=== PATIENT | female | born 2000 | race Caucasian/White ===

== ENCOUNTER 2018-05-13 14:16 | Emergency (ER) | payer OTHER, SELFPAY ==
--- NOTE | 2018-05-13 14:45 | ER ---
Nurse's Notes [facility] Name: Abi Reynolds Age: 18 yrs Sex: Female : 2000 Arrival Date: 05/13/2018 Time: 14:19 Bed 24 Private MD: Diagnosis: Bronchitis, not specified as acute or chronic;Otitis media, unspecified, bilateral Presentation: 05/13 14:23 Presenting complaint: Patient states: nohelia been sick for 6-8 weeks now; my both ears hj have been hurting for a week now and im congested; reports cough; denies fever and chills;. Transition of care: patient was not received from another setting of care. Onset of symptoms was May 13, 2018. Risk Assessment: Do you want to hurt yourself or someone else? Patient reports no desire to harm self or others. Initial Sepsis Screen: Does the patient meet any 2 criteria? No. Patient's initial sepsis screen is negative. Does the patient have a suspected source of infection? Yes: Productive cough/pneumonia. Care prior to arrival: None. 14:23 Method Of Arrival: Ambulatory 14:23 Acuity: MALINA 4 hj Triage Assessment: 14:25 General: Appears in no apparent distress. uncomfortable, Behavior is calm, cooperative, hj appropriate for age. Pain: Denies pain. EENT: Reports pain. 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 - Social history:: Smoking status: Patient uses tobacco products, Patient uses alcohol. - Ebola Screening: : Patient negative for fever greater than or equal to 101.5 degrees Fahrenheit, and additional compatible Ebola Virus Disease symptoms Patient denies exposure to infectious person Patient denies travel to an Ebola-affected area in the 21 days before illness onset. Screenin:25 Abuse screen: Denies threats or abuse. Has been threatened or abused. Abuse screen: hj Denies injuries from another. Nutritional screening: On. Nutritional screening: No deficits noted. Tuberculosis screening: No symptoms or risk factors identified. Fall Risk None identified. Assessment: 14:25 Respiratory: Airway is patent Respiratory effort is even, unlabored, Respiratory hj pattern is regular, symmetrical, Breath sounds are clear. EENT: Throat. 14:55 Reassessment: Patient appears in no apparent distress at this time. No changes from tl3 previously documented assessment. Patient and/or family updated on plan of care and expected duration. Pain level reassessed. Patient is alert, oriented x 3, equal unlabored respirations, skin warm/dry/pink. 15:00 General: Appears in no apparent distress. slender, well groomed, well developed, well tl3 nourished, Behavior is calm, cooperative, appropriate for age. 15:00 Reassessment: No changes from previously documented assessment. Patient and/or family tl3 updated on plan of care and expected duration. Pain level reassessed. Patient is alert, oriented x 3, equal unlabored respirations, skin warm/dry/pink. Vital Signs: 14:25 BP 119 / 81; Pulse 85; Resp 18; Temp 97.9(TE); Pulse Ox 99% on R/A; Weight 74.84 kg; hj Height 5 ft. 6 in. (167.64 cm); Pain 0/10; 14:56 BP 107 / 75; Pulse 82; Resp 18; Pulse Ox 100% on R/A; tl3 14:25 Body Mass Index 26.63 (74.84 kg, 167.64 cm) ED Course: 14:19 Patient arrived in ED. mr 14:24 Triage completed. hj 14:25 Arm band placed on right wrist. hj 14:26 Patient has correct armband on for positive identification. Bed in low position. Call hj light in reach. Side rails up X 1. 14:28 Jane Mcduffie, ARY is Primary Nurse. tl3 14:29 Ct Krause FNP-C is PHCP. snw 14:29 Vincent Perez MD is Attending Physician. snw 14:37 Strep swab sent to lab. tm3 14:56 No provider procedures requiring assistance completed. Patient did not have IV access tl3 during this emergency room visit. Administered Medications: 14:50 Drug: predniSONE 20 mg Route: PO; tl3 15:31 Follow up: Response: Medication administered at discharge. tl3 14:50 Drug: Augmentin 875 mg Route: PO; tl3 15:31 Follow up: Response: Medication administered at discharge. tl3 14:50 Drug: Albuterol 2.5 mg Route: Inhalation; tl3 15:30 Follow up: Response: Medication administered at discharge. tl3 14:50 Drug: ZyrTEC - Cetirizine 10 mg Route: PO; tl3 15:30 Follow up: Response: Medication administered at discharge. tl3 Outcome: 14:45 Discharge ordered by MD. arreguin 14:56 Discharged to home ambulatory. tl3 14:56 Condition: good 14:56 Discharge instructions given to patient, Instructed on discharge instructions, follow up and referral plans. medication usage, Demonstrated understanding of instructions, follow-up care, medications, Prescriptions given X 3. 15:34 Patient left the ED. tl3 Signatures: Marko Jaimes tm3 Ct Krause, JOB HAND-C JOB HAND-Csnw CoffmanDaniela esteves mr LangstonFroylan, RN RN Jane Alberts RN RN tl3 Corrections: (The following items were deleted from the chart) 14:27 14:25 Pulse 85bpm; Resp 18bpm; Pulse Ox 99% RA; Temp 97.9F Temporal; 74.84 kg; Height 5 hj ft. 6 in.; BMI: 26.6; Pain 0/10; hj 15:33 14:56 General: Appears in no apparent distress. slender, well groomed, well developed, tl3 well nourished, Behavior is calm, cooperative, appropriate for age, tl3 15:33 14:56 Pain: Complains of pain in throat tl3 tl3 15:33 14:56 Neuro: Level of Consciousness is awake, alert, obeys commands, Oriented to tl3 person, place, time, situation, Appropriate for age tl3 15:33 14:56 Cardiovascular: Patient's skin is warm and dry. tl3 tl3 15:33 14:56 Respiratory: Airway is patent Respiratory effort is even, unlabored, Respiratory tl3 pattern is regular, symmetrical, tl3 15:33 14:56 GI: No deficits noted. No signs and/or symptoms were reported involving the tl3 gastrointestinal system. tl3 15:33 14:56 : No deficits noted. No signs and/or symptoms were reported regarding the tl3 genitourinary system. tl3 15:33 14:56 EENT: Throat is reddened tl3 tl3 15:33 14:56 Derm: No signs and/or symptoms reported regarding the dermatologic system. tl3 tl3 15:33 14:56 Musculoskeletal: No deficits noted. No signs and/or symptoms reported regarding tl3 the musculoskeletal system. tl3
--- NOTE | 2018-05-13 14:45 | EDPHYS ---
Physician Documentation [facility] Name: Abi Reynolds Age: 18 yrs Sex: Female : 2000 Arrival Date: 05/13/2018 Time: 14:19 Bed 24 Private MD: ED Physician Vincent Perez HPI: 05/13 14:42 This 18 yrs old Female presents to ER via Ambulatory with complaints of snw Cough, Sore Throat. 14:42 The patient or guardian reports cough, intermittent, ear fullness, sinus pain, snw congestion, sore throat. Onset: The symptoms/episode began/occurred gradually, intermittent over 6-8 weeks. Severity of symptoms: At their worst the symptoms were mild, moderate. Associated signs and symptoms: The patient has no apparent associated signs or symptoms, Pertinent negatives: fever. The patient has not experienced similar symptoms in the past. The patient has not recently seen a physician. 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 - Social history:: Smoking status: Patient uses tobacco products, Patient uses alcohol. - Ebola Screening: : Patient negative for fever greater than or equal to 101.5 degrees Fahrenheit, and additional compatible Ebola Virus Disease symptoms Patient denies exposure to infectious person Patient denies travel to an Ebola-affected area in the 21 days before illness onset. ROS: 14:41 Constitutional: Negative for fever, chills, and weight loss, Eyes: Negative for injury, snw pain, redness, and discharge, Neck: Negative for injury, pain, and swelling, Cardiovascular: Negative for chest pain, palpitations, and edema, Abdomen/GI: Negative for abdominal pain, nausea, vomiting, diarrhea, and constipation, Back: Negative for injury and pain, : Negative for injury, bleeding, discharge, and swelling, MS/Extremity: Negative for injury and deformity, Skin: Negative for injury, rash, and discoloration, Neuro: Negative for headache, weakness, numbness, tingling, and seizure. 14:41 ENT: Positive for sinus congestion, sinus pain, sore throat. 14:41 Respiratory: Positive for cough, with no reported sputum. Exam: 14:39 Constitutional: This is a well developed, well nourished patient who is awake, alert, snw and in no acute distress. Head/Face: Normocephalic, atraumatic. Eyes: Pupils equal round and reactive to light, extra-ocular motions intact. Lids and lashes normal. Conjunctiva and sclera are non-icteric and not injected. Cornea within normal limits. Periorbital areas with no swelling, redness, or edema. ENT: Nares patent. No nasal discharge, no septal abnormalities noted. Tympanic membranes are erythematous with fluid visible and external auditory canals are clear. Oropharynx with redness, no swelling, or masses, exudates, or evidence of obstruction, uvula midline. Mucous membranes moist. Neck: Trachea midline, no thyromegaly or masses palpated, and no cervical lymphadenopathy. Supple, full range of motion without nuchal rigidity, or vertebral point tenderness. No Meningismus. Chest/axilla: Normal chest wall appearance and motion. Nontender with no deformity. No lesions are appreciated. Cardiovascular: Regular rate and rhythm with a normal S1 and S2. No gallops, murmurs, or rubs. Normal PMI, no JVD. No pulse deficits. 14:39 Abdomen/GI: Soft, non-tender, with normal bowel sounds. No distension or tympany. No guarding or rebound. No evidence of tenderness throughout. Back: No spinal tenderness. No costovertebral tenderness. Full range of motion. Skin: Warm, dry with normal turgor. Normal color with no rashes, no lesions, and no evidence of cellulitis. MS/ Extremity: Pulses equal, no cyanosis. Neurovascular intact. Full, normal range of motion. Neuro: Awake and alert, GCS 15, oriented to person, place, time, and situation. Cranial nerves II-XII grossly intact. Motor strength 5/5 in all extremities. Sensory grossly intact. Cerebellar exam normal. Normal gait. Psych: Awake, alert, with orientation to person, place and time. Behavior, mood, and affect are within normal limits. 14:39 Respiratory: the patient does not display signs of respiratory distress, Respirations: normal, Breath sounds: wheezing: that is mild, is heard diffusely. Vital Signs: 14:25 BP 119 / 81; Pulse 85; Resp 18; Temp 97.9(TE); Pulse Ox 99% on R/A; Weight 74.84 kg; hj Height 5 ft. 6 in. (167.64 cm); Pain 0/10; 14:56 BP 107 / 75; Pulse 82; Resp 18; Pulse Ox 100% on R/A; tl3 14:25 Body Mass Index 26.63 (74.84 kg, 167.64 cm) hj MDM: 14:30 Patient medically screened. snw 14:46 Data reviewed: vital signs, nurses notes. Data interpreted: Pulse oximetry: on room air snw is 99 %. Interpretation: normal. Counseling: I had a detailed discussion with the patient and/or guardian regarding: the historical points, exam findings, and any diagnostic results supporting the discharge/admit diagnosis, the need for outpatient follow up, to return to the emergency department if symptoms worsen or persist or if there are any questions or concerns that arise at home. Special discussion: Based on the history and exam findings, there is no indication for further emergent testing or inpatient evaluation. I discussed with the patient/guardian the need to see the primary care provider for further evaluation of the symptoms. 05/13 14:31 Order name: Strep; Complete Time: 15:04 tl3 05/13 15:02 Order name: Throat Culture EDMS Administered Medications: 14:50 Drug: predniSONE 20 mg Route: PO; tl3 15:31 Follow up: Response: Medication administered at discharge. tl3 14:50 Drug: Augmentin 875 mg Route: PO; tl3 15:31 Follow up: Response: Medication administered at discharge. tl3 14:50 Drug: Albuterol 2.5 mg Route: Inhalation; tl3 15:30 Follow up: Response: Medication administered at discharge. tl3 14:50 Drug: ZyrTEC - Cetirizine 10 mg Route: PO; tl3 15:30 Follow up: Response: Medication administered at discharge. tl3 Disposition: 17:53 Co-signature as Attending Physician, Vincent Perez MD. rn Disposition: 05/13/18 14:45 Discharged to Home. Impression: Bronchitis, not specified as acute or chronic, Otitis media, unspecified, bilateral. - Condition is Stable. - Discharge Instructions: Acute Bronchitis, Adult, Otitis Media, Adult, Fever, Adult, Hypertension, How to Use an Inhaler, Steps to Quit Smoking, Cool Mist Vaporizer, Rehydration, Adult. - Prescriptions for Augmentin 875- 125 mg Oral Tablet - take 1 tablet by ORAL route every 12 hours for 10 days; 20 tablet. Zyrtec 10 mg Oral Tablet - take 1 tablet by ORAL route once daily As needed; 20 tablet. Albuterol Sulfate 90 mcg/actuation - inhale 1-2 puff by INHALATION route every 4-6 hours; 1 Inhaler. - Medication Reconciliation Form, Thank You Letter, Antibiotic Education, Prescription Opioid Use form. - Follow up: Private Physician; When: 2 - 3 days; Reason: Recheck today's complaints, Continuance of care, Re-evaluation by your physician. Follow up: Emergency Department; When: As needed; Reason: Worsening of condition. Signatures: Dispatcher [employer] EDMS Ct Krause, SYSTEM PLANNING ENGINEER-C SYSTEM PLANNING ENGINEER-Csnw Vincent Perez MD MD rn Joaquin, Henry, RN RN hj Lowrey, Tammy, RN RN tl3 Corrections: (The following items were deleted from the chart) 15:34 14:45 05/13/2018 14:45 Discharged to Home. Impression: Bronchitis, not specified as tl3 acute or chronic; Otitis media, unspecified, bilateral. Condition is Stable. Forms are Medication Reconciliation Form, Thank You Letter, Antibiotic Education, Prescription Opioid Use. Follow up: Private Physician; When: 2 - 3 days; Reason: Recheck today's complaints, Continuance of care, Re-evaluation by your physician. Follow up: Emergency Department; When: As needed; Reason: Worsening of condition. snw
[2018-05-13] MEDS ORDERED: CETIRIZINE HCL 5 MG TABLET ONE (14:57)
[2018-05-13] MEDS ORDERED: ALBUTEROL 2.5 MG/3 ML NEB SOL ONE (14:58)
[2018-05-13] MEDS ORDERED: predniSONE 20 MG TAB ONE (14:58)
[2018-05-13] MEDS ORDERED: AMOX/K CLAV 875 MG TAB ONE (14:59)
--- OUTSIDE RECORDS SUMMARY | 2018-05-13 19:02 | XMS REPORT | Summary of Care ---
:2000 Author Organization [facility] Address [address] [place], [place] [address]- Encounter HQ Xander(FIN) [id number] Date(s): 07/13/16 - 07/13/16 [facility] [address] [place] [address]- [phone] Discharge Diagnosis: Nausea vomiting and diarrhea Discharge Diagnosis: Abdominal pain, acute Discharge Disposition: Home or Self Care Attending Physician: Saw Guaman MD Vital Signs Most recent to oldest 1 2 3 [Reference Range]: Height 167.64 cm (07/13/16 2:47 PM) Temperature Oral [96.4-99.1 97.8 DegF 98.2 DegF DegF] (07/13/16 7:41 PM) (07/13/16 2:47 PM) Blood Pressure [90-140/60-90 108/71 mmHg 112/67 mmHg 126/89 mmHg mmHg] (07/13/16 8:00 PM) (07/13/16 7:41 PM) (07/13/16 2:47 PM) Respiratory Rate [14-20 BRMIN] 16 BRMIN 16 BRMIN 17 BRMIN (07/13/16 8:00 PM) (07/13/16 7:41 PM) (07/13/16 2:47 PM) Peripheral Pulse Rate [60-100 71 bpm 61 bpm 110 bpm bpm] (07/13/16 8:00 PM) (07/13/16 7:41 PM) *HI* (07/13/16 2:47 PM) Weight 88.636 kg (07/13/16 2:47 PM) Body Mass Index 31.54 m2 (07/13/16 2:47 PM) Problem List No data available for this section Allergies, Adverse Reactions, Alerts Substance Reaction Severity Status NKDA Active Medications famotidine 20 mg, 2 mL, Route: IVP, Drug form: INJ, ONCE, Dosing Weight 88.636, kg, Priority: STAT, Start date:07/13/16 17:48:00 PHYSICAL MEDICINE PHYSICIAN, Stop date: 07/13/16 17:48:00 PHYSICAL MEDICINE PHYSICIAN Notes: (Same as: Pepcid)Can be dilute in 5-10cc NS IVP: Slow IV push over at least 2 minutes. Start Date: 07/13/16 Stop Date: 07/13/16 Status: CompletedGI cocktail 30 mL, Route: PO, Drug Form: SUSP, Dosing Weight 88.636, kg, ONCE, STAT, Start date: 07/13/16 17:48:00 PHYSICAL MEDICINE PHYSICIAN, Stop date: 07/13/16 17:48:00 PHYSICAL MEDICINE PHYSICIAN Notes: G.I. Cocktail=antacid with simethicone 22.5 mL - lidocaine viscous 7.5 mL Start Date: 07/13/16 Stop Date: 07/13/16 Status: Completedondansetron 4 mg, 2 mL, Route: IVP, Drug form: INJ, ONCE, Dosing Weight 88.636, kg, Priority : STAT, Start date: 07/13/16 17:48:00 PHYSICAL MEDICINE PHYSICIAN, Stop date: 07/13/16 17:48:00 PHYSICAL MEDICINE PHYSICIAN Notes: (Same as: Kevin) MEDICATION WASTE Product Size: 4 mgProduct Wasted: ___ mg Start Date: 07/13/16 Stop Date: 07/13/16 Status: Completedondansetron 4 mg oral tablet, disintegrating 4 mg=1 tab, PO, TID, PRN Nausea / Vomiting, Dissolve tab under tongue, X 3 day, # 10 tab, 0 Refill(s) Start Date: 07/13/16 Stop Date: 07/16/16 Status: OrderedSodium Chloride 0.9% (Bolus) IV 1,000 mL, 1000 ml/hr, Infuse Over: 1 hr, Route: IV, 1,000, Drug form: INJ, ONCE , Priority: STAT, Dosing Weight 88.636 kg, Start date: 07/13/16 17:47:00 PHYSICAL MEDICINE PHYSICIAN, Duration: 1 doses or times, Stop date: 07/13/16 17:47:00 PHYSICAL MEDICINE PHYSICIAN Start Date: 07/13/16 Stop Date: 07/13/16 Status: Completed Results ELECTROLYTES Most recent to oldest [Reference Range]: 1 2 Sodium Lvl [135-145 mEq/L] 138 mEq/L (07/13/16 6:27 PM) Potassium Lvl [3.5-5.1 mEq/L] 3.7 mEq/L (07/13/16 6:27 PM) Chloride Lvl [95-109 mEq/L] 103 mEq/L (07/13/16 6:27 PM) CO2 [24-32 mEq/L] 25 mEq/L (07/13/16 6:27 PM) AGAP [10.0-20.0 mEq/L] 13.7 mEq/L (07/13/16 6:27 PM) CHEM PANEL Most recent to oldest [Reference Range]: 1 2 Creatinine Lvl [0.50-1.40 mg/dL] 0.63 mg/dL (07/13/16 6:27 PM) eGFR 131 mL/min/1.73m2 1 *NA* (07/13/16 6:27 PM) BUN [7-22 mg/dL] 10 mg/dL (07/13/16 6:27 PM) B/C Ratio [6-25] 16 (07/13/16 6:27 PM) Glucose Lvl [70-99 mg/dL] 87 mg/dL (07/13/16 6:27 PM) Total Protein [6.4-8.4 g/dL] 7.8 g/dL (07/13/16 6:27 PM) Albumin Lvl [3.5-5.0 g/dL] 3.6 g/dL (07/13/16 6:27 PM) Globulin [2.7-4.2 g/dL] 4.2 g/dL (07/13/16 6:27 PM) A/G Ratio [0.7-1.6] 0.9 (07/13/16 6:27 PM) Calcium Lvl [8.5-10.5 mg/dL] 8.4 mg/dL *LOW* (07/13/16 6:27 PM) ALT [0-65 unit/L] 22 unit/L (07/13/16 6:27 PM) AST [0-37 unit/L] 15 unit/L (07/13/16 6:27 PM) Alk Phos [39-136 unit/L] 43 unit/L (07/13/16 6:27 PM) Bili Total [0.2-1.3 mg/dL] 0.6 mg/dL (07/13/16 6:27 PM) Amylase Lvl [25-115 unit/L] 42 unit/L (07/13/16 6:27 PM) Lipase Lvl [73-393 unit/L] 110 unit/L 107 unit/L (07/13/16 6:27 PM) (07/13/16 6:27 PM) 1Result Comment: The eGFR is calculated using the CKD-EPI formula. In most young , healthy individualsthe eGFR will be >90 mL/min/1.73m2. The eGFR declines with age. An eGFR of 60-89 may be normal in some populations, particularly the elderly, for whom the CKD-EPI formula has not been extensively validated. Use of the eGFR is not recommended in the following populations: Individuals with unstable creatinine concentrations, including patients and those with serious co-morbid conditions. Patients with extremes in muscle mass or diet. The data above are obtained from the National Kidney Disease Education Program ( NKDEP) which additionally recommends that when the eGFR is used in patients with extremes of body mass index for purposesof drug dosing, the eGFR should be multiplied by the estimated BMI.URINE CHEM Most recent to oldest [Reference Range]: 1 2 U Preg [Negative] Negative (07/13/16 6:38 PM) URINE AND STOOL Most recent to oldest [Reference Range]: 1 2 UA Turbidity [Clear] Marked *ABN* (07/13/16 6:38 PM) UA Color [Yellow] Yellow *NA* (07/13/16 6:38 PM) UA pH [5.0-8.0] 6.0 (07/13/16 6:38 PM) UA Spec Grav [<=1.030] 1.027 (07/13/16 6:38 PM) UA Glucose [Negative mg/dL] Negative mg/dL *NA* (07/13/16 6:38 PM) UA Blood [Negative] Negative (07/13/16 6:38 PM) UA Ketones [Negative mg/dL] Trace mg/dL *ABN* (07/13/16 6:38 PM) UA Protein [Negative mg/dL] Negative mg/dL (07/13/16 6:38 PM) UA Urobilinogen [0.1-1.0 mg/dL] <=1.0 mg/dL *NA* (07/13/16 6:38 PM) UA Bili [Negative] Negative *NA* (07/13/16 6:38 PM) UA Leuk Est [Negative] Small *ABN* (07/13/16 6:38 PM) UA Nitrite [Negative] Negative (07/13/16 6:38 PM) UA WBC [0-5 /HPF] 7 /HPF *HI* (07/13/16 6:38 PM) UA RBC [0-2 /HPF] 2 /HPF (07/13/16 6:38 PM) UA Sq Epi [Few /LPF] Many /LPF *ABN* (07/13/16 6:38 PM) UA Renal Epi [<=0 /LPF] 7 /LPF *HI* (07/13/16 6:38 PM) UA Mucus [None Seen /LPF] Few /LPF *NA* (07/13/16 6:38 PM) HEMATOLOGY Most recent to oldest [Reference Range]: 1 2 WBC [3.7-10.4 K/CMM] 14.9 K/CMM *HI* (07/13/16 6:27 PM) RBC [4.20-5.40 M/CMM] 5.03 M/CMM (07/13/16 6:27 PM) Hgb [12.0-16.0 g/dL] 13.7 g/dL (07/13/16 6:27 PM) Hct [36.0-48.0 %] 41.5 % (07/13/16 6:27 PM) MCV [80.0-98.0 fL] 82.5 fL (07/13/16 6:27 PM) MCH [27.0-31.0 pg] 27.2 pg (07/13/16 6:27 PM) MCHC [32.0-36.0 g/dL] 33.0 g/dL (07/13/16 6:27 PM) RDW [11.5-14.5 %] 17.0 % *HI* (07/13/16 6:27 PM) Platelet [133-450 K/CMM] 212 K/CMM (07/13/16 6:27 PM) MPV [7.4-10.4 fL] 10.6 fL *HI* (07/13/16 6:27 PM) Segs [45.0-75.0 %] 84.1 % *HI* (07/13/16 6:27 PM) Lymphocytes [20.0-40.0 %] 12.0 % *LOW* (07/13/16 6:27 PM) Monocytes [2.0-12.0 %] 3.5 % (07/13/16 6:27 PM) Basophils [0.0-1.0 %] 0.4 % (07/13/16 6:27 PM) Segs-Bands # [1.5-8.1 K/CMM] 12.5 K/CMM *HI* (07/13/16 6:27 PM) Lymphocytes # [1.0-5.5 K/CMM] 1.8 K/CMM (07/13/16 6:27 PM) Monocytes # [0.0-0.8 K/CMM] 0.5 K/CMM (07/13/16 6:27 PM) Basophils # [0.0-0.2 K/CMM] 0.1 K/CMM (07/13/16 6:27 PM) Immunizations No data available for this section Procedures No data available for this section Social History Social History Type Response Smoking Status Former smoker; Exposure to Tobacco Smoke None; Cigarette Smoking Last 365 Days No; Reg Smoking Cessation Counseling No Assessment and Plan No data available for this section
--- OUTSIDE RECORDS SUMMARY | 2018-05-13 19:02 | XMS REPORT | Continuity of Care Document ---
:2000 Author Organization Interface Problems Problem Status Onset Classification Date Comments Source Date Reported Discharge 02/09/2017 [facility] Diagnosis: 7 Seizure SEIZURE Active [facility] 7 Discharge 08/25/2016 [facility] Diagnosis: 7 Orthostasis Discharge 08/25/2016 [facility] Diagnosis: 7 Headache DRVitaliy SENT-HEAD Active [facility] PAIN 7 Discharge 07/16/2016 [facility] Diagnosis: 7 Nausea vomiting and diarrhea Discharge 07/16/2016 [facility] Diagnosis: 7 Abdominal pain, acute ABD PAIN/ Active [facility] VOMITTING 7 Medications Medication Details Route Status Patient Ordering Order Source Instructions Provider Date Sodium Chloride 1,000 mL, Inactive 0.9% (Bolus) IV 1,000 ml/hr, 2016 [facility] Infuse Over: 1 hr, Route: IV, 1,000, Drug form: INJ, ONCE, Priority: STAT, Dosing Weight 86.364 kg, Start date: 02/06/17 11:19:00 CDT, Duration: 1 doses or times, Stop date: 02/06/17 11:19:00 CDT Saline Flush 10 mL, Route: Inactive 0.9% IVP, Drug 2016 [facility] Form: INJ, Dosing Weight 86.364, kg, PRN, PRN Line Flush, Start date: 02/06/17 11:19:00 CDT, Duration: 30 day, Stop date: 03/08/17 11:18:00 CDTNotes: (Same as: BD Posiflush) ibuprofen 800 mg 800 mg=1 tab, No Longer oral tablet PO, Q8H, PRN Active 2016 [facility] Pain, Take with food, # 30 tab, 0 Refill(s) Sodium Chloride 1,000 mL, Inactive 0.154 MEQ/ML Infuse Over: 2016 [facility] Injectable 0.5 hr, Solution Route: IV, Drug form: INJ, ONCE, Priority: STAT, Dosing Weight 88.636 kg, Start date: 08/22/16 11:35:00 CDT, Stop date: 08/22/16 11:35:00 CDT Ondansetron 4 MG 4 mg=1 tab, Active Disintegrating PO, TID, PRN 2016 [facility] Tablet Nausea / Vomiting, Dissolve tab under tongue, X 3 day, # 10 tab, 0 Refill(s) Famotidine 20 mg, 2 mL, Inactive Route: IVP, 2016 [facility] Drug form: INJ, ONCE, Dosing Weight 88.636, kg, Priority: STAT, Start date: 07/13/16 17:48:00 HARP REPAIRER, Stop date: 07/13/16 17:48:00 CSTNotes: (Same as: Pepcid) Can be dilute in 5-10cc NS IVP: Slow IV push over at least 2 minutes. GI cocktail 30 mL, Route: Inactive PO, Drug 2016 [facility] Form: SUSP, Dosing Weight 88.636, kg, ONCE, STAT, Start date: 07/13/16 17:48:00 HARP REPAIRER, Stop date: 07/13/16 17:48:00 CSTNotes: G.I. Cocktail=anta jeannette with simethicone 22.5 mL - lidocaine viscous 7.5 mL Ondansetron 4 mg, 2 mL, Inactive Route: IVP2016 [facility] Drug form: INJ, ONCE, Dosing Weight 88.636, kg, Priority: STAT, Start date: 07/13/16 17:48:00 HARP REPAIRER, Stop date: 07/13/16 17:48:00 CSTNotes: (Same as: Zofran) MEDICATION WASTE Product Size: 4 mg Product Wasted: ___ mg Sodium Chloride 1,000 mL, Inactive 0.154 MEQ/ML 1000 ml/hr, 2016 [facility] Injectable Infuse Over: Solution 1 hr, Route: IV, 1,000, Drug form: INJ, ONCE, Priority: STAT, Dosing Weight 88.636 kg, Start date: 07/13/16 17:47:00 HARP REPAIRER, Duration: 1 doses or times, Stop date: 07/13/16 17:47:00 HARP REPAIRER Allergies, Adverse Reactions, Alerts Substance Category Reaction Severity Reaction Status Date Comments Source type Reported Immunizations Immunization Date Given Site Status Last Updated Comments Source Results Order Name Results Value Reference Date Interpretation Comments Source Range CHEM PANEL eGFR 134 02/06 Result Comment: The eGFR is calculated using the CKD-EPI formula. In most young, healthy individuals the eGFR will be >90 mL/ min/1.73m2. The eGFR declines with age. An eGFR of 60-89 may be normal in mL/min/1.7 /2017 some populations, particularly the elderly, for whom the CKD-EPI formula has not been extensively validated. Use of the eGFR is not recommended in the following populations: [address] Individuals with unstable creatinine concentrations, including patients and those with serious co-morbid conditions. Patients with extremes in muscle mass or diet. The data above are obtained from the National Kidney Disease Education Program (NKDEP) which additionally recommends that when the eGFR is used in patients with extremes of body mass index for purposes of drug dosing, the eGFR should be multiplied by the estimated BMI. CHEM PANEL AST 13 unit/L 0 - 37 02/06 [facility] CHEM PANEL Alk Phos 48 unit/L 39 - 136 02/06 [facility] CHEM PANEL ALT 22 unit/L 0 - 65 02/06 [facility] CHEM PANEL Albumin Lvl 3.3 g/dL 3.5 - 5.0 02/06 [facility] CHEM PANEL Creatinine 0.58 mg/dL 0.50 - 02/06 [facility] Lvl 1.40 /2016 [facility] CHEM PANEL Potassium 3.7 meq/L 3.5 - 5.1 02/06 MH Lvl [facility] CHEM PANEL BUN 13 mg/dL 7 - 22 02/06 [facility] CHEM PANEL Sodium Lvl 137 meq/L 135 - 145 02/06 [facility] CHEM PANEL Bili Total 0.3 mg/dL 0.2 - 1.3 02/06 [facility] CHEM PANEL Chloride Lvl 105 meq/L 95 - 109 02/06 [facility] CHEM PANEL Calcium Lvl 8.3 mg/dL 8.5 - 10.5 02/06 [facility] CHEM PANEL Total 7.5 g/dL 6.4 - 8.4 02/06 [facility] CHEM PANEL CO2 25 meq/L 24 - 32 02/06 [facility] CHEM PANEL Glucose Lvl 88 mg/dL 70 - 99 02/06 [facility] CHEM PANEL B/C Ratio 22 6 - 25 02/06 [facility] CHEM PANEL Globulin 4.2 g/dL 2.7 - 4.2 02/06 [facility] CHEM PANEL AGAP 10.7 meq/L 10.0 - 02/06 20.0 /2016 [facility] CHEM PANEL A/G Ratio 0.8 0.7 - 1.6 02/06 [facility] DRUG U Kelly Scr Negative Negative 02/06 SCREEN [facility] *NA* (02/06/17 11:37 AM) DRUG U Benzodia Negative Negative 02/06 SCREEN Scr [facility] *NA* (02/06/17 11:37 AM) DRUG U Cocaine Negative Negative 02/06 SCREEN Scr [facility] *NA* (02/06/17 11:37 AM) DRUG U Cannab Scr Positive Negative 02/06 SCREEN [facility] *ABN* (02/06/17 11:37 AM) DRUG U Opiate Scr Negative Negative 02/06 [facility] *NA* (02/06/17 11:37 AM) DRUG U Phencyc Negative Negative 02/06 SCREEN Scr [facility] *NA* (02/06/17 11:37 AM) DRUG UDS Note See Note 02/06 [facility] (02/06/17 11:37 AM) DRUG U Amph Scr Negative Negative 02/06 SCREEN [facility] *NA* (02/06/17 11:37 AM) ENDOCRINOL S Preg Negative Negative 02/06 OGY [facility] *NA* (02/06/17 11:37 AM) HEMATOLOGY Eosinophils 0.2 K/CMM 0.0 - 0.5 02/06 MH # /2016 [facility] HEMATOLOGY Monocytes # 0.7 K/CMM 0.0 - 0.8 02/06 [facility] HEMATOLOGY Basophils # 0.1 K/CMM 0.0 - 0.2 02/06 [facility] HEMATOLOGY Lymphocytes 2.9 K/CMM 1.0 - 5.5 02/06 MH # /2016 [facility] HEMATOLOGY Segs-Bands # 7.2 K/CMM 1.5 - 8.1 02/06 [facility] HEMATOLOGY Monocytes 5.9 % 2.0 - 12.0 02/06 [facility] HEMATOLOGY Lymphocytes 26.2 % 20.0 - 02/06 MH 40.0 /2017 [facility] HEMATOLOGY Basophils 0.9 % 0.0 - 1.0 02/06 [facility] HEMATOLOGY Eosinophils 1.5 % 0.0 - 4.0 02/06 [facility] HEMATOLOGY Segs 65.5 % 45.0 - 02/06 MH 75.0 /2016 [facility] HEMATOLOGY INR 0.93 0.85 - 02/06 MH 1.17 /2016 [facility] HEMATOLOGY PT 12.7 s 12.0 - 02/06 MH 14.7 [facility] HEMATOLOGY RBC 4.85 M/CMM 4.20 - 02/06 MH 5.40 /2016 [facility] HEMATOLOGY Hgb 12.5 g/dL 12.0 - 02/06 MH 16.0 [facility] HEMATOLOGY RDW 16.3 % 11.5 - 02/06 MH 14.5 [facility] HEMATOLOGY MCHC 32.4 g/dL 32.0 - 02/06 MH 36.0 /2016 [facility] HEMATOLOGY MPV 11.5 fL 7.4 - 10.4 02/06 [facility] HEMATOLOGY Platelet 228 K/CMM 133 - 450 02/06 [facility] HEMATOLOGY MCV 79.7 fL 80.0 - 02/06 MH 98.0 /2016 [facility] HEMATOLOGY Hct 38.7 % 36.0 - 02/06 MH 48.0 /2016 [facility] HEMATOLOGY MCH 25.8 pg 27.0 - 02/06 31.0 /2016 [facility] HEMATOLOGY WBC 11.0 K/CMM 3.7 - 10.4 02/06 [facility] HEMATOLOGY PTT 27.7 s 22.9 - 02/06 MH 35.8 /2016 [facility] URINE AND UA Color Gwen 02/06 STOOL [facility] URINE AND UA <=1.0 0.1 - 1.0 02/06 STOOL Urobilinogen mg/dL /2016 [facility] URINE AND UA Spec Grav 1.030 <=1.030 02/06 STOOL [facility] URINE AND UA Nitrite Negative Negative 02/06 STOOL [facility] (02/06/17 11:37 AM) URINE AND UA Leuk Est Large Negative 02/06 STOOL [facility] *ABN* (02/06/17 11:37 AM) URINE AND UA Sq Epi Many /LPF Few /LPF 02/06 STOOL [facility] URINE AND UA WBC 5 /HPF 0 - 5 02/06 STOOL [facility] URINE AND UA Bacteria Occasional None Seen 02/06 STOOL /HPF /HPF [facility] URINE AND UA Mucus Few /LPF None Seen 02/06 STOOL /LPF /2016 [facility] URINE AND UA Glucose Negative Negative 02/06 STOOL mg/dL mg/dL [facility] URINE AND UA Turbidity Marked Clear 02/06 [facility] *ABN* (02/06/17 11:37 AM) URINE AND UA Protein Negative Negative 02/06 STOOL mg/dL mg/dL [facility] URINE AND UA pH 5.0 5.0 - 8.0 02/06 [facility] URINE AND UA Ketones Negative Negative 02/06 STOOL mg/dL mg/dL [facility] URINE AND UA Blood Negative Negative 02/06 [facility] (02/06/17 11:37 AM) URINE AND UA Bili Negative Negative 02/06 [facility] *NA* (02/06/17 11:37 AM) Brain wo Brain wo Addendum: I have reviewed this examination and concur with the interpretation. 02/06 - contrast contrast CT /2016 - CT CT HEAD WITHOUT CONTRAST: Read by: Sherrie New MD Dictated Date/time: 02/06/17 13:40 HISTORY: New onset of seizures. The patient had normal noncontrast brain CT on 08/22/2016. Electronically Signed by: Sherrie New MD 02/06/17 13:41 FINAL REPORT - - TECHNIQUE: Multislice axial acquisitions were done without contrast. Sagittal and coronal reformatted images were also obtained. Read by: Cheng Brewer MD Dictated Date/time: 02/06/17 13:36 FINDINGS: There is no significant parenchymal abnormality, hemorrhage, infarct, mass, or shift. The ventricles and extra-axial spaces are within normal limits. There are no significant o Electronically Signed by: Cheng Brewer MD 02/06/17 13:39 sseous abnormalities. There is no significant change compared to the previous exam. FINAL REPORT IMPRESSION: No acute CT abnormalities of the brain. [facility] CHEM PANEL BUN 10 mg/dL 7 - 22 08/22 [facility] CHEM PANEL Glucose Lvl 93 mg/dL 70 - 99 08/22 [facility] CHEM PANEL Potassium 4.0 meq/L 3.5 - 5.1 08/22 MH Lvl /2016 [facility] CHEM PANEL Chloride Lvl 107 meq/L 95 - 109 08/22 [facility] CHEM PANEL Calcium Lvl 9.1 mg/dL 8.5 - 10.5 08/22 [facility] CHEM PANEL Sodium Lvl 140 meq/L 135 - 145 08/22 [facility] CHEM PANEL Creatinine 0.67 mg/dL 0.50 - 08/22 MH Lvl 1.40 [facility] CHEM PANEL CO2 26 meq/L 24 - 32 08/22 [facility] CHEM PANEL eGFR 129 08/22 Result Comment: The eGFR is calculated using the CKD-EPI formula. In most young, healthy individuals the eGFR will be >90 mL/ min/1.73m2. The eGFR declines with age. An eGFR of 60-89 may be normal in mL/min/1.7 some populations, particularly the elderly, for whom the CKD-EPI formula has not been extensively validated. Use of the eGFR is not recommended in the following populations: [address] Individuals with unstable creatinine concentrations, including patients and those with serious co-morbid conditions. Patients with extremes in muscle mass or diet. The data above are obtained from the National Kidney Disease Education Program (NKDEP) which additionally recommends that when the eGFR is used in patients with extremes of body mass index for purposes of drug dosing, the eGFR should be multiplied by the estimated BMI. CHEM PANEL AGAP 11.0 meq/L 10.0 - 08/22 MH 20.0 [facility] HEMATOLOGY MPV 10.8 fL 7.4 - 10.4 08/22 [facility] HEMATOLOGY Platelet 196 K/CMM 133 - 450 08/22 [facility] HEMATOLOGY RDW 15.2 % 11.5 - 08/22 MH 14.5 [facility] HEMATOLOGY MCHC 33.4 g/dL 32.0 - 08/22 MH 36.0 [facility] HEMATOLOGY MCH 27.8 pg 27.0 - 08/22 31.0 [facility] HEMATOLOGY MCV 83.5 fL 80.0 - 08/22 MH 98.0 [facility] HEMATOLOGY Hgb 14.0 g/dL 12.0 - 08/22 MH 16.0 [facility] HEMATOLOGY Hct 41.9 % 36.0 - 08/22 MH 48.0 [facility] HEMATOLOGY RBC 5.02 M/CMM 4.20 - 04 MH 5.40 /2017 [facility] HEMATOLOGY WBC 6.9 K/CMM 3.7 - 10.4 08/22 /2016 [facility] HEMATOLOGY Segs 59.3 % 45.0 - 04 MH 75.0 /2016 [facility] HEMATOLOGY Monocytes # 0.4 K/CMM 0.0 - 0.8 08/22 [facility] HEMATOLOGY Eosinophils 0.1 K/CMM 0.0 - 0.5 08/22 MH # /2016 [facility] HEMATOLOGY Basophils 0.6 % 0.0 - 1.0 08/22 [facility] HEMATOLOGY Segs-Bands # 4.1 K/CMM 1.5 - 8.1 08/22 [facility] HEMATOLOGY Lymphocytes 32.1 % 20.0 - 08/22 MH 40.0 /2016 [facility] HEMATOLOGY Monocytes 6.1 % 2.0 - 12.0 08/22 [facility] HEMATOLOGY Lymphocytes 2.2 K/CMM 1.0 - 5.5 08/22 # /2016 [facility] HEMATOLOGY Eosinophils 1.9 % 0.0 - 4.0 08/22 [facility] URINE AND UA Protein 100 mg/dL Negative 08/22 STOOL mg/dL /2016 [facility] URINE AND UA Glucose Negative Negative 08/22 STOOL mg/dL mg/dL [facility] URINE AND UA Ketones Negative Negative 08/22 STOOL mg/dL mg/dL /2016 [facility] URINE AND UA Bili Negative Negative 08/22 STOOL [facility] *NA* (08/22/16 10:38 AM) URINE AND UA Leuk Est Negative Negative 08/22 STOOL [facility] (08/22/16 10:38 AM) URINE AND UA RBC null 0 - 2 08/22 STOOL [facility] URINE AND UA Sq Epi Many /LPF Few /LPF 08/22 STOOL [facility] URINE AND UA WBC 1 /HPF 0 - 5 08/22 [facility]OL [facility] URINE AND UA Mucus Few /LPF None Seen 08/22 MH STOOL /LPF [facility] URINE AND UA Bacteria Occasional None Seen 08/22 STOOL /HPF /HPF [facility] URINE AND UA Color Red 08/22 STOOL [facility] URINE AND UA <=1.0 0.1 - 1.0 08/22 STOOL Urobilinogen mg/dL [facility] URINE AND UA pH 6.0 5.0 - 8.0 08/22 [facility] URINE AND UA Spec Grav 1.025 <=1.030 08/22 URINE AND UA Turbidity Slight Clear 08/22 *ABN* (08/22/16 10:38 AM) URINE AND UA Nitrite Negative Negative 08/22 (08/22/16 10:38 AM) URINE AND UA Blood Large Negative 08/22 *ABN* (08/22/16 10:38 AM) URINE CHEM U Preg Negative Negative 08/22 (08/22/16 10:38 AM) Brain wo Brain wo EXAM: CT BRAIN WITHOUT CONTRAST 08/22 - contrast contrast CT - CT DATE: 08/22/2016 10:55 AM CDT Read by: Sherman York MD Dictated Date/time: 08/22/16 12:06 Electronically Signed by: Sherman York MD 08/22/16 12:08 FINAL REPORT INDICATION: - headache intermittently ADDITIONAL INFORMATION AND CT DLP: 981.84 mGy-cm. COMPARISON: None. TECHNIQUE: Routine axial CT images of the brain were obtained. IV contrast: None. FINDINGS: Non-contrast images of the head demonstrate no edema, hemorrhage, mass lesion or other acute intracranial abnormality. Toribio-white matter distinction is preserved. The ventricles are normal. The basal cisterns and sulci are normal in size. Mild chronic inflammatory change of the paranasal sinus. Partial opacification of the mastoid air cells. IMPRESSION: 1. No definite acute infarct or intracranial hemorrhage detected. If there is further concern for intracranial pathology or acute stroke, MRI of the brain may be performed for complete assessment. SL: [id number] URINE AND UA <=1.0 0.1 - 1.0 07/14 STOOL Urobilinogen mg/dL /2016 URINE AND UA RBC 2 /HPF 0 - 2 07/14 URINE AND UA Renal Epi 7 /LPF <=0 /LPF 07/14 [facility] URINE AND UA Mucus Few /LPF None Seen 07/14 STOOL /LPF [facility] URINE AND UA Sq Epi Many /LPF Few /LPF 07/14 [facility] URINE AND UA Leuk Est Small Negative 07/14 [facility] *ABN* (07/13/16 6:38 PM) URINE AND UA WBC 7 /HPF 0 - 5 07/14 [facility] URINE AND UA Nitrite Negative Negative 07/14 [facility] (07/13/16 6:38 PM) URINE AND UA Blood Negative Negative 07/14 [facility] (07/13/16 6:38 PM) URINE AND UA Glucose Negative Negative 07/14 STOOL mg/dL mg/dL URINE AND UA Bili Negative Negative 07/14 [facility] *NA* (07/13/16 6:38 PM) URINE AND UA Ketones Trace Negative 07/14 STOOL mg/dL mg/dL [facility] URINE AND UA Protein Negative Negative 07/14 STOOL mg/dL mg/dL [facility] URINE AND UA pH 6.0 5.0 - 8.0 07/14 [facility] URINE AND UA Spec Grav 1.027 <=1.030 07/14 [facility] URINE AND UA Turbidity Marked Clear 07/14 [facility] *ABN* (07/13/16 6:38 PM) URINE AND UA Color Yellow Yellow 07/14 [facility] *NA* (07/13/16 6:38 PM) URINE CHEM U Preg Negative Negative 07/14 [facility] (07/13/16 6:38 PM) CHEM PANEL Lipase Lvl 110 unit/L 73 - 393 07/14 [facility] CHEM PANEL Amylase Lvl 42 unit/L 25 - 115 07/14 [facility] CHEM PANEL Lipase Lvl 107 unit/L 73 - 393 07/14 [facility] CHEM PANEL eGFR 131 07/14 Result Comment: The eGFR is calculated using the CKD-EPI formula. In most young, healthy individuals the eGFR will be >90 mL/ min/1.73m2. The eGFR declines with age. An eGFR of 60-89 may be normal in mL/min/1.7 /2017 some populations, particularly the elderly, for whom the CKD-EPI formula has not been extensively validated. Use of the eGFR is not recommended in the following populations: [facility] 3m2 Individuals with unstable creatinine concentrations, including patients and those with serious co-morbid conditions. Patients with extremes in muscle mass or diet. The data above are obtained from the National Kidney Disease Education Program (NKDEP) which additionally recommends that when the eGFR is used in patients with extremes of body mass index for purposes of drug dosing, the eGFR should be multiplied by the estimated BMI. CHEM PANEL Bili Total 0.6 mg/dL 0.2 - 1.3 07/14 [facility] CHEM PANEL Alk Phos 43 unit/L 39 - 136 07/14 [facility] CHEM PANEL AST 15 unit/L 0 - 37 07/14 [facility] CHEM PANEL ALT 22 unit/L 0 - 65 07/14 [facility] CHEM PANEL Albumin Lvl 3.6 g/dL 3.5 - 5.0 07/14 [facility] CHEM PANEL Calcium Lvl 8.4 mg/dL 8.5 - 10.5 07/14 [facility] CHEM PANEL Total 7.8 g/dL 6.4 - 8.4 07/14 [facility] CHEM PANEL CO2 25 meq/L 24 - 32 07/14 [facility] CHEM PANEL Creatinine 0.63 mg/dL 0.50 - 07/14 MH Lvl 1.40 [facility] CHEM PANEL Sodium Lvl 138 meq/L 135 - 145 07/14 [facility] CHEM PANEL Potassium 3.7 meq/L 3.5 - 5.1 07/14 Lvl [facility] CHEM PANEL Glucose Lvl 87 mg/dL 70 - 99 07/14 [facility] CHEM PANEL Chloride Lvl 103 meq/L 95 - 109 07/14 [facility] CHEM PANEL BUN 10 mg/dL 7 - 22 07/14 [facility] CHEM PANEL Globulin 4.2 g/dL 2.7 - 4.2 07/14 [facility] CHEM PANEL A/G Ratio 0.9 0.7 - 1.6 07/14 [facility] CHEM PANEL AGAP 13.7 meq/L 10.0 - 07/14 MH 20.0 [facility] CHEM PANEL B/C Ratio 16 6 - 25 07/14 [facility] HEMATOLOGY Monocytes # 0.5 K/CMM 0.0 - 0.8 07/14 [facility] HEMATOLOGY Lymphocytes 1.8 K/CMM 1.0 - 5.5 07/14 MH /2016 [facility] HEMATOLOGY Basophils # 0.1 K/CMM 0.0 - 0.2 07/14 [facility] HEMATOLOGY Segs-Bands # 12.5 K/CMM 1.5 - 8.1 07/14 /2016 [facility] HEMATOLOGY Lymphocytes 12.0 % 20.0 - 07/14 MH 40.0 /2016 [facility] HEMATOLOGY Basophils 0.4 % 0.0 - 1.0 07/14 [facility] HEMATOLOGY Segs 84.1 % 45.0 - 07/14 75.0 /2016 [facility] HEMATOLOGY Monocytes 3.5 % 2.0 - 12.0 07/14 [facility] HEMATOLOGY RDW 17.0 % 11.5 - 07/14 MH 14.5 /2016 [facility] HEMATOLOGY Platelet 212 K/CMM 133 - 450 07/14 [facility] HEMATOLOGY MPV 10.6 fL 7.4 - 10.4 07/14 [facility] HEMATOLOGY RBC 5.03 M/CMM 4.20 - 07/14 5.40 /2016 [facility] HEMATOLOGY WBC 14.9 K/CMM 3.7 - 10.4 07/14 [facility] HEMATOLOGY Hct 41.5 % 36.0 - 07/14 48.0 [facility] HEMATOLOGY Hgb 13.7 g/dL 12.0 - 07/14 16.0 [facility] HEMATOLOGY MCV 82.5 fL 80.0 - 07/14 98.0 /2016 [facility] HEMATOLOGY MCHC 33.0 g/dL 32.0 - 07/14 36.0 [facility] HEMATOLOGY MCH 27.2 pg 27.0 - 07/14 31.0 [facility] Vital Signs Vital Sign Value Date Comments Source Temperature Oral (F) 98.3 F 02/06/2017 [facility] Systolic (mm Hg) 109 02/06/2017 [facility] Diastolic (mm Hg) 58 02/06/2017 [facility] Respitory Rate 21 02/06/2017 [facility] Systolic (mm Hg) 109 02/06/2017 [facility] Diastolic (mm Hg) 89 02/06/2017 [facility] Respitory Rate 15 02/06/2017 [facility] Height 167.64 cm 02/06/2017 [facility] BMI Calculated 30.73 02/06/2017 [facility] Weight 86.364 02/06/2017 [facility] Heart Rate 81 02/06/2017 [facility] Temperature Oral (F) 97.8 F 02/06/2017 [facility] Respitory Rate 18 02/06/2017 [facility] Systolic (mm Hg) 128 02/06/2017 [facility] Diastolic (mm Hg) 80 02/06/2017 [facility] Heart Rate 75 08/22/2016 [facility] Respitory Rate 17 08/22/2016 [facility] Systolic (mm Hg) 119 08/22/2016 [facility] Diastolic (mm Hg) 72 08/22/2016 [facility] Temperature Oral (F) 97.6 F 08/22/2016 [facility] Systolic (mm Hg) 124 08/22/2016 [facility] Diastolic (mm Hg) 84 08/22/2016 [facility] Heart Rate 91 08/22/2016 [facility] Respitory Rate 18 08/22/2016 [facility] BMI Calculated 31.54 08/22/2016 [facility] Weight 88.636 08/22/2016 [facility] Height 167.64 cm 08/22/2016 [facility] Temperature Oral (F) 97.8 F 08/22/2016 [facility] Respitory Rate 16 07/14/2016 [facility] Heart Rate 71 07/14/2016 [facility] Systolic (mm Hg) 108 07/14/2016 [facility] Diastolic (mm Hg) 71 07/14/2016 [facility] Respitory Rate 16 07/14/2016 [facility] Systolic (mm Hg) 112 07/14/2016 [facility] Diastolic (mm Hg) 67 07/14/2016 [facility] Temperature Oral (F) 97.8 F 07/14/2016 [facility] Heart Rate 61 07/14/2016 [facility] BMI Calculated 31.54 07/13/2016 [facility] Height 167.64 cm 07/13/2016 [facility] Weight 88.636 07/13/2016 [facility] Respitory Rate 17 07/13/2016 [facility] Heart Rate 110 07/13/2016 [facility] Temperature Oral (F) 98.2 F 07/13/2016 [facility] Systolic (mm Hg) 126 07/13/2016 [facility] Diastolic (mm Hg) 89 07/13/2016 [facility] Encounters Location Location Encounter Encounter Reason Attending ADM DC Status Source Details Type Number For Provider Date [facility] [id number] Saw 07/13 07/14 Dagoberto Guaman /2016 [facility] [id number] Titus Fay 08/22 08/22 [facility] [id number] Mauricio Iheme 02/06 02/06 [facility] Procedures Procedure Code Date Perfomer Comments Source
--- OUTSIDE RECORDS SUMMARY | 2018-05-13 19:03 | XMS REPORT | Summary of Care ---
:2000 Author Organization [facility] Address [address] [place], [place] [address]- Encounter HQ Naty_dorita(FIN) [id number] Date(s): 02/06/17 - 02/06/17 [facility] [address] [place] [address]- Discharge Diagnosis: Seizure Discharge Disposition: Home or Self Care Attending Physician: Mauricio Wright MD Vital Signs Most recent to oldest 1 2 3 [Reference Range]: Height 167.64 cm (02/06/17 10:44 AM) Temperature Oral [96.4-99.1 98.3 DegF 97.8 DegF DegF] (02/06/17 2:10 PM) (02/06/17 10:44 AM) Blood Pressure [90-140/60-90 109/58 mmHg 109/89 mmHg 128/80 mmHg mmHg] (02/06/17 2:10 PM) (02/06/17 12:30 PM) (02/06/17 10:44 AM) Respiratory Rate [14-20 21 BRMIN 15 BRMIN 18 BRMIN BRMIN] *HI* (02/06/17 12:30 PM) (02/06/17 10:44 AM) (02/06/17 2:10 PM) Peripheral Pulse Rate 81 bpm [60-100 bpm] (02/06/17 10:44 AM) Weight 86.364 kg (02/06/17 10:44 AM) Body Mass Index 30.73 m2 (02/06/17 10:44 AM) Problem List No data available for this section Allergies, Adverse Reactions, Alerts Substance Reaction Severity Status NKDA Active Medications Saline Flush 0.9% 10 mL, Route: IVP, Drug Form: INJ, Dosing Weight 86.364, kg, PRN, PRN Line Flush , Start date: 02/06/17 11:19:00 CDT, Duration: 30 day, Stop date: 03/08/17 11:18 :00 CDT Notes: (Same as: BD Posiflush) Start Date: 02/06/17 Stop Date: 02/06/17 Status: DiscontinuedSodium Chloride 0.9% (Bolus) IV 1,000 mL, 1,000 ml/hr, Infuse Over: 1 hr, Route: IV, 1,000, Drug form: INJ, ONCE , Priority: STAT, Dosing Weight 86.364 kg, Start date: 02/06/17 11:19:00 CDT, Duration: 1 doses or times, Stop date: 02/06/17 11:19:00 CDT Start Date: 02/06/17 Stop Date: 02/06/17 Status: Completed Results ELECTROLYTES Most recent to oldest [Reference Range]: 1 Sodium Lvl [135-145 mEq/L] 137 mEq/L (02/06/17 11:37 AM) Potassium Lvl [3.5-5.1 mEq/L] 3.7 mEq/L (02/06/17 11:37 AM) Chloride Lvl [95-109 mEq/L] 105 mEq/L (02/06/17 11:37 AM) CO2 [24-32 mEq/L] 25 mEq/L (02/06/17 11:37 AM) AGAP [10.0-20.0 mEq/L] 10.7 mEq/L (02/06/17 11:37 AM) CHEM PANEL Most recent to oldest [Reference Range]: 1 Creatinine Lvl [0.50-1.40 mg/dL] 0.58 mg/dL (02/06/17 11:37 AM) eGFR 134 mL/min/1.73m2 1 *NA* (02/06/17 11:37 AM) BUN [7-22 mg/dL] 13 mg/dL (02/06/17 11:37 AM) B/C Ratio [6-25] 22 (02/06/17 11:37 AM) Glucose Lvl [70-99 mg/dL] 88 mg/dL (02/06/17 11:37 AM) Total Protein [6.4-8.4 g/dL] 7.5 g/dL (02/06/17 11:37 AM) Albumin Lvl [3.5-5.0 g/dL] 3.3 g/dL *LOW* (02/06/17 11:37 AM) Globulin [2.7-4.2 g/dL] 4.2 g/dL (02/06/17 11:37 AM) A/G Ratio [0.7-1.6] 0.8 (02/06/17 11:37 AM) Calcium Lvl [8.5-10.5 mg/dL] 8.3 mg/dL *LOW* (02/06/17 11:37 AM) ALT [0-65 unit/L] 22 unit/L (02/06/17 11:37 AM) AST [0-37 unit/L] 13 unit/L (02/06/17 11:37 AM) Alk Phos [39-136 unit/L] 48 unit/L (02/06/17 11:37 AM) Bili Total [0.2-1.3 mg/dL] 0.3 mg/dL (02/06/17 11:37 AM) 1Result Comment: The eGFR is calculated using [...] eGFR should be multiplied by the estimated BMI.DRUG SCREEN Most recent to oldest [Reference Range]: 1 U Amph Scr [Negative] Negative *NA* (02/06/17 11:37 AM) U Kelly Scr [Negative] Negative *NA* (02/06/17 11:37 AM) U Benzodia Scr [Negative] Negative *NA* (02/06/17 11:37 AM) U Cocaine Scr [Negative] Negative *NA* (02/06/17 11:37 AM) U Opiate Scr [Negative] Negative *NA* (02/06/17 11:37 AM) U Phencyc Scr [Negative] Negative *NA* (02/06/17 11:37 AM) U Cannab Scr [Negative] Positive *ABN* (02/06/17 11:37 AM) UDS Note See Note (02/06/17 11:37 AM) ENDOCRINOLOGY Most recent to oldest [Reference Range]: 1 S Preg [Negative] Negative *NA* (02/06/17 11:37 AM) URINE AND STOOL Most recent to oldest [Reference Range]: 1 UA Turbidity [Clear] Marked *ABN* (02/06/17 11:37 AM) UA Color Gwen *NA* (02/06/17 11:37 AM) UA pH [5.0-8.0] 5.0 (02/06/17 11:37 AM) UA Spec Grav [<=1.030] 1.030 (02/06/17 11:37 AM) UA Glucose [Negative mg/dL] Negative mg/dL *NA* (02/06/17 11:37 AM) UA Blood [Negative] Negative (02/06/17 11:37 AM) UA Ketones [Negative mg/dL] Negative mg/dL *NA* (02/06/17 11:37 AM) UA Protein [Negative mg/dL] Negative mg/dL (02/06/17 11:37 AM) UA Urobilinogen [0.1-1.0 mg/dL] <=1.0 mg/dL *NA* (02/06/17 11:37 AM) UA Bili [Negative] Negative *NA* (02/06/17 11:37 AM) UA Leuk Est [Negative] Large *ABN* (02/06/17 11:37 AM) UA Nitrite [Negative] Negative (02/06/17 11:37 AM) UA WBC [0-5 /HPF] 5 /HPF (02/06/17 11:37 AM) UA Bacteria [None Seen /HPF] Occasional /HPF *NA* (02/06/17 11:37 AM) UA Sq Epi [Few /LPF] Many /LPF *ABN* (02/06/17 11:37 AM) UA Mucus [None Seen /LPF] Few /LPF *NA* (02/06/17 11:37 AM) HEMATOLOGY Most recent to oldest [Reference Range]: 1 WBC [3.7-10.4 K/CMM] 11.0 K/CMM *HI* (02/06/17 11:37 AM) RBC [4.20-5.40 M/CMM] 4.85 M/CMM (02/06/17 11:37 AM) Hgb [12.0-16.0 g/dL] 12.5 g/dL (02/06/17 11:37 AM) Hct [36.0-48.0 %] 38.7 % (02/06/17 11:37 AM) MCV [80.0-98.0 fL] 79.7 fL *LOW* (02/06/17 11:37 AM) MCH [27.0-31.0 pg] 25.8 pg *LOW* (02/06/17 11:37 AM) MCHC [32.0-36.0 g/dL] 32.4 g/dL (02/06/17 11:37 AM) RDW [11.5-14.5 %] 16.3 % *HI* (02/06/17 11:37 AM) Platelet [133-450 K/CMM] 228 K/CMM (02/06/17 11:37 AM) MPV [7.4-10.4 fL] 11.5 fL *HI* (02/06/17 11:37 AM) Segs [45.0-75.0 %] 65.5 % (02/06/17 11:37 AM) Lymphocytes [20.0-40.0 %] 26.2 % (02/06/17 11:37 AM) Monocytes [2.0-12.0 %] 5.9 % (02/06/17 11:37 AM) Eosinophils [0.0-4.0 %] 1.5 % (02/06/17 11:37 AM) Basophils [0.0-1.0 %] 0.9 % (02/06/17 11:37 AM) Segs-Bands # [1.5-8.1 K/CMM] 7.2 K/CMM (02/06/17 11:37 AM) Lymphocytes # [1.0-5.5 K/CMM] 2.9 K/CMM (02/06/17 11:37 AM) Monocytes # [0.0-0.8 K/CMM] 0.7 K/CMM (02/06/17 11:37 AM) Eosinophils # [0.0-0.5 K/CMM] 0.2 K/CMM (02/06/17 11:37 AM) Basophils # [0.0-0.2 K/CMM] 0.1 K/CMM (02/06/17 11:37 AM) PT [12.0-14.7 seconds] 12.7 seconds (02/06/17 11:37 AM) INR [0.85-1.17] 0.93 (02/06/17 11:37 AM) PTT [22.9-35.8 seconds] 27.7 seconds (02/06/17 11:37 AM) Immunizations No data available for this section Procedures No data available for this section Social History Social History Type Response Substance Abuse Use: Current. Type: Marijuana. Alcohol Current Smoking Status Former smoker; Exposure to Tobacco Smoke None; Cigarette Smoking Last 365 Days No; Reg Smoking Cessation Counseling No Assessment and Plan No data available for this section
--- OUTSIDE RECORDS SUMMARY | 2018-05-13 19:03 | XMS REPORT | Summary of Care ---
:2000 Author Organization [facility] Address [address] [place], [place] [address]- Encounter HQ Xander(FIN) [id number] Date(s): 08/22/16 - 08/22/16 [facility] [address] [place] [address]- Discharge Diagnosis: Orthostasis Discharge Diagnosis: Headache Discharge Disposition: Home or Self Care Attending Physician: Titus Fay MD Vital Signs Most recent to oldest [Reference Range]: 1 2 Height 167.64 cm (08/22/16 9:58 AM) Temperature Oral [96.4-99.1 DegF] 97.6 DegF 97.8 DegF (08/22/16 1:06 PM) (08/22/16 9:58 AM) Blood Pressure [90-140/60-90 mmHg] 119/72 mmHg 124/84 mmHg (08/22/16 1:06 PM) (08/22/16 9:58 AM) Respiratory Rate [14-20 BRMIN] 17 BRMIN 18 BRMIN (08/22/16 1:06 PM) (08/22/16 9:58 AM) Peripheral Pulse Rate [60-100 bpm] 75 bpm 91 bpm (08/22/16 1:06 PM) (08/22/16 9:58 AM) Weight 88.636 kg (08/22/16 9:58 AM) Body Mass Index 31.54 m2 (08/22/16 9:58 AM) Problem List No data available for this section Allergies, Adverse Reactions, Alerts Substance Reaction Severity Status NKDA Active Medications ibuprofen 800 mg oral tablet 800 mg=1 tab, PO, Q8H, PRN Pain, Take with food, # 30 tab, 0 Refill(s) Start Date: 08/22/16 Stop Date: 08/24/16 Status: CompletedNS (Bolus) IV 1,000 mL, Infuse Over: 0.5 hr, Route: IV, Drug form: INJ, ONCE, Priority: STAT, Dosing Weight 88.636kg, Start date: 08/22/16 11:35:00 CDT, Stop date: 08/22/16 11:35:00 CDT Start Date: 08/22/16 Stop Date: 08/22/16 Status: Discontinued Results ELECTROLYTES Most recent to oldest [Reference Range]: 1 Sodium Lvl [135-145 mEq/L] 140 mEq/L (08/22/16 10:38 AM) Potassium Lvl [3.5-5.1 mEq/L] 4.0 mEq/L (08/22/16 10:38 AM) Chloride Lvl [95-109 mEq/L] 107 mEq/L (08/22/16 10:38 AM) CO2 [24-32 mEq/L] 26 mEq/L (08/22/16 10:38 AM) AGAP [10.0-20.0 mEq/L] 11.0 mEq/L (08/22/16 10:38 AM) CHEM PANEL Most recent to oldest [Reference Range]: 1 Creatinine Lvl [0.50-1.40 mg/dL] 0.67 mg/dL (08/22/16 10:38 AM) eGFR 129 mL/min/1.73m2 1 *NA* (08/22/16 10:38 AM) BUN [7-22 mg/dL] 10 mg/dL (08/22/16 10:38 AM) Glucose Lvl [70-99 mg/dL] 93 mg/dL (08/22/16 10:38 AM) Calcium Lvl [8.5-10.5 mg/dL] 9.1 mg/dL (08/22/16 10:38 AM) 1Result Comment: The eGFR is calculated [...] recent to oldest [Reference Range]: 1 U Preg [Negative] Negative (08/22/16 10:38 AM) URINE AND STOOL Most recent to oldest [Reference Range]: 1 UA Turbidity [Clear] Slight *ABN* (08/22/16 10:38 AM) UA Color Red *NA* (08/22/16 10:38 AM) UA pH [5.0-8.0] 6.0 (08/22/16 10:38 AM) UA Spec Grav [<=1.030] 1.025 (08/22/16 10:38 AM) UA Glucose [Negative mg/dL] Negative mg/dL *NA* (08/22/16 10:38 AM) UA Blood [Negative] Large *ABN* (08/22/16 10:38 AM) UA Ketones [Negative mg/dL] Negative mg/dL *NA* (08/22/16 10:38 AM) UA Protein [Negative mg/dL] 100 mg/dL *ABN* (08/22/16 10:38 AM) UA Urobilinogen [0.1-1.0 mg/dL] <=1.0 mg/dL *NA* (08/22/16 10:38 AM) UA Bili [Negative] Negative *NA* (08/22/16 10:38 AM) UA Leuk Est [Negative] Negative (08/22/16 10:38 AM) UA Nitrite [Negative] Negative (08/22/16 10:38 AM) UA WBC [0-5 /HPF] 1 /HPF (08/22/16 10:38 AM) UA RBC [0-2 /HPF] >182 /HPF *HI* (08/22/16 10:38 AM) UA Bacteria [None Seen /HPF] Occasional /HPF *NA* (08/22/16 10:38 AM) UA Sq Epi [Few /LPF] Many /LPF *ABN* (08/22/16 10:38 AM) UA Mucus [None Seen /LPF] Few /LPF *NA* (08/22/16 10:38 AM) HEMATOLOGY Most recent to oldest [Reference Range]: 1 WBC [3.7-10.4 K/CMM] 6.9 K/CMM (08/22/16 10:38 AM) RBC [4.20-5.40 M/CMM] 5.02 M/CMM (08/22/16 10:38 AM) Hgb [12.0-16.0 g/dL] 14.0 g/dL (08/22/16 10:38 AM) Hct [36.0-48.0 %] 41.9 % (08/22/16 10:38 AM) MCV [80.0-98.0 fL] 83.5 fL (08/22/16 10:38 AM) MCH [27.0-31.0 pg] 27.8 pg (08/22/16 10:38 AM) MCHC [32.0-36.0 g/dL] 33.4 g/dL (08/22/16 10:38 AM) RDW [11.5-14.5 %] 15.2 % *HI* (08/22/16 10:38 AM) Platelet [133-450 K/CMM] 196 K/CMM (08/22/16 10:38 AM) MPV [7.4-10.4 fL] 10.8 fL *HI* (08/22/16 10:38 AM) Segs [45.0-75.0 %] 59.3 % (08/22/16 10:38 AM) Lymphocytes [20.0-40.0 %] 32.1 % (08/22/16 10:38 AM) Monocytes [2.0-12.0 %] 6.1 % (08/22/16 10:38 AM) Eosinophils [0.0-4.0 %] 1.9 % (08/22/16 10:38 AM) Basophils [0.0-1.0 %] 0.6 % (08/22/16 10:38 AM) Segs-Bands # [1.5-8.1 K/CMM] 4.1 K/CMM (08/22/16 10:38 AM) Lymphocytes # [1.0-5.5 K/CMM] 2.2 K/CMM (08/22/16 10:38 AM) Monocytes # [0.0-0.8 K/CMM] 0.4 K/CMM (08/22/16 10:38 AM) Eosinophils # [0.0-0.5 K/CMM] 0.1 K/CMM (08/22/16 10:38 AM) Immunizations No data available for this section Procedures No data available for this section Social History Social History Type Response Smoking Status Former smoker; Exposure to Tobacco Smoke None; Cigarette Smoking Last 365 Days No; Reg Smoking Cessation Counseling No Assessment and Plan No data available for this section
== END 2018-05-13 15:34 | disposition home or self-care (01) ==
LOC: ER 14:16
DX: J40 Bronchitis, not specified as acute or chronic (principal); H66.93 Otitis media, unspecified, bilateral; Z72.0 Tobacco use
CPT/HCPCS: 87070; 87081; 99284; J7512

== ENCOUNTER 2018-08-21 20:04 | Emergency (ER) | payer SELFPAY ==
--- OUTSIDE RECORDS SUMMARY | 2018-08-21 20:08 | XMS REPORT | Continuity of Care Document ---
:2000 Author Organization Interface Problems Problem Status Onset Classification Date Comments Source Date Reported Discharge 02/09/2017 [facility] Diagnosis: 7 Seizure SEIZURE Active [facility] 7 Discharge 08/25/2016 [facility] Diagnosis: 7 Orthostasis Discharge 08/25/2016 [facility] Diagnosis: 7 Headache DRVitaliy SENT-HEAD Active [facility] PAIN 7 Discharge 07/16/2016 [facility] Diagnosis: 7 Nausea vomiting and diarrhea Discharge 07/16/2016 [facility] Diagnosis: 7 Abdominal pain, acute ABD PAIN/ Active [facility] VOMITTING 7 Medications Medication Details Route Status Patient Ordering Order Source Instructions Provider Date Sodium Chloride 1,000 mL, Inactive 0.9% (Bolus) IV 1,000 ml/hr, 2016 [facility] Infuse Over: 1 hr, Route: IV, 1,000, Drug form: INJ, ONCE, Priority: STAT, Dosing Weight 86.364 kg, Start date: 02/06/17 11:19:00 CDT, Duration: 1 doses or times, Stop date: 02/06/17 11:19:00 CDT Saline Flush 10 mL, Route: Inactive 0.9% IVP, Drug 2016 [facility] Form: INJ, Dosing Weight 86.364, kg, PRN, PRN Line Flush, Start date: 02/06/17 11:19:00 CDT, Duration: 30 day, Stop date: 03/08/17 11:18:00 CDTNotes: (Same as: BD Posiflush) ibuprofen 800 mg 800 mg=1 tab, No Longer oral tablet PO, Q8H, PRN Active 2016 [facility] Pain, Take with food, # 30 tab, 0 Refill(s) Sodium Chloride 1,000 mL, Inactive 0.154 MEQ/ML Infuse Over: 2016 [facility] Injectable 0.5 hr, Solution Route: IV, Drug form: INJ, ONCE, Priority: STAT, Dosing Weight 88.636 kg, Start date: 08/22/16 11:35:00 CDT, Stop date: 08/22/16 11:35:00 CDT Ondansetron 4 MG 4 mg=1 tab, Active Disintegrating PO, TID, PRN 2016 [facility] Tablet Nausea / Vomiting, Dissolve tab under tongue, X 3 day, # 10 tab, 0 Refill(s) Famotidine 20 mg, 2 mL, Inactive Route: IVP, 2016 [facility] Drug form: INJ, ONCE, Dosing Weight 88.636, kg, Priority: STAT, Start date: 07/13/16 17:48:00 DYE WINCH OPERATOR, Stop date: 07/13/16 17:48:00 CSTNotes: (Same as: Pepcid) Can be dilute in 5-10cc NS IVP: Slow IV push over at least 2 minutes. GI cocktail 30 mL, Route: Inactive PO, Drug 2016 [facility] Form: SUSP, Dosing Weight 88.636, kg, ONCE, STAT, Start date: 07/13/16 17:48:00 DYE WINCH OPERATOR, Stop date: 07/13/16 17:48:00 CSTNotes: G.I. Cocktail=anta jeannette with simethicone 22.5 mL - lidocaine viscous 7.5 mL Ondansetron 4 mg, 2 mL, Inactive Route: IVP2016 [facility] Drug form: INJ, ONCE, Dosing Weight 88.636, kg, Priority: STAT, Start date: 07/13/16 17:48:00 DYE WINCH OPERATOR, Stop date: 07/13/16 17:48:00 CSTNotes: (Same as: Zofran) MEDICATION WASTE Product Size: 4 mg Product Wasted: ___ mg Sodium Chloride 1,000 mL, Inactive 0.154 MEQ/ML 1000 ml/hr, 2016 [facility] Injectable Infuse Over: Solution 1 hr, Route: IV, 1,000, Drug form: INJ, ONCE, Priority: STAT, Dosing Weight 88.636 kg, Start date: 07/13/16 17:47:00 DYE WINCH OPERATOR, Duration: 1 doses or times, Stop date: 07/13/16 17:47:00 DYE WINCH OPERATOR Allergies, Adverse Reactions, Alerts Substance Category Reaction [...] is not recommended in the following populations: [address] Individuals with unstable creatinine concentrations, including [...] AST 13 unit/L 0 - 37 02/06 [facility] CHEM PANEL Alk Phos 48 unit/L [...] Lvl 88 mg/dL 70 - 99 02/06 [facility] CHEM PANEL B/C Ratio 22 6 - 25 02/06 [facility] CHEM PANEL Globulin 4.2 g/dL 2.7 - 4.2 02/06 [facility] CHEM PANEL AGAP 10.7 meq/L 10.0 - 02/06 20.0 /2016 [facility] CHEM PANEL A/G Ratio 0.8 0.7 - 1.6 02/06 [facility] DRUG U Kelly Scr Negative Negative 02/06 SCREEN [facility] *NA* (02/06/17 11:37 AM) DRUG U Benzodia Negative Negative 02/06 SCREEN Scr [facility] *NA* (02/06/17 11:37 AM) DRUG U Cocaine Negative Negative 02/06 SCREEN Scr [facility] *NA* (02/06/17 11:37 AM) DRUG U Cannab Scr Positive Negative 02/06 SCREEN [facility] *ABN* (02/06/17 11:37 AM) DRUG U Opiate Scr Negative Negative 02/06 [facility] *NA* (02/06/17 11:37 AM) DRUG U Phencyc Negative Negative 02/06 SCREEN Scr [facility] *NA* (02/06/17 11:37 AM) DRUG UDS Note See Note 02/06 [facility] (02/06/17 11:37 AM) DRUG U Amph Scr Negative Negative 02/06 SCREEN [facility] *NA* (02/06/17 11:37 AM) ENDOCRINOL S Preg Negative Negative 02/06 OGY [facility] *NA* (02/06/17 11:37 AM) HEMATOLOGY Eosinophils 0.2 K/CMM 0.0 - 0.5 02/06 MH # /2016 [facility] HEMATOLOGY Monocytes # 0.7 K/CMM 0.0 - 0.8 02/06 [facility] HEMATOLOGY Basophils # 0.1 K/CMM 0.0 - 0.2 02/06 [facility] HEMATOLOGY Lymphocytes 2.9 K/CMM 1.0 - 5.5 02/06 MH # /2016 [facility] HEMATOLOGY Segs-Bands # 7.2 K/CMM 1.5 - 8.1 02/06 [facility] HEMATOLOGY Monocytes 5.9 % 2.0 - 12.0 02/06 [facility] HEMATOLOGY Lymphocytes 26.2 % 20.0 - 02/06 MH 40.0 /2017 [facility] HEMATOLOGY Basophils 0.9 % 0.0 - 1.0 02/06 [facility] HEMATOLOGY Eosinophils 1.5 % 0.0 - 4.0 02/06 [facility] HEMATOLOGY Segs 65.5 % 45.0 - 02/06 MH 75.0 /2016 [facility] HEMATOLOGY INR 0.93 0.85 - 02/06 MH 1.17 /2016 [facility] HEMATOLOGY PT 12.7 s 12.0 - 02/06 MH 14.7 [facility] HEMATOLOGY RBC 4.85 M/CMM 4.20 - 02/06 MH 5.40 /2016 [facility] HEMATOLOGY Hgb 12.5 g/dL 12.0 - 02/06 MH 16.0 [facility] HEMATOLOGY RDW 16.3 % 11.5 - 02/06 MH 14.5 [facility] HEMATOLOGY MCHC 32.4 g/dL 32.0 - 02/06 MH 36.0 /2016 [facility] HEMATOLOGY MPV 11.5 fL 7.4 - 10.4 02/06 [facility] HEMATOLOGY Platelet 228 K/CMM 133 - 450 02/06 [facility] HEMATOLOGY MCV 79.7 fL 80.0 - 02/06 MH 98.0 /2016 [facility] HEMATOLOGY Hct 38.7 % 36.0 - 02/06 MH 48.0 /2016 [facility] HEMATOLOGY MCH 25.8 pg 27.0 - 02/06 31.0 /2016 [facility] HEMATOLOGY WBC 11.0 K/CMM 3.7 - 10.4 02/06 [facility] HEMATOLOGY PTT 27.7 s 22.9 - 02/06 MH 35.8 /2016 [facility] URINE AND UA Color Gwen 02/06 STOOL [facility] URINE AND UA <=1.0 0.1 - 1.0 02/06 STOOL Urobilinogen mg/dL /2016 [facility] URINE AND UA Spec Grav 1.030 <=1.030 02/06 STOOL [facility] URINE AND UA Nitrite Negative Negative 02/06 STOOL [facility] (02/06/17 11:37 AM) URINE AND UA Leuk Est Large Negative 02/06 STOOL [facility] *ABN* (02/06/17 11:37 AM) URINE AND UA Sq Epi Many /LPF Few /LPF 02/06 STOOL [facility] URINE AND UA WBC 5 /HPF 0 - 5 02/06 STOOL [facility] URINE AND UA Bacteria Occasional None Seen 02/06 STOOL /HPF /HPF [facility] URINE AND UA Mucus Few /LPF None Seen 02/06 STOOL /LPF /2016 [facility] URINE AND UA Glucose Negative Negative 02/06 STOOL mg/dL mg/dL [facility] URINE AND UA Turbidity Marked Clear 02/06 [facility] *ABN* (02/06/17 11:37 AM) URINE AND UA Protein Negative Negative 02/06 STOOL mg/dL mg/dL [facility] URINE AND UA pH 5.0 5.0 - 8.0 02/06 [facility] URINE AND UA Ketones Negative Negative 02/06 STOOL mg/dL mg/dL [facility] URINE AND UA Blood Negative Negative 02/06 [facility] (02/06/17 11:37 AM) URINE AND UA Bili Negative Negative 02/06 [facility] *NA* (02/06/17 11:37 AM) Brain wo [...] BUN 10 mg/dL 7 - 22 08/22 [facility] CHEM PANEL Glucose Lvl 93 mg/dL 70 - 99 08/22 [facility] CHEM PANEL Potassium 4.0 meq/L 3.5 - 5.1 08/22 MH Lvl /2016 [facility] CHEM PANEL Chloride Lvl 107 meq/L 95 - 109 08/22 [facility] CHEM PANEL Calcium Lvl 9.1 mg/dL 8.5 - 10.5 08/22 [facility] CHEM PANEL Sodium Lvl 140 meq/L 135 - 145 08/22 [facility] CHEM PANEL Creatinine 0.67 mg/dL 0.50 - 08/22 MH Lvl 1.40 [facility] CHEM PANEL CO2 26 meq/L 24 - 32 08/22 [facility] CHEM PANEL eGFR 129 08/22 Result [...] is not recommended in the following populations: [address] Individuals with unstable creatinine concentrations, including [...] 11.0 meq/L 10.0 - 08/22 MH 20.0 [facility] HEMATOLOGY MPV 10.8 fL 7.4 - 10.4 08/22 [facility] HEMATOLOGY Platelet 196 K/CMM 133 - 450 08/22 [facility] HEMATOLOGY RDW 15.2 % 11.5 - 08/22 MH 14.5 [facility] HEMATOLOGY MCHC 33.4 g/dL 32.0 - 08/22 MH 36.0 [facility] HEMATOLOGY MCH 27.8 pg 27.0 - 08/22 31.0 [facility] HEMATOLOGY MCV 83.5 fL 80.0 - 08/22 MH 98.0 [facility] HEMATOLOGY Hgb 14.0 g/dL 12.0 - 08/22 MH 16.0 [facility] HEMATOLOGY Hct 41.9 % 36.0 - 08/22 MH 48.0 [facility] HEMATOLOGY RBC 5.02 M/CMM 4.20 - 04 MH 5.40 /2017 [facility] HEMATOLOGY WBC 6.9 K/CMM 3.7 - 10.4 08/22 /2016 [facility] HEMATOLOGY Segs 59.3 % 45.0 - 04 MH 75.0 /2016 [facility] HEMATOLOGY Monocytes # 0.4 K/CMM 0.0 - 0.8 08/22 [facility] HEMATOLOGY Eosinophils 0.1 K/CMM 0.0 - 0.5 08/22 MH # /2016 [facility] HEMATOLOGY Basophils 0.6 % 0.0 - 1.0 08/22 [facility] HEMATOLOGY Segs-Bands # 4.1 K/CMM 1.5 - 8.1 08/22 [facility] HEMATOLOGY Lymphocytes 32.1 % 20.0 - 08/22 MH 40.0 /2016 [facility] HEMATOLOGY Monocytes 6.1 % 2.0 - 12.0 08/22 [facility] HEMATOLOGY Lymphocytes 2.2 K/CMM 1.0 - 5.5 08/22 # /2016 [facility] HEMATOLOGY Eosinophils 1.9 % 0.0 - 4.0 08/22 [facility] URINE AND UA Protein 100 mg/dL Negative 08/22 STOOL mg/dL /2016 [facility] URINE AND UA Glucose Negative Negative 08/22 STOOL mg/dL mg/dL [facility] URINE AND UA Ketones Negative Negative 08/22 STOOL mg/dL mg/dL /2016 [facility] URINE AND UA Bili Negative Negative 08/22 STOOL [facility] *NA* (08/22/16 10:38 AM) URINE AND UA Leuk Est Negative Negative 08/22 STOOL [facility] (08/22/16 10:38 AM) URINE AND UA RBC null 0 - 2 08/22 STOOL [facility] URINE AND UA Sq Epi Many [...] 0.1 - 1.0 08/22 STOOL Urobilinogen mg/dL [facility] URINE AND UA pH 6.0 5.0 [...] may be performed for complete assessment. SL: [id number] URINE AND UA <=1.0 0.1 - 1.0 07/14 STOOL Urobilinogen mg/dL /2016 URINE AND UA RBC 2 /HPF 0 - 2 07/14 URINE AND UA Renal Epi 7 /LPF <=0 /LPF 07/14 [facility] URINE AND UA Mucus Few /LPF None Seen 07/14 STOOL /LPF [facility] URINE AND UA Sq Epi Many /LPF Few /LPF 07/14 [facility] URINE AND UA Leuk Est Small Negative 07/14 [facility] *ABN* (07/13/16 6:38 PM) URINE AND UA WBC 7 /HPF 0 - 5 07/14 [facility] URINE AND UA Nitrite Negative Negative 07/14 [facility] (07/13/16 6:38 PM) URINE AND UA Blood Negative Negative 07/14 [facility] (07/13/16 6:38 PM) URINE AND UA Glucose Negative Negative 07/14 STOOL mg/dL mg/dL URINE AND UA Bili Negative Negative 07/14 [facility] *NA* (07/13/16 6:38 PM) URINE AND UA Ketones Trace Negative 07/14 STOOL mg/dL mg/dL [facility] URINE AND UA Protein Negative Negative 07/14 STOOL mg/dL mg/dL [facility] URINE AND UA pH 6.0 5.0 - 8.0 07/14 [facility] URINE AND UA Spec Grav 1.027 <=1.030 07/14 [facility] URINE AND UA Turbidity Marked Clear 07/14 [facility] *ABN* (07/13/16 6:38 PM) URINE AND UA Color Yellow Yellow 07/14 [facility] *NA* (07/13/16 6:38 PM) URINE CHEM U Preg Negative Negative 07/14 [facility] (07/13/16 6:38 PM) CHEM PANEL Lipase Lvl 110 unit/L 73 - 393 07/14 [facility] CHEM PANEL Amylase Lvl 42 unit/L 25 - 115 07/14 [facility] CHEM PANEL Lipase Lvl 107 unit/L 73 - 393 07/14 [facility] CHEM PANEL eGFR 131 07/14 Result [...] is not recommended in the following populations: [facility] 3m2 Individuals with unstable creatinine concentrations, [...] 13.7 meq/L 10.0 - 07/14 MH 20.0 [facility] CHEM PANEL B/C Ratio 16 6 - 25 07/14 [facility] HEMATOLOGY Monocytes # 0.5 K/CMM 0.0 - 0.8 07/14 [facility] HEMATOLOGY Lymphocytes 1.8 K/CMM 1.0 - 5.5 07/14 MH /2016 [facility] HEMATOLOGY Basophils # 0.1 K/CMM 0.0 - 0.2 07/14 [facility] HEMATOLOGY Segs-Bands # 12.5 K/CMM 1.5 - 8.1 07/14 /2016 [facility] HEMATOLOGY Lymphocytes 12.0 % 20.0 - 07/14 MH 40.0 /2016 [facility] HEMATOLOGY Basophils 0.4 % 0.0 - 1.0 07/14 [facility] HEMATOLOGY Segs 84.1 % 45.0 - 07/14 75.0 /2016 [facility] HEMATOLOGY Monocytes 3.5 % 2.0 - 12.0 07/14 [facility] HEMATOLOGY RDW 17.0 % 11.5 - 07/14 MH 14.5 /2016 [facility] HEMATOLOGY Platelet 212 K/CMM 133 - 450 07/14 [facility] HEMATOLOGY MPV 10.6 fL 7.4 - 10.4 07/14 [facility] HEMATOLOGY RBC 5.03 M/CMM 4.20 - 07/14 5.40 /2016 [facility] HEMATOLOGY WBC 14.9 K/CMM 3.7 - 10.4 07/14 [facility] HEMATOLOGY Hct 41.5 % 36.0 - 07/14 48.0 [facility] HEMATOLOGY Hgb 13.7 g/dL 12.0 - 07/14 16.0 [facility] HEMATOLOGY MCV 82.5 fL 80.0 - 07/14 98.0 /2016 [facility] HEMATOLOGY MCHC 33.0 g/dL 32.0 - 07/14 36.0 [facility] HEMATOLOGY MCH 27.2 pg 27.0 - 07/14 31.0 [facility] Vital Signs Vital Sign Value Date Comments Source Temperature Oral (F) 98.3 F 02/06/2017 [facility] Systolic (mm Hg) 109 02/06/2017 [facility] Diastolic (mm Hg) 58 02/06/2017 [facility] Respitory Rate 21 02/06/2017 [facility] Systolic (mm Hg) 109 02/06/2017 [facility] Diastolic (mm Hg) 89 02/06/2017 [facility] Respitory Rate 15 02/06/2017 [facility] Height 167.64 cm 02/06/2017 [facility] BMI Calculated 30.73 02/06/2017 [facility] Weight 86.364 02/06/2017 [facility] Heart Rate 81 02/06/2017 [facility] Temperature Oral (F) 97.8 F 02/06/2017 [facility] Respitory Rate 18 02/06/2017 [facility] Systolic (mm Hg) 128 02/06/2017 [facility] Diastolic (mm Hg) 80 02/06/2017 [facility] Heart Rate 75 08/22/2016 [facility] Respitory Rate 17 08/22/2016 [facility] Systolic (mm Hg) 119 08/22/2016 [facility] Diastolic (mm Hg) 72 08/22/2016 [facility] Temperature Oral (F) 97.6 F 08/22/2016 [facility] Systolic (mm Hg) 124 08/22/2016 [facility] Diastolic (mm Hg) 84 08/22/2016 [facility] Heart Rate 91 08/22/2016 [facility] Respitory Rate 18 08/22/2016 [facility] BMI Calculated 31.54 08/22/2016 [facility] Weight 88.636 08/22/2016 [facility] Height 167.64 cm 08/22/2016 [facility] Temperature Oral (F) 97.8 F 08/22/2016 [facility] Respitory Rate 16 07/14/2016 [facility] Heart Rate 71 07/14/2016 [facility] Systolic (mm Hg) 108 07/14/2016 [facility] Diastolic (mm Hg) 71 07/14/2016 [facility] Respitory Rate 16 07/14/2016 [facility] Systolic (mm Hg) 112 07/14/2016 [facility] Diastolic (mm Hg) 67 07/14/2016 [facility] Temperature Oral (F) 97.8 F 07/14/2016 [facility] Heart Rate 61 07/14/2016 [facility] BMI Calculated 31.54 07/13/2016 [facility] Height 167.64 cm 07/13/2016 [facility] Weight 88.636 07/13/2016 [facility] Respitory Rate 17 07/13/2016 [facility] Heart Rate 110 07/13/2016 [facility] Temperature Oral (F) 98.2 F 07/13/2016 [facility] Systolic (mm Hg) 126 07/13/2016 [facility] Diastolic (mm Hg) 89 07/13/2016 [facility] Encounters Location Location Encounter Encounter Reason Attending ADM DC Status Source Details Type Number For Provider Date Date [facility] [id number] Saw 07/13 07/14 Dagoberto Guaman /2016 [facility] Emergency [id number] Titus Fay 08/22 08/22 [facility] [id number] Mauricio Iheme 02/06 02/06 [facility] Procedures Procedure Code Date Perfomer Comments Source
--- OUTSIDE RECORDS SUMMARY | 2018-08-21 20:08 | XMS REPORT ---
:2000 Author Organization [facility] Address [address] [place] [id number] Care Team Providers Name Role Phone Unavailable Unavailable Unavailable Problems This patient has no known problems. Allergies, Adverse Reactions, Alerts This patient has no known allergies or adverse reactions. Medications This patient has no known medications.
[2018-08-21 20:28] LABS: Urine Blood NEGATIVE (NEG); Urine Glucose NEGATIVE (NEG); Urine Protein 1+ (NEG); Urine Specific Gravity >1.030 (1.005-1.030)
[2018-08-21 20:37] LABS: Absolute Lymphocytes (CBC) 1.2 K/uL (0.7-4.9); Absolute Monocytes 0.5 K/uL (0.1-1.3); Absolute Neutrophil 15.2 K/uL (1.8-8.0); Basophils % 0.5 % (0-1.3); Hematocrit 40.8 % (36.0-45.0); MPV 10.5 fL (7.6-11.3); Monocytes % 2.8 % (3.3-12.3); RBC Red Blood Cell Count 5.24 M/uL (3.86-4.86)
[2018-08-21] MEDS ORDERED: NA CHLORIDE 0.9% 1,000 ML ONE (20:38)
[2018-08-21] MEDS ORDERED: ONDANSETRON 4 MG/2 ML VIAL ONE ×2 (20:38→23:28)
[2018-08-21 20:52] LABS: Protime INR 1.2
[2018-08-21 20:55] LABS: ALT/SGPT 20 U/L (12-78); AST/SGOT 15 U/L (15-37); Albumin 4.3 g/dL (3.4-5.0); Alkaline Phosphatase 52 U/L (45-117); BUN Blood Urea Nitrogen 14 mg/dL (7-18); Bicarbonate 19 mmol/L (21-32); Bilirubin Direct 0.4 mg/dL (0-0.2); Bilirubin Total 1.3 mg/dL (0.2-1.0); Glucose Level 58 mg/dL (74-106); Potassium 3.8 mmol/L (3.5-5.1); Protein, Total 8.2 g/dL (6.4-8.2); Sodium Level 141 mmol/L (136-145)
[2018-08-21 20:59] LABS: Barbiturates NEGATIVE (NEGATIVE); Benzodiazepines NEGATIVE (NEGATIVE); Cocaine NEGATIVE (NEGATIVE); METHAMPHETAM NEGATIVE (NEGATIVE); Methadone NEGATIVE (NEGATIVE); Opiates NEGATIVE (NEGATIVE); Phencyclidine NEGATIVE (NEGATIVE); THC Cannibis NEGATIVE (NEGATIVE)
[2018-08-22] MEDS ORDERED: PROMETHAZINE 25 MG/ML VIAL ONE (00:26)
[2018-08-22] MEDS ORDERED: THIAMINE 200 MG/2 ML INJ ONE (01:26)
[2018-08-22] MEDS ORDERED: NA CHLORIDE 0.9% 1,000 ML ONE (01:26)
[2018-08-22] MEDS ORDERED: MULTIVITAMINS 10 ML VIAL (INJ) IV ONE ×2 (01:26→01:33)
[2018-08-22] MEDS ORDERED: FOLIC ACID 5 MG/ML VIAL ONE ×2 (01:28→01:32)
[2018-08-22 05:26] LABS: Absolute Lymphocytes (CBC) 2.9 K/uL (0.7-4.9); Absolute Monocytes 0.9 K/uL (0.1-1.3); Absolute Neutrophil 9.5 K/uL (1.8-8.0); Basophils % 0.6 % (0-1.3); Eosinophils % 0.2 % (0-4.4); Hematocrit 32.7 % (36.0-45.0); Lymphocytes % 21.5 % (15.3-44.8); Monocytes % 6.5 % (3.3-12.3); RBC Red Blood Cell Count 4.22 M/uL (3.86-4.86)
[2018-08-22 05:34] LABS: BUN Blood Urea Nitrogen 14 mg/dL (7-18); Bicarbonate 24 mmol/L (21-32); Glucose Level 74 mg/dL (74-106); Sodium Level 142 mmol/L (136-145)
--- NOTE | 2018-08-22 11:36 | EDPHYS ---
Physician Documentation [facility] Name: Abi Reynolds Age: 18 yrs Sex: Female : 2000 Arrival Date: 08/21/2018 Time: 20:10 Bed 17 Private MD: ED Physician Heath Suarez HPI: 08/21 20:15 This 18 yrs old Female presents to ER via EMS with complaints of Possible cp Overdose. 20:15 The patient presents to the emergency department after a known overdose, that was cp intentional. 20:15 Context: Method: the patient has a confirmed or suspected ingestion, Zoloft medication, cp Time: 1 hour(s) ago, Extent: approximately 19 of 50 mg tablets of Zoloft, the OD/poisoning occurred at at home, and was witnessed no one, Psychiatric history: the patient has a known psychiatric disorder, depression, Previous OD/poisoning history: none. Associated signs and symptoms: Pertinent positives: nausea, vomiting, Pertinent negatives: auditory hallucinations, decreased level of consciousness, loss of consciousness, visual hallucinations. 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 - Social history:: Smoking status: Patient/guardian denies using tobacco, Patient uses alcohol, patient/guardian reports recent binge of alcohol consumption. Patient/guardian denies using street drugs. - Ebola Screening: : No symptoms or risks identified at this time. ROS: 20:20 Constitutional: Negative for body aches, chills, fever, poor PO intake. cp 20:20 Eyes: Negative for injury, pain, redness, and discharge. cp 20:20 ENT: Negative for drainage from ear(s), ear pain, sore throat, difficulty swallowing, difficulty handling secretions. 20:20 Cardiovascular: Negative for chest pain, palpitations. 20:20 Respiratory: Negative for cough, shortness of breath, wheezing. 20:20 Abdomen/GI: Positive for nausea, vomiting, Negative for abdominal pain, diarrhea, constipation, black/tarry stool, rectal bleeding. 20:20 Skin: Negative for cellulitis, rash. 20:20 Neuro: Negative for altered mental status, headache, loss of consciousness, weakness. 20:20 Psych: Positive for depression, suicide gesture, Negative for auditory hallucinations, visual hallucinations. 20:20 All other systems are negative. Exam: 20:25 Constitutional: The patient appears in no acute distress, alert, awake, cp non-diaphoretic, non-toxic, well developed, well nourished. 20:25 Head/Face: Normocephalic, atraumatic. cp 20:25 Eyes: Pupils equal round and reactive to light, extra-ocular motions intact. Lids and lashes normal. Conjunctiva and sclera are non-icteric and not injected. Cornea within normal limits. Periorbital areas with no swelling, redness, or edema. 20:25 ENT: Nares patent. No nasal discharge, no septal abnormalities noted. Tympanic membranes are normal and external auditory canals are clear. Oropharynx with no redness, swelling, or masses, exudates, or evidence of obstruction, uvula midline. Mucous membranes moist. Chest/axilla: Normal chest wall appearance and motion. Nontender with no deformity. No lesions are appreciated. 20:25 Cardiovascular: Rate: normal, Rhythm: regular, Heart sounds: murmur, not appreciated, Edema: is not appreciated, JVD: is not appreciated. 20:25 Respiratory: the patient does not display signs of respiratory distress, Respirations: normal, no use of accessory muscles, no retractions, no splinting, no tachypnea, labored breathing, is not present, Breath sounds: are clear throughout, no decreased breath sounds, no stridor, no wheezing. 20:25 Abdomen/GI: Inspection: abdomen appears normal, Palpation: abdomen is soft and non-tender, in all quadrants, rebound tenderness, is not appreciated, involuntary guarding, is not appreciated. 20:25 Back: pain, is absent, ROM is normal. 20:25 Skin: no rash present. 20:25 Neuro: Orientation: to person, place \T\ time. Mentation: is normal, Motor: moves all fours, strength is normal. 20:30 ECG was reviewed by the Attending Physician. cp 08/22 00:56 ECG was reviewed by the Attending Physician. cp 06:40 Constitutional: This is a well developed, well nourished patient who is awake, alert, kb and in no acute distress. Head/Face: Normocephalic, atraumatic. Chest/axilla: Normal chest wall appearance and motion. Nontender with no deformity. No lesions are appreciated. Cardiovascular: Regular rate and rhythm with a normal S1 and S2. No gallops, murmurs, or rubs. Normal PMI, no JVD. No pulse deficits. Respiratory: Lungs have equal breath sounds bilaterally, clear to auscultation and percussion. No rales, rhonchi or wheezes noted. No increased work of breathing, no retractions or nasal flaring. Abdomen/GI: Soft, non-tender, with normal bowel sounds. No distension or tympany. No guarding or rebound. No evidence of tenderness throughout. Back: No spinal tenderness. No costovertebral tenderness. Full range of motion. Skin: Warm, dry with normal turgor. Normal color with no rashes, no lesions, and no evidence of cellulitis. MS/ Extremity: Pulses equal, no cyanosis. Neurovascular intact. Full, normal range of motion. Neuro: Awake and alert, GCS 15, oriented to person, place, time, and situation. Cranial nerves II-XII grossly intact. Motor strength 5/5 in all extremities. Sensory grossly intact. Cerebellar exam normal. Normal gait. 06:40 Psych: Behavior/mood is cooperative, suicidal, Affect is calm, Oriented to person, place, time, Patient having thoughts of suicide. Plan for suicide is to overdose Judgement / Insight is normal. Memory is normal. Delusions/hallucinations are not present. Vital Signs: 08/21 20:27 BP 131 / 76; Pulse 95; Resp 16 S; Temp 98.1(O); Pulse Ox 99% on R/A; Weight 69.85 kg bb (R); Height 5 ft. 6 in. (167.64 cm) (R); Pain 0/10; 08/22 00:23 BP 109 / 49; Pulse 95; Resp 18; Pulse Ox 100% on R/A; mg2 00:40 BP 98 / 63; Pulse 85; Resp 20; Pulse Ox 98% on R/A; Pain 1/10; mg2 03:45 BP 110 / 59; Pulse 70; Resp 18; Pulse Ox 99% on R/A; ed1 07:45 BP 102 / 49; Pulse 76; Resp 16; Pulse Ox 98% on R/A; dh3 10:17 BP 112 / 63; Pulse 78; Resp 20; Pulse Ox 99% on R/A; dh3 12:45 BP 113 / 67; Pulse 79; Resp 16; Temp 97.9; Pulse Ox 100% on R/A; ph 08/21 20:27 Body Mass Index 24.86 (69.85 kg, 167.64 cm) bb MDM: 08/21 20:20 Patient medically screened. cp 21:30 Data reviewed: vital signs, nurses notes, lab test result(s), EKG, and as a result, I cp will notify [facility] to have patient evaluated in ED. 23:30 ED course: VSS. Patient evaluated by [facility] and inpatient treatment recommended. cp 08/22 05:41 ED course: Patient not in any distress. Evaluated by [facility] MHMR screener. pkl Recommend transfer to Psychiatric Facility for in - patient treatment. Notified patient of pending transfer. Patient aware of pending transfer.. 06:41 ED course: Pt awake, alert and oriented x3. Reports she has been suicidal since kb childhood. Reports she is trying to find a job and has theft on her record so it has been hard. Reports she is on probation, has to take classes and do community service which all costs a lot of money so she has been struggling with that. . 11:33 Data interpreted: Pulse oximetry: on room air is 99 %. Interpretation: normal. kb Counseling: I had a detailed discussion with the patient and/or guardian regarding: the historical points, exam findings, and any diagnostic results supporting the discharge/admit diagnosis, lab results, radiology results, the need to transfer to another facility, [facility] does not immediately have the required specialist. ED course: Discussed pt's history, exam and diagnostics with Dr Lopes, accepted pt for transfer. Called report to ER physician as well, Dr Hyman accepts pt for transfer. . 08/21 20:12 Order name: Urine Dipstick--Ancillary (enter results); Complete Time: 21:19 ar5 08/21 21:19 Interpretation: Normal except: UKET 1+; UPROT 1+. cp 08/21 20:12 Order name: Urine --Ancillary (enter results); Complete Time: 21:19 ar5 08/21 20:21 Order name: Acetaminophen; Complete Time: 21:19 cp 08/21 20:21 Order name: Basic Metabolic Panel; Complete Time: 21:19 cp 08/21 21:19 Interpretation: Normal except: CO2 19; GLUC 58. cp 08/21 20:21 Order name: CBC with Diff; Complete Time: 21:19 cp 08/22 00:59 Interpretation: Normal except: WBC 17.0; RBC 5.24; MCV 77.9; MCH 24.2; MCHC 31.1; RDW cp 17.5; SURJIT% 89.7; LYM% 7.0; MN% 2.8; NEUT A 15.2. 08/21 20:21 Order name: ETOH Level; Complete Time: 21:19 cp 08/22 00:59 Interpretation: Abnormal: ETOH 69. cp 08/21 20:21 Order name: Hepatic Function; Complete Time: 21:19 cp 08/22 00:59 Interpretation: Normal except: BILIT 1.3; BILID 0.4; GLOB 3.9. cp 08/21 20:21 Order name: PT-INR; Complete Time: 21:19 cp 08/21 20:21 Order name: Ptt, Activated; Complete Time: 21:19 cp 08/21 20:21 Order name: Salicylate; Complete Time: 21:19 cp 08/21 20:21 Order name: Urine Drug Screen; Complete Time: 21:19 cp 08/22 02:04 Order name: CBC with Diff: redraw \T\0500; Complete Time: 05:37 cp 08/22 02:04 Order name: BMP: redraw \T\0500; Complete Time: 05:37 cp 08/22 02:13 Order name: Glucose, Ancillary Testing; Complete Time: 04:13 EDMS 08/21 20:21 Order name: Urine Test (obtain specimen); Complete Time: 20:51 cp 08/21 20:21 Order name: EKG; Complete Time: 20:21 cp 08/21 20:21 Order name: EKG - Nurse/Tech; Complete Time: 20:30 cp 08/21 20:21 Order name: IV Saline Lock; Complete Time: 20:30 cp 08/22 05:05 Order name: Diet Regular; Complete Time: 05:06 ed1 08/22 08:29 Order name: Diet Regular; Complete Time: 08:30 dh3 08/22 08:41 Order name: EKG Electrocardiogram EDMS 08/22 10:13 Order name: Glucose, Ancillary Testing; Complete Time: 10:14 EDMS 08/22 11:26 Order name: Diet Finger Food; Complete Time: 11:26 ph 08/21 20:21 Order name: Labs collected and sent; Complete Time: 20:31 cp 08/21 20:21 Order name: Urine Dipstick-Ancillary (obtain specimen); Complete Time: 20:51 cp EC/31 20:30 Rate is 73 beats/min. Rhythm is regular. LA interval is shortened at 104 msec. QRS cp interval is normal. QT interval is prolonged at 436 msec. T waves are Flattened in lead III. Interpreted by me. Reviewed by me. 08/22 00:56 Rate is 88 beats/min. Rhythm is regular. LA interval is shortened at 108 msec. QRS cp interval is normal. QT interval is normal. Interpreted by me. Reviewed by me. Administered Medications: 08/21 20:27 Drug: Zofran 4 mg Route: IVP; Site: left antecubital; mg2 20:51 Follow up: Response: No adverse reaction; Nausea is decreased sg 08/22 00:13 Follow up: Response: No adverse reaction; Marked relief of symptoms mg2 08/21 20:27 Drug: NS 0.9% 1000 ml Route: IV; Rate: 1 bolus; Site: left antecubital; mg2 08/22 00:12 Follow up: IV Status: Completed infusion mg2 08/21 23:20 Drug: Zofran 4 mg Route: IVP; Site: left antecubital; mg2 08/22 00:12 Follow up: Response: No adverse reaction; Marked relief of symptoms mg2 00:20 Drug: Phenergan 12.5 mg Route: IVP; Site: left antecubital; mg2 01:32 Follow up: Response: No adverse reaction; Marked relief of symptoms; Nausea is decreasedmg2 00:56 Drug: NS 0.9% 1000 ml Route: IV; Rate: 1 bolus; Site: left antecubital; mg2 12:56 Follow up: Response: No adverse reaction; IV Status: Completed infusion ph :31 Drug: Banana Bag - (NS 0.9% 1000 ml, foLIC Acid 1 mg, Thiamine 100 mg, Multivitamin 1 mg2 amp) Route: IV; Rate: 125 ml/hr; Site: left antecubital; 12:56 Follow up: Response: No adverse reaction; IV Status: Completed infusion ph Point of Care Testing: Blood Glucose: 08/21 22:58 Blood Glucose: 105 mg/dL; lt1 08/22 02:22 Blood Glucose: 94 mg/dL; mg2 Ranges: Critical Glucose Levels:Adult <50 mg/dl or >400 mg/dl <40 mg/dl or >180 mg/dl Disposition: 08/22/18 11:35 Transfer ordered to Psych Facility. Diagnosis are Suicidal ideations, Poisoning by other antidepressants, intentional self-harm. - Reason for transfer: Higher level of care. - Accepting physician is Jose C. - Condition is Stable. - Problem is new. - Symptoms have improved. Signatures: Dispatcher [employer] EDMS Wilda Galvez, PITER-C UPS DRIVER-Heath Avila MD MD pkl Ballard, Brenda RN RN bb Niecy Garber RN RN ph Ethan Swanson, VASYL PA cp Hardik Rossi RN RN mg2 Clyde Weaver RN sg Corrections: (The following items were deleted from the chart) 12:57 11:35 08/22/2018 11:35 Transfer ordered to Psych Facility. Diagnosis is Suicidal ph ideations; Poisoning by other antidepressants, intentional self-harm. Reason for transfer: Higher level of care. Accepting physician is Jose C. Condition is Stable. Problem is new. Symptoms have improved. kb
--- NOTE | 2018-08-22 11:36 | ER ---
Nurse's Notes [facility] Name: Abi Reynolds Age: 18 yrs Sex: Female : 2000 Arrival Date: 08/21/2018 Time: 20:10 Bed 17 Private MD: Diagnosis: Suicidal ideations;Poisoning by other antidepressants, intentional self-harm Presentation: 08/21 20:15 Presenting complaint: EMS states: they were toned out for report of pt overdosing on bb her medication she took approx 19 Zoloft 50 mg prior to their arrival and she drank a bottle of vodka through out the day in an effort to kill herself. Pt states "I don't want to be here anymore". Transition of care: patient was not received from another setting of care. Onset of symptoms was August 21, 2018. Risk Assessment: Do you want to hurt yourself or someone else? Patient reports desire/thoughts of hurting themselves or someone else. Provider notified. Initial Sepsis Screen: Does the patient meet any 2 criteria? No. Patient's initial sepsis screen is negative. Does the patient have a suspected source of infection? No. Patient's initial sepsis screen is negative. Care prior to arrival: None. 20:15 Method Of Arrival: EMS: [facility] bb 20:15 Acuity: MALINA 2 bb Triage Assessment: 08/22 00:29 Pain: Complains of pain in abdomen Pain does not radiate. Pain currently is 1 out of 10 mg2 on a pain scale. Quality of pain is described as aching, Pain began gradually, 4 hours ago. Is intermittent. 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 - Social history:: Smoking status: Patient/guardian denies using tobacco, Patient uses alcohol, patient/guardian reports recent binge of alcohol consumption. Patient/guardian denies using street drugs. - Ebola Screening: : No symptoms or risks identified at this time. Screenin:31 Abuse screen: Denies threats or abuse. Denies injuries from another. Nutritional mg2 screening: No deficits noted. Tuberculosis screening: No symptoms or risk factors identified. Fall Risk IV access (20 points). Assessment: 20:15 General: Appears in no apparent distress. slender, well groomed, well developed, well sg nourished, Behavior is calm, cooperative, quiet. Neuro: Level of Consciousness is awake, obeys commands, drowsy. Oriented to person, place, time, situation, Network Relay Tester are equal bilaterally Moves all extremities. Full function Gait is steady, Speech is normal, Facial symmetry appears normal, Pupils are PERRLA. Cardiovascular: Capillary refill is brisk in bilateral fingers Patient's skin is warm and dry. Chest pain is denied. Respiratory: Airway is patent Respiratory effort is even, unlabored, Respiratory pattern is regular, symmetrical, Breath sounds are clear. GI: Abdomen is flat, non-distended, Reports nausea, vomiting, since 1900. : No signs and/or symptoms were reported regarding the genitourinary system. EENT: No signs and/or symptoms were reported regarding the EENT system. Derm: Skin is pink, warm \\T\\ dry. Musculoskeletal: No signs and/or symptoms reported regarding the musculoskeletal system. 20:16 Reassessment: Poison control contacted, notified pt ingested 19 tablets of her Zoloft sg 50 mg tablets, pt reports prescription filled on 08/11/2018 and has taken one tablet once daily as instructed until tonight when she took the remaining tablets, ordered to Observe patient 6-12 hrs or until asymptomatic, tylenol/salicylate levels, serotongenic effects, dilated and enlarged pupils, tacycardia as well as changes in BP, IV fluids, supportive care, EKG, and a toxic panel work up per facility protocol. 20:20 Reassessment: Poison control Rep was Ashia, . Reassessment: a pt sg belongings list has been done and verified with facility security, pt medications have been checked into security as well. 22:14 Reassessment: Mother was informed about her daughter situation. her number is [phone] [id number] [phone] (rohit). 22:22 Reassessment: Patient appears in no apparent distress at this time. No changes from la1 previously documented assessment. Patient and/or family updated on plan of care and expected duration. Pain level reassessed. Patient is alert, oriented x 3, equal unlabored respirations, skin warm/dry/pink. 22:52 Reassessment: [facility] at bedside performing pt interview. la1 23:00 Reassessment: recommendation is inpatient admission by [facility] staff. provider mg2 informed. 08/22 00:26 Reassessment: patient complained of nausea. provider informed. patient medicated. mg2 00:47 Reassessment: Spoke with Chichi from poison control who states pt is can be medically la1 cleared if deemed so by ERP. Pt has QTc of 480 which is slightly over their threshold of 470, Chichi recommends considering one gram of magnesium IV if ECG still has QTc >470 but since level is so close this is not a major concern. Ethan Kiki ERP ordered repeat ECG which was obtained at 1250. 01:04 Reassessment: repeat EKG was done and QT interval was 447. provider informed. mg2 03:45 Reassessment: Patient appears in no apparent distress at this time. Respiratory: Airway ed1 is patent Respiratory effort is even, unlabored, Respiratory pattern is regular, symmetrical. 05:00 Reassessment: Patient and/or family updated on plan of care and expected duration. Pain ea level reassessed. Pt resting with eyes closed, respirations even and unlabored. Chest expansions even and symmetrical. No s/s of pain or discomfort noted at this time. 06:00 Reassessment: Patient and/or family updated on plan of care and expected duration. Pain ea level reassessed. Patient is alert, oriented x 3, equal unlabored respirations, skin warm/dry/pink. Patient denies pain at this time. 07:00 Reassessment: Patient appears in no apparent distress at this time. Patient and/or ph family updated on plan of care and expected duration. Pain level reassessed. Pt asleep w/ equal and unlabored respirations, VSS, will continue to monitor. 08:00 Reassessment: Patient appears in no apparent distress at this time. No changes from ph previously documented assessment. Patient and/or family updated on plan of care and expected duration. Pain level reassessed. 09:15 Reassessment: Patient appears in no apparent distress at this time. Patient and/or ph family updated on plan of care and expected duration. Pain level reassessed. Patient is alert, oriented x 3, equal unlabored respirations, skin warm/dry/pink. Pt sitting up in bed eating breakfast, tolerating well, awaiting acceptance at a psychiatric facility. 10:22 Reassessment: Patient appears in no apparent distress at this time. Patient and/or ph family updated on plan of care and expected duration. Pain level reassessed. Patient is alert, oriented x 3, equal unlabored respirations, skin warm/dry/pink. Nurse to nurse report given to Daniela Joseph RN at [facility]. 11:45 Reassessment: Patient appears in no apparent distress at this time. Patient and/or ph family updated on plan of care and expected duration. Pain level reassessed. Patient is alert, oriented x 3, equal unlabored respirations, skin warm/dry/pink. IV d/c, awaiting [facility] for transport to [facility]. 12:52 Reassessment: Patient appears in no apparent distress at this time. Patient and/or ph family updated on plan of care and expected duration. Pain level reassessed. Patient is alert, oriented x 3, equal unlabored respirations, skin warm/dry/pink. [facility] at bedside, report given to Lor Burdick, EMT, pt belonging and medications brought by security, pt transferred to [facility]. Psych: 08/21 20:30 Subjective: Patient's mood is sad, Having thoughts of suicide. Plan for suicide is bb overdose. Objective: Patient is cooperative, Speech is soft, Affect is flat. Interventions: Removed personal items and placed in bag. Patient placed in hospital gown. Urine collected and sent for urine drug test. Belonging list filled out. Suicide Risk Assessment: Sad Person Scale: Sex of patient: Female: Score 0 points. Age of patient: Score 1 point if patient 15-34. Depression: Score 1 point if signs of depression are present. Substance Abuse: Score 1 point if patient abuses alcohol or drugs. Social Support: Organized Plan: Score 1 point if patient had a plan in place. Patient uses 1 bottle of liquor, Last use was today. Zoloft 50 mg pills approx 19. 22:37 Safety Checks: Personal items have been removed. Door is open. mg2 08/22 10:59 Commitment: Patient will be a voluntary commitment. ph Overdose: 08/21 20:29 Patient took approx 19 Zoloft 50 mg pills. Overdose occurred 1-2 hours ago. bb Vital Signs: 20:27 BP 131 / 76; Pulse 95; Resp 16 S; Temp 98.1(O); Pulse Ox 99% on R/A; Weight 69.85 kg bb (R); Height 5 ft. 6 in. (167.64 cm) (R); Pain 0/10; 08/22 00:23 BP 109 / 49; Pulse 95; Resp 18; Pulse Ox 100% on R/A; mg2 00:40 BP 98 / 63; Pulse 85; Resp 20; Pulse Ox 98% on R/A; Pain 1/10; mg2 03:45 BP 110 / 59; Pulse 70; Resp 18; Pulse Ox 99% on R/A; ed1 07:45 BP 102 / 49; Pulse 76; Resp 16; Pulse Ox 98% on R/A; dh3 10:17 BP 112 / 63; Pulse 78; Resp 20; Pulse Ox 99% on R/A; dh3 12:45 BP 113 / 67; Pulse 79; Resp 16; Temp 97.9; Pulse Ox 100% on R/A; ph 08/21 20:27 Body Mass Index 24.86 (69.85 kg, 167.64 cm) bb ED Course: 08/21 20:10 Patient arrived in ED. sg 20:13 Ethan Swanson PA is PHCP. cp 20:13 Heath Suarez MD is Attending Physician. cp 20:25 Hardik Rossi, ARY is Primary Nurse. mg2 20:26 Triage completed. bb 20:27 Safety checks: Items removed: yes. Door open/sign placed on door: yes. Family/friend lt1 present: no. Sitter present: Yes. 20:27 Arm band placed on Patient placed in an exam room, on a stretcher. bb 20:31 No provider procedures requiring assistance completed. Inserted saline lock: 20 gauge mg2 in left antecubital area, using aseptic technique. Blood collected. 20:31 Initial lab(s) drawn, by ED staff, sent to lab. EKG done, by ED staff, reviewed by kellen FALLON. 20:32 Patient has correct armband on for positive identification. Placed in gown. Side rails mg2 up X2. Warm blanket given. 20:45 Safety checks: Items removed: yes. Door open/sign placed on door: yes. Family/friend lt1 present: no. Sitter present: Yes. 21:00 Safety checks: Items removed: yes. Door open/sign placed on door: yes. Family/friend lt1 present: no. Sitter present: Yes. 21:15 Safety checks: Items removed: yes. Door open/sign placed on door: yes. Family/friend lt1 present: no. Sitter present: Yes. 21:30 Safety checks: Items removed: yes. Door open/sign placed on door: yes. Family/friend lt1 present: no. Sitter present: Yes. 21:45 Safety checks: Items removed: yes. Door open/sign placed on door: yes. Family/friend lt1 present: no. Sitter present: Yes. 22:00 Safety checks: Items removed: yes. Door open/sign placed on door: yes. Family/friend lt1 present: no. Sitter present: Yes. 22:15 Safety Checks: Personal items have been removed. The door is open or patient has been mg2 placed in a hallway bed/chair. Sitter present at this time. 22:15 Safety checks: Items removed: yes. Door open/sign placed on door: yes. Family/friend lt1 present: no. Sitter present: Yes. 22:30 Safety Checks: Personal items have been removed. The door is open or patient has been mg2 placed in a hallway bed/chair. Sitter present at this time. 22:30 Safety checks: Items removed: yes. Door open/sign placed on door: yes. Family/friend lt1 present: no. Sitter present: Yes. 23:00 Safety checks: Items removed: yes. Door open/sign placed on door: yes. Family/friend lt1 present: Other: [employer] is talking with the patient. Sitter present: Yes. 04 00:01 Safety checks: Items removed: yes. Door open/sign placed on door: Patient placed in ag4 hallway bed. yes. Family/friend present: no. Sitter present: Yes. 00:16 Safety checks: Items removed: yes. Door open/sign placed on door: Patient placed in ag4 hallway bed. yes. Family/friend present: no. Sitter present: Yes. 00:31 Safety checks: Items removed: yes. Door open/sign placed on door: Patient placed in ag4 hallway bed. yes. Family/friend present: no. Sitter present: Yes. 00:46 Safety checks: Items removed: yes. Door open/sign placed on door: Patient placed in ag4 hallway bed. yes. Family/friend present: no. Sitter present: Yes. 01:01 Safety checks: Items removed: yes. Door open/sign placed on door: Patient placed in ag4 hallway bed. yes. Family/friend present: no. Sitter present: Yes. 01:16 Safety checks: Items removed: yes. Door open/sign placed on door: Patient placed in ag4 hallway bed. yes. Family/friend present: no. Sitter present: Yes. 01:36 Safety checks: Items removed: yes. Door open/sign placed on door: Patient placed in ag4 hallway bed. yes. Family/friend present: no. Sitter present: Yes. 01:46 Safety checks: Items removed: yes. Door open/sign placed on door: Patient placed in ag4 hallway bed. yes. Family/friend present: no. Sitter present: Yes. 02:01 Safety checks: Items removed: yes. Door open/sign placed on door: Patient placed in ag4 hallway bed. yes. Family/friend present: no. Sitter present: Yes. 02:15 Safety Checks: Personal items have been removed. The door is open or patient has been ed1 placed in a hallway bed/chair. There are no family/friend visitors at this time Sitter present at this time. 02:30 Safety Checks: Personal items have been removed. The door is open or patient has been ed1 placed in a hallway bed/chair. There are no family/friend visitors at this time Sitter present at this time. 02:45 Safety Checks: Personal items have been removed. The door is open or patient has been ed1 placed in a hallway bed/chair. There are no family/friend visitors at this time Sitter present at this time. 03:00 Safety Checks: Personal items have been removed. The door is open or patient has been ed1 placed in a hallway bed/chair. There are no family/friend visitors at this time Sitter present at this time. 03:01 Primary Nurse role handed off by Hardik Rossi RN ed1 03:01 Isabel, Chasidy, RN is Primary Nurse. ed1 03:15 Safety Checks: Personal items have been removed. The door is open or patient has been ed1 placed in a hallway bed/chair. There are no family/friend visitors at this time Sitter present at this time. 03:30 Safety Checks: Personal items have been removed. The door is open or patient has been ed1 placed in a hallway bed/chair. There are no family/friend visitors at this time Sitter present at this time. 03:45 Appears to be sleeping. Safety Checks: Personal items have been removed. The door is ed1 open or patient has been placed in a hallway bed/chair. There are no family/friend visitors at this time Sitter present at this time. 04:00 Safety Checks: Personal items have been removed. The door is open or patient has been ed1 placed in a hallway bed/chair. There are no family/friend visitors at this time Sitter present at this time. 04:15 Appears to be sleeping. Safety Checks: Personal items have been removed. The door is ed1 open or patient has been placed in a hallway bed/chair. There are no family/friend visitors at this time Sitter present at this time. 04:30 Appears to be sleeping. Safety Checks: Personal items have been removed. The door is ed1 open or patient has been placed in a hallway bed/chair. There are no family/friend visitors at this time Sitter present at this time. 04:45 Appears to be sleeping. Safety Checks: Personal items have been removed. The door is ed1 open or patient has been placed in a hallway bed/chair. There are no family/friend visitors at this time Sitter present at this time. 05:00 Resting quietly. Safety Checks: Personal items have been removed. The door is open or ed1 patient has been placed in a hallway bed/chair. There are no family/friend visitors at this time Sitter present at this time. 05:00 Repeat lab(s) drawn. by ED staff, sent to lab. ed1 05:15 Safety Checks: Personal items have been removed. The door is open or patient has been ed1 placed in a hallway bed/chair. There are no family/friend visitors at this time Sitter present at this time. 05:15 Diet tray ordered. PO fluids given. Snack given. ed1 05:30 Safety checks: Items removed: yes. Door open/sign placed on door: Patient placed in ag4 hallway bed. yes. Family/friend present: no. Sitter present: Yes. 05:41 Primary Nurse role handed off by Chasidy Isabel RN ed1 05:45 Safety checks: Items removed: yes. Door open/sign placed on door: Patient placed in ag4 hallway bed. yes. Family/friend present: no. Sitter present: Yes. 05:59 Safety checks: Items removed: yes. Door open/sign placed on door: Patient placed in ag4 hallway bed. yes. Family/friend present: no. Sitter present: Yes. 06:27 Safety checks: Items removed: yes. Door open/sign placed on door: Patient placed in ag4 hallway bed. yes. Sitter present: Yes. 06:38 PHCP role handed off by Ethan Swanson PA kb 06:38 Wilda Galvez FNP-C is PHCP. kb 06:45 Safety checks: Items removed: yes. Door open/sign placed on door: Patient placed in ag4 hallway bed. yes. Family/friend present: no. Sitter present: Yes. 07:00 Safety checks: Items removed: yes. Door open/sign placed on door: yes. Family/friend dh3 present: no. Sitter present: Yes. 07:08 Niecy Garber, RN is Primary Nurse. 07:15 Safety checks: Items removed: yes. Door open/sign placed on door: yes. Family/friend dh3 present: no. Sitter present: Yes. 07:24 Report given to Niecy MCALLISTER. ea 07:30 Safety checks: Items removed: yes. Door open/sign placed on door: yes. Family/friend dh3 present: no. Sitter present: Yes. 07:45 Safety checks: Items removed: yes. Door open/sign placed on door: yes. Family/friend dh3 present: no. Sitter present: Yes. 08:00 Safety checks: Items removed: yes. Door open/sign placed on door: yes. Family/friend dh3 present: no. Sitter present: Yes. 08:15 Safety checks: Items removed: yes. Door open/sign placed on door: yes. Family/friend dh3 present: no. Sitter present: Yes. 08:30 Safety checks: Items removed: yes. Door open/sign placed on door: yes. Family/friend dh3 present: no. Sitter present: Yes. 08:45 Safety checks: Items removed: yes. Door open/sign placed on door: yes. Family/friend dh3 present: no. Sitter present: Yes. 09:00 Safety checks: Items removed: yes. Door open/sign placed on door: yes. Family/friend dh3 present: yes. Family/friends encouraged to stay with patient. Sitter present: Yes. 09:15 Safety checks: Items removed: yes. Door open/sign placed on door: yes. Family/friend dh3 present: yes. Family/friends encouraged to stay with patient. Sitter present: Yes. 09:16 received a phone call from Rosey with [facility], was told by her that [facility] has 3 open beds for [facility] patients. Called [facility], was told they are reviewing the chart, will call me back. 09:30 Safety checks: Items removed: yes. Door open/sign placed on door: yes. Family/friend dh3 present: no. Sitter present: Yes. 09:45 Safety checks: Items removed: yes. Door open/sign placed on door: yes. Family/friend dh3 present: no. Sitter present: Yes. 10:00 Safety checks: Items removed: yes. Door open/sign placed on door: yes. Family/friend dh3 present: no. Sitter present: Yes. 10:15 Safety checks: Items removed: yes. Door open/sign placed on door: yes. Family/friend dh3 present: no. Sitter present: Yes. 10:30 Safety checks: Items removed: yes. Door open/sign placed on door: yes. Family/friend dh3 present: yes. Family/friends encouraged to stay with patient. Sitter present: Yes. 10:45 Safety checks: Items removed: yes. Door open/sign placed on door: yes. Family/friend dh3 present: yes. Family/friends encouraged to stay with patient. Sitter present: Yes. 11:00 Safety checks: Items removed: yes. Door open/sign placed on door: yes. Family/friend dh3 present: yes. Family/friends encouraged to stay with patient. Sitter present: Yes. 11:15 Safety checks: Items removed: yes. Door open/sign placed on door: yes. Family/friend dh3 present: yes. Family/friends encouraged to stay with patient. Sitter present: Yes. 11:30 Safety checks: Items removed: yes. Door open/sign placed on door: yes. Family/friend dh3 present: yes. Family/friends encouraged to stay with patient. Sitter present: Yes. 11:45 Safety checks: Items removed: yes. Door open/sign placed on door: yes. Family/friend dh3 present: yes. Family/friends encouraged to stay with patient. Sitter present: Yes. 11:51 IV discontinued, intact, bleeding controlled, No redness/swelling at site. ph 12:00 Safety checks: Items removed: yes. Door open/sign placed on door: yes. Family/friend dh3 present: yes. Family/friends encouraged to stay with patient. Sitter present: Yes. 12:15 Safety checks: Items removed: yes. Door open/sign placed on door: yes. Family/friend dh3 present: yes. Family/friends encouraged to stay with patient. Sitter present: Yes. 12:30 Safety checks: Items removed: yes. Door open/sign placed on door: yes. Family/friend dh3 present: yes. Family/friends encouraged to stay with patient. Sitter present: Yes. Administered Medications: 08/21 20:27 Drug: Zofran 4 mg Route: IVP; Site: left antecubital; mg2 20:51 Follow up: Response: No adverse reaction; Nausea is decreased sg 08/22 00:13 Follow up: Response: No adverse reaction; Marked relief of symptoms mg2 08/21 20:27 Drug: NS 0.9% 1000 ml Route: IV; Rate: 1 bolus; Site: left antecubital; mg2 08/22 00:12 Follow up: IV Status: Completed infusion mg2 08/21 23:20 Drug: Zofran 4 mg Route: IVP; Site: left antecubital; mg2 08/22 00:12 Follow up: Response: No adverse reaction; Marked relief of symptoms mg2 00:20 Drug: Phenergan 12.5 mg Route: IVP; Site: left antecubital; mg2 01:32 Follow up: Response: No adverse reaction; Marked relief of symptoms; Nausea is decreasedmg2 00:56 Drug: NS 0.9% 1000 ml Route: IV; Rate: 1 bolus; Site: left antecubital; mg2 12:56 Follow up: Response: No adverse reaction; IV Status: Completed infusion ph 01:31 Drug: Banana Bag - (NS 0.9% 1000 ml, foLIC Acid 1 mg, Thiamine 100 mg, Multivitamin 1 mg2 amp) Route: IV; Rate: 125 ml/hr; Site: left antecubital; 12:56 Follow up: Response: No adverse reaction; IV Status: Completed infusion ph Point of Care Testing: Blood Glucose: 03 22:58 Blood Glucose: 105 mg/dL; lt1 04 02:22 Blood Glucose: 94 mg/dL; mg2 Ranges: Outcome: 11:35 ER care complete, transfer ordered by . kb 12:55 Transferred by ground EMS [facility] to other acute care facility: [facility] Transfer form completed. 12:55 Condition: stable 12:55 Instructed on the need for transfer. 12:57 Patient left the ED. ph Signatures: Wilda Galvez, PITER-Antonietta [employer]PUTY COUNTY ATTORNEY-Hyacinth Ortega Steven, RN ARY sg Joselyn Muñoz RN ARY bb Chasidy Isabel RN RN ed1 Brandon Steele RN RN la1 Niecy Garber RN RN ph Ethan Swanson PA PA cp Herrera, Deanna 3 Shraddha Jacques RN Hardik Polanco ea, RN RN mg2 Jung, Valdo ag4 Grossman, Audrey lt1 Corrections: (The following items were deleted from the chart) 01:02 01:02 Safety checks: Items removed: yes. Door open/sign placed on door: Patient placed ag4 in hallway bed. yes. Family/friend present: no. Sitter present: Yes. ag4 01:20 01:17 Safety checks: Items removed: yes. Door open/sign placed on door: Patient placed ag4 in hallway bed. yes. Family/friend present: no. Sitter present: Yes. ag4 01:46 01:45 Safety checks: Items removed: yes. Door open/sign placed on door: Patient placed ag4 in hallway bed. yes. Family/friend present: no. Sitter present: Yes. ag4 01:47 01:36 Safety checks: ag4 ag4 02:03 02:02 Safety checks: Items removed: yes. Door open/sign placed on door: Patient placed ag4 in hallway bed. yes. Family/friend present: no. Sitter present: Yes. ag4 05:45 05:42 Safety checks: Items removed: yes. Door open/sign placed on door: Patient placed ag4 in hallway bed. yes. Family/friend present: no. Sitter present: Yes. ag4 06:54 00:46 Safety checks: Items removed: yes. Door open/sign placed on door: Patient placed ag4 in hallway bed. yes. Family/friend present: no. Sitter present: Yes. ag4 06:54 06:43 Safety checks: Items removed: yes. Door open/sign placed on door: Patient placed ag4 in hallway bed. yes. Family/friend present: no. Sitter present: Yes. ag4
== END 2018-08-22 12:57 ==
LOC: ER 20:04
DX: T43.222A Poisoning by selective serotonin reuptake inhibitors, intentional self-harm, initial encounter (principal); R11.2 Nausea with vomiting, unspecified; R45.851 Suicidal ideations
CPT/HCPCS: 36415; 80048; 80076; 80307; 80320; 80329; 81003; 81025; 82962; 85025; 85610; 85730; 93005; 96361; 96365; 96366; 96375; 99285; J2405; J2550; J3411; J7030

== ENCOUNTER 2020-02-12 18:33 | Emergency (ER) | payer SELFPAY ==
--- OUTSIDE RECORDS SUMMARY | 2020-02-12 18:37 | XMS REPORT | Continuity of Care Document ---
:2000 Author Organization AG&P Information [facility] Care Team Providers Name Role Phone Carnad Unavailable Un available Problems Problem Status Onset Classification Date Comments Sourc e Date Reported Unspecified 02/09/2017 [facility] convulsions [address] [facility] 7 Orthostatic 08/25/2016 [facility] hypotension 7 Headache 08/25/2016 [facility] 7 SENT-HEAD Active [facility] PAIN 7 Discharge 07/16/2016 [facility] Diagnosis: 7 Nausea vomiting and diarrhea Discharge 07/16/2016 [facility] Diagnosis: 7 Abdominal pain, acute ABD PAIN/ Active [facility] VOMITTING 7 Medications Medication Details Route Status Patient Ordering Order Source Instructions Provider Date Sodium Chloride 1,000 mL, Inactive 0.9% (Bolus) IV 1,000 ml/hr, 2016 [facility] Infuse Over: 1 hr, Route: IV, 1,000, Drug form: INJ, ONCE, Priority: STAT, Dosing Weight 86.364 kg, Start date: 02/06/17 11:19:00 CDT, Duration: 1 doses or times, Stop date: 02/06/17 11:19:00 CDT Saline Flush Notes: (Same Inactive 0.9% as: BD 2016 [facility]) ibuprofen 800 mg 800 mg = 1 No Longer oral tablet tab, PO, Q8H, Active 2016 [facility] PRN Pain, Take with food, # 30 tab, 0 Refill(s) Sodium Chloride 1,000 mL, Inactive 0.154 MEQ/ML Infuse Over: 2016 [facility] Injectable 0.5 hr, Solution Route: IV, Drug form: INJ, ONCE, Priority: STAT, Dosing Weight 88.636 kg, Start date: 08/22/16 11:35:00 CDT, Stop date: 08/22/16 11:35:00 CDT Ondansetron 4 MG 4 mg = 1 tab, Active H Disintegrating PO, TID, PRN 2016 [facility] Tablet Nausea / Vomiting, Dissolve tab under tongue, X 3 day, # 10 tab, 0 Refill(s) Famotidine Notes: (Same Inactive as: Pepcid) 2016 [facility] Can be dilute in 5-10cc NS IVP: Slow IV push over at least 2 minutes. GI cocktail Notes: G.I. Inactive Cocktail = 2016 [facility] antacid with simethicone 22.5 mL - lidocaine viscous 7.5 mL Ondansetron Notes: (Same Inactive as: Zofran) 2016 [facility] MEDICATION WASTE Product Size: 4 mg Product Wasted: ___ mg Sodium Chloride 1,000 mL, Inactive 0.154 MEQ/ML 1000 ml/hr, 2016 [facility] Injectable Infuse Over: Solution 1 hr, Route: IV, 1,000, Drug form: INJ, ONCE, Priority: STAT, Dosing Weight 88.636 kg, Start date: 07/13/16 17:47:00 ATTENUATOR, Duration: 1 doses or times, Stop date: 07/13/16 17:47:00 ATTENUATOR Allergies, Adverse Reactions, Alerts No Known Medication Allergies Immunizations No Data Provided for This Section Results Order Name Results Value Reference Date Interpretation Comments Megan rce Range CHEM PANEL eGFR 134 02/06 Result Comment: The [facility] eGFR is calculated using the CKD-EPI formula. In most young, healthy individuals the eGFR will be >90 mL/min/1.73m2 . The eGFR declines with age. An eGFR of 60-89 may be normal in some populations, particularly the elderly, for whom the CKD-EPI formula has not been extensively validated. Use of the eGFR is not recommended in the following populations:< br/>
Randi viduals with unstable creatinine concentration s, including patients and those with serious co-morbid conditions.<b r/>
Patie nts with extremes in muscle mass or diet.

The data above are obtained from the National Kidney Disease Education Program (NKDEP) which additionally recommends that when the eGFR is used in patients with extremes of body mass index for purposes of drug dosing, the eGFR should be multiplied by the estimated BMI. CHEM PANEL AST 13 0 - 37 02/06 [facility] CHEM PANEL Alk Phos 48 39 - 136 02/06 [facility] CHEM PANEL ALT 22 0 - 65 02/06 [facility] CHEM PANEL Albumin Lvl 3.3 3.5 - 5.0 02/06 [facility] CHEM PANEL Creatinine 0.58 0.50 - 02/06 [facility] Lvl 1.40 /2016 [facility] CHEM PANEL Potassium 3.7 3.5 - 5.1 02/06 [facility] Lvl /2016 [facility] CHEM PANEL BUN 13 7 - 22 02/06 [facility] CHEM PANEL Sodium Lvl 137 135 - 145 02/06 [facility] CHEM PANEL Bili Total 0.3 0.2 - 1.3 02/06 [facility] CHEM PANEL Chloride Lvl 105 95 - 109 02/06 [facility] CHEM PANEL Calcium Lvl 8.3 8.5 - 10.5 02/06 [facility] CHEM PANEL Total 7.5 6.4 - 8.4 02/06 [facility] CHEM PANEL CO2 25 24 - 32 02/06 [facility] CHEM PANEL Glucose Lvl 88 70 - 99 02/06 [facility] CHEM PANEL B/C Ratio 22 6 - 25 02/06 [facility] CHEM PANEL Globulin 4.2 2.7 - 4.2 02/06 [facility] CHEM PANEL AGAP 10.7 10.0 - 02/06 MH 20.0 [facility] CHEM PANEL A/G Ratio 0.8 0.7 - 1.6 02/06 [facility] DRUG U Kelly Scr Negative Negative 02/06 SCREEN *NA* (02/06/17 11:37 AM) DRUG U Benzodia Negative Negative 02/06 [facility] SCREEN Scr *NA* (02/06/17 11:37 AM) DRUG U Cocaine Negative Negative 02/06 [facility] SCREEN Scr *NA* (02/06/17 11:37 AM) DRUG U Cannab Scr Positive Negative 02/06 [facility] SCREEN *ABN* (02/06/17 11:37 AM) DRUG U Opiate Scr Negative Negative 02/06 [facility] SCREEN *NA* (02/06/17 11:37 AM) DRUG U Phencyc Negative Negative 02/06 SCREEN Scr *NA* /2016 [facility] (02/06/17 11:37 AM) DRUG UDS Note See Note 02/06 SCREEN (02/06/17 11:37 AM) /2016 [facility] DRUG U Amph Scr Negative Negative 02/06 SCREEN *NA* [facility] (02/06/17 11:37 AM) ENDOCRINOL S Preg Negative Negative 02/06 OGY *NA* /2016 [facility] (02/06/17 11:37 AM) HEMATOLOGY Eosinophils 0.2 0.0 - 0.5 02/06 MH # /2017 [facility] HEMATOLOGY Monocytes # 0.7 0.0 - 0.8 02/06 [facility] HEMATOLOGY Basophils # 0.1 0.0 - 0.2 02/06 [facility] HEMATOLOGY Lymphocytes 2.9 1.0 - 5.5 02/06 MH # /2016 [facility] HEMATOLOGY Segs-Bands # 7.2 1.5 - 8.1 02/06 [facility] HEMATOLOGY Monocytes 5.9 2.0 - 12.0 02/06 [facility] HEMATOLOGY Lymphocytes 26.2 20.0 - 02/06 MH 40.0 /2016 [facility] HEMATOLOGY Basophils 0.9 0.0 - 1.0 02/06 [facility] HEMATOLOGY Eosinophils 1.5 0.0 - 4.0 02/06 [facility] HEMATOLOGY Segs 65.5 45.0 - 02/06 MH 75.0 /2016 [facility] HEMATOLOGY INR 0.93 0.85 - 02/06 MH 1.17 /2016 [facility] HEMATOLOGY PT 12.7 12.0 - 02/06 MH 14.7 /2016 [facility] HEMATOLOGY RBC 4.85 4.20 - 02/06 MH 5.40 /2016 [facility] HEMATOLOGY Hgb 12.5 12.0 - 02/06 MH 16.0 /2016 [facility] HEMATOLOGY RDW 16.3 11.5 - 02/06 MH 14.5 /2016 [facility] HEMATOLOGY MCHC 32.4 32.0 - 02/06 MH 36.0 /2016 [facility] HEMATOLOGY MPV 11.5 7.4 - 10.4 02/06 [facility] HEMATOLOGY Platelet 228 133 - 450 02/06 [facility] HEMATOLOGY MCV 79.7 80.0 - 02/06 MH 98.0 /2016 [facility] HEMATOLOGY Hct 38.7 36.0 - 02/06 48.0 /2016 [facility] HEMATOLOGY MCH 25.8 27.0 - 02/06 MH 31.0 /2016 [facility] HEMATOLOGY WBC 11.0 3.7 - 10.4 02/06 [facility] HEMATOLOGY PTT 27.7 22.9 - 02/06 MH 35.8 /2016 [facility] URINE AND UA Color Gwen 02/06 STOOL [facility] URINE AND UA <=1.0 0.1 - 1.0 02/06 [facility] Urobilinogen mg/dL /2016 [facility] URINE AND UA Spec Grav 1.030 <=1.030 02/06 STOOL [facility] URINE AND UA Nitrite Negative Negative 02/06 [facility] (02/06/17 11:37 AM) /2016 [facility] URINE AND UA Leuk Est Large Negative 02/06 [facility] *ABN* /2016 [facility] (02/06/17 11:37 AM) URINE AND UA Sq Epi Many /LPF Few /LPF 02/06 STOOL [facility] URINE AND UA WBC 5 0 - 5 02/06 STOOL [facility] URINE AND UA Bacteria Occasional None Seen 02/06 [facility] /HPF /HPF /2016 [facility] URINE AND UA Mucus Few /LPF None Seen 02/06 [facility] /LPF /2016 [facility] URINE AND UA Glucose Negative Negative 02/06 [facility] mg/dL mg/dL [facility] URINE AND UA Turbidity Marked Clear 02/06 [facility] *ABN* /2016 [facility] (02/06/17 11:37 AM) URINE AND UA Protein Negative Negative 02/06 [facility] mg/dL mg/dL [facility] URINE AND UA pH 5.0 5.0 - 8.0 02/06 STOOL [facility] URINE AND UA Ketones Negative Negative 02/06 [facility] mg/dL mg/dL [facility] URINE AND UA Blood Negative Negative 02/06 [facility] (02/06/17 11:37 AM) /2016 [facility] URINE AND UA Bili Negative Negative 02/06 [facility] *NA* /2016 [facility] (02/06/17 11:37 AM) CHEM PANEL BUN 10 7 - 22 08/22 [facility] CHEM PANEL Glucose Lvl 93 70 - 99 08/22 [facility] CHEM PANEL Potassium 4.0 3.5 - 5.1 08/22 Lvl [facility] CHEM PANEL Chloride Lvl 107 95 - 109 08/22 [facility] CHEM PANEL Calcium Lvl 9.1 8.5 - 10.5 08/22 [facility] CHEM PANEL Sodium Lvl 140 135 - 145 08/22 [facility] CHEM PANEL Creatinine 0.67 0.50 - 08/22 [facility] Lvl 1.40 /2016 [facility] CHEM PANEL CO2 26 24 - 32 08/22 [facility] CHEM PANEL eGFR 129 08/22 Comment: The [facility] eGFR is calculated using the CKD-EPI formula. In most young, healthy individuals the eGFR will be >90 mL/min/1.73m2 . The eGFR declines with age. An eGFR of 60-89 may be normal in some populations, particularly the elderly, for whom the CKD-EPI formula has not been extensively validated. Use of the eGFR is not recommended in the following populations:< br/>
Randi viduals with unstable creatinine concentration s, including patients and those with serious co-morbid conditions.<b r/>
Patie nts with extremes in muscle mass or diet.

The data above are obtained from the National Kidney Disease Education Program (NKDEP) which additionally recommends that when the eGFR is used in patients with extremes of body mass index for purposes of drug dosing, the eGFR should be multiplied by the estimated BMI. CHEM PANEL AGAP 11.0 10.0 - 08/22 MH 20.0 [facility] HEMATOLOGY MPV 10.8 7.4 - 10.4 08/22 [facility] HEMATOLOGY Platelet 196 133 - 450 08/22 [facility] HEMATOLOGY RDW 15.2 11.5 - 08/22 MH 14.5 /2016 [facility] HEMATOLOGY MCHC 33.4 32.0 - 08/22 MH 36.0 /2016 [facility] HEMATOLOGY MCH 27.8 27.0 - 08/22 MH 31.0 /2016 [facility] HEMATOLOGY MCV 83.5 80.0 - 08/22 MH 98.0 /2016 [facility] HEMATOLOGY Hgb 14.0 12.0 - 08/22 MH 16.0 [facility] HEMATOLOGY Hct 41.9 36.0 - 08/22 MH 48.0 /2016 [facility] HEMATOLOGY RBC 5.02 4.20 - 04 MH 5.40 /2016 [facility] HEMATOLOGY WBC 6.9 3.7 - 10.4 08/22 [facility] HEMATOLOGY Segs 59.3 45.0 - 08/22 MH 75.0 /2016 [facility] HEMATOLOGY Monocytes # 0.4 0.0 - 0.8 08/22 /2016 [facility] HEMATOLOGY Eosinophils 0.1 0.0 - 0.5 08/22 MH # /2016 [facility] HEMATOLOGY Basophils 0.6 0.0 - 1.0 08/22 [facility] HEMATOLOGY Segs-Bands # 4.1 1.5 - 8.1 08/22 [facility] HEMATOLOGY Lymphocytes 32.1 20.0 - 08/22 MH 40.0 /2016 [facility] HEMATOLOGY Monocytes 6.1 2.0 - 12.0 08/22 [facility] HEMATOLOGY Lymphocytes 2.2 1.0 - 5.5 08/22 MH # /2016 [facility] HEMATOLOGY Eosinophils 1.9 0.0 - 4.0 08/22 [facility] URINE AND UA Protein 100 mg/dL Negative 08/22 [facility] mg/dL [facility] URINE AND UA Glucose Negative Negative 08/22 [facility] mg/dL mg/dL [facility] URINE AND UA Ketones Negative Negative 08/22 [facility] mg/dL mg/dL [facility] URINE AND UA Bili Negative Negative 08/22 [facility] *NA* /2016 [facility] (08/22/16 10:38 AM) URINE AND UA Leuk Est Negative Negative 08/22 [facility] (08/22/16 10:38 AM) /[facility] URINE AND UA RBC >182 0 - 2 08/22 [facility] URINE AND UA Sq Epi Many /LPF Few /LPF 08/22 [facility] URINE AND UA WBC 1 0 - 5 08/22 [facility] URINE AND UA Mucus Few /LPF None Seen 08/22 [facility] /LPF /2016 [facility] URINE AND UA Bacteria Occasional None Seen 08/22 [facility] /HPF /HPF [facility] URINE AND UA Color Red 08/22 [facility] URINE AND UA <=1.0 0.1 - 1.0 08/22 [facility] Urobilinogen mg/dL /2016 [facility] URINE AND UA pH 6.0 5.0 - 8.0 08/22 [facility] URINE AND UA Spec Grav 1.025 <=1.030 08/22 [facility] URINE AND UA Turbidity Slight Clear 08/22 [facility] *ABN* /2016 [facility] (08/22/16 10:38 AM) URINE AND UA Nitrite Negative Negative 08/22 [facility] (08/22/16 10:38 AM) [facility] URINE AND UA Blood Large Negative 08/22 [facility] *ABN* /2016 [facility] (08/22/16 10:38 AM) URINE CHEM U Preg Negative Negative 08/22 (08/22/16 10:38 AM) [facility] URINE AND UA <=1.0 0.1 - 1.0 07/14 [facility] Urobilinogen mg/dL [facility] URINE AND UA RBC 2 0 - 2 07/14 [facility] URINE AND UA Renal Epi 7 <=0 /LPF 07/14 [facility] URINE AND UA Mucus Few /LPF None Seen 07/14 [facility] /LPF /2016 [facility] URINE AND UA Sq Epi Many /LPF Few /LPF 07/14 [facility] URINE AND UA Leuk Est Small Negative 07/14 [facility] *ABN* [facility] (07/13/16 6:38 PM) URINE AND UA WBC 7 0 - 5 07/14 [facility] URINE AND UA Nitrite Negative Negative 07/14 [facility] (07/13/16 6:38 PM) [facility] URINE AND UA Blood Negative Negative 07/14 [facility] (07/13/16 6:38 PM) [facility] URINE AND UA Glucose Negative Negative 07/14 [facility] mg/dL mg/dL [facility] URINE AND UA Bili Negative Negative 07/14 [facility] *NA* /2016 [facility] (07/13/16 6:38 PM) URINE AND UA Ketones Trace Negative 07/14 [facility] mg/dL mg/dL [facility] URINE AND UA Protein Negative Negative 07/14 [facility] mg/dL mg/dL [facility] URINE AND UA pH 6.0 5.0 - 8.0 07/14 [facility] URINE AND UA Spec Grav 1.027 <=1.030 07/14 [facility] URINE AND UA Turbidity Marked Clear 07/14 [facility] *ABN* [facility] (07/13/16 6:38 PM) URINE AND UA Color Yellow Yellow 07/14 [facility] *NA* /2016 [facility] (07/13/16 6:38 PM) URINE CHEM U Preg Negative Negative 07/14 (07/13/16 6:38 PM) [facility] CHEM PANEL Lipase Lvl 110 73 - 393 07/14 [facility] CHEM PANEL Amylase Lvl 42 25 - 115 07/14 [facility] CHEM PANEL Lipase Lvl 107 73 - 393 07/14 [facility] CHEM PANEL eGFR 131 07/14 [facility] Comment: The [facility] eGFR is calculated using the CKD-EPI formula. In most young, healthy individuals the eGFR will be >90 mL/min/1.73m2 . The eGFR declines with age. An eGFR of 60-89 may be normal in some populations, particularly the elderly, for whom the CKD-EPI formula has not been extensively validated. Use of the eGFR is not recommended in the following populations:< br/>
Randi viduals with unstable creatinine concentration s, including patients and those with serious co-morbid conditions.<b r/>
Patie nts with extremes in muscle mass or diet.

The data above are obtained from the National Kidney Disease Education Program (NKDEP) which additionally recommends that when the eGFR is used in patients with extremes of body mass index for purposes of drug dosing, the eGFR should be multiplied by the estimated BMI. CHEM PANEL Bili Total 0.6 0.2 - 1.3 07/14 [facility] CHEM PANEL Alk Phos 43 39 - 136 07/14 [facility] CHEM PANEL AST 15 0 - 37 07/14 [facility] CHEM PANEL ALT 22 0 - 65 07/14 [facility] CHEM PANEL Albumin Lvl 3.6 3.5 - 5.0 07/14 [facility] CHEM PANEL Calcium Lvl 8.4 8.5 - 10.5 07/14 [facility] CHEM PANEL Total 7.8 6.4 - 8.4 07/14 [facility] CHEM PANEL CO2 25 24 - 32 07/14 [facility] CHEM PANEL Creatinine 0.63 0.50 - 07/14 [facility] Lvl 1.40 [facility] CHEM PANEL Sodium Lvl 138 135 - 145 07/14 [facility] CHEM PANEL Potassium 3.7 3.5 - 5.1 07/14 [facility] CHEM PANEL Glucose Lvl 87 70 - 99 07/14 [facility] CHEM PANEL Chloride Lvl 103 95 - 109 07/14 [facility] CHEM PANEL BUN 10 7 - 22 07/14 [facility] CHEM PANEL Globulin 4.2 2.7 - 4.2 07/14 /2016 [facility] CHEM PANEL A/G Ratio 0.9 0.7 - 1.6 07/14 /2016 [facility] CHEM PANEL AGAP 13.7 10.0 - 07/14 MH 20.0 /2016 [facility] CHEM PANEL B/C Ratio 16 6 - 25 07/14 [facility] HEMATOLOGY Monocytes # 0.5 0.0 - 0.8 07/14 [facility] HEMATOLOGY Lymphocytes 1.8 1.0 - 5.5 07/14 # /2016 [facility] HEMATOLOGY Basophils # 0.1 0.0 - 0.2 07/14 [facility] HEMATOLOGY Segs-Bands # 12.5 1.5 - 8.1 07/14 [facility] HEMATOLOGY Lymphocytes 12.0 20.0 - 07/14 40.0 /2016 [facility] HEMATOLOGY Basophils 0.4 0.0 - 1.0 07/14 [facility] HEMATOLOGY Segs 84.1 45.0 - 07/14 75.0 /2016 [facility] HEMATOLOGY Monocytes 3.5 2.0 - 12.0 07/14 [facility] HEMATOLOGY RDW 17.0 11.5 - 07/14 14.5 [facility] HEMATOLOGY Platelet 212 133 - 450 07/14 [facility] HEMATOLOGY MPV 10.6 7.4 - 10.4 07/14 [facility] HEMATOLOGY RBC 5.03 4.20 - 07/14 MH 5.40 /2016 [facility] HEMATOLOGY WBC 14.9 3.7 - 10.4 07/14 /2016 [facility] HEMATOLOGY Hct 41.5 36.0 - 07/14 48.0 /2016 [facility] HEMATOLOGY Hgb 13.7 12.0 - 07/14 16.0 [facility] HEMATOLOGY MCV 82.5 80.0 - 07/14 98.0 /2017 [facility] HEMATOLOGY MCHC 33.0 32.0 - 07/14 36.0 /2016 [facility] HEMATOLOGY MCH 27.2 27.0 - 07/14 31.0 /2016 [facility] Pathology Reports No Data Provided for This Section Diagnostic Reports Report Value Date Source Brain wo contrast CT Addendum: I have reviewed th is examination and concur with the interpretation. 02/06/[address] [facility] [address] HEAD WITHOUT CONTRAST: HISTORY: New onset of seizur es. The patient had normal noncontrast brain CT on 08/22/2016. TECHNIQUE: Multislice axial acquisitions were done without contrast. Sagittal and coronal reformatted images were also obtained. FINDINGS: There is no significant parenchymal abnormality, hemorrhage, infarct, mass, or shift. The ventricles and extra-axial spaces are within normal limits. There are no significant o sseous abnormalities. There is no significant change compared to the previous exam. IMPRESSION: No acute CT abnormalities of the brain. SL DLAWRENCE-PC Brain wo contrast CT EXAM: CT BRAIN WITHOUT CONTRAST 08/22/2016 [facility] DATE: 08/22/2016 10:55 AM CDT INDICATION: - headache intermittently ADDITIONAL INFORMATION AND CT DLP: 981.84 mGy-cm . COMPARISON: None. TECHNIQUE: Routine axial CT images of the brain were obtained. IV contrast: None. FINDINGS: Non-contrast images of the h ead demonstrate no edema, hemorrhage, mass lesion or other acute intracranial abnormality. Toribio-white matter distinctio n is preserved. The ventricles are normal. The basal cisterns and sulci are normal in size. Mild chronic inflammatory ch sari of the paranasal sinus. Partial opacification of the mastoid air cells. IMPRESSION: 1. No definite acute infarct or intracranial hem orrhage detected. If there is further concern for intracranial pathology or acute stroke, MRI of the brain may be performed for complete assessment. SL: [id number] Consultation Notes No Data Provided for This Section Discharge Summaries No Data Provided for This Section History and Physicals No Data Provided for This Section Vital Signs Vital Sign Value Date Comments Source Temperature Oral (F) 98.3 F 02/06/2017 [facility] Systolic (mm Hg) 109 02/06/2017 [facility] Diastolic (mm Hg) 58 02/06/2017 [facility] st Respitory Rate 21 02/06/2017 [facility] Systolic (mm Hg) 109 [facility] 89 02/06/2017 [facility] st Respitory Rate 15 02/06/2017 [facility] Height 167.64 cm 02/06/2017 [facility] BMI Calculated 30.73 02/06/2017 [facility] Weight 86.364 02/06/2017 [facility] Heart Rate 81 02/06/2017 [facility] Temperature Oral (F) 97.8 F 02/06/2017 [facility] Respitory Rate 18 02/06/2017 [facility] Systolic (mm Hg) 128 02/06/2017 [facility] Diastolic (mm Hg) 80 02/06/[address] Heart Rate 75 08/22/2016 [facility] Respitory Rate 17 08/22/2016 [facility] Systolic (mm Hg) 119 08/22/2016 [facility] Diastolic (mm Hg) 72 08/22/[address] Temperature Oral (F) 97.6 F 08/22/2016 [facility] Systolic (mm Hg) 124 08/22/2016 [facility] Diastolic (mm Hg) 84 08/22/[address] Heart Rate 91 08/22/2016 [facility] Respitory Rate 18 08/22/2016 [facility] BMI Calculated 31.54 08/22/2016 [facility] Weight 88.636 08/22/2016 [facility] Height 167.64 cm 08/22/2016 [facility] Temperature Oral (F) 97.8 F 08/22/2016 [facility] Respitory Rate 16 07/14/2016 [facility] Heart Rate 71 07/14/2016 [facility] Systolic (mm Hg) 108 07/14/2016 [facility] Diastolic (mm Hg) 71 07/14/[address] Respitory Rate 16 07/14/2016 [facility] Systolic (mm Hg) 112 07/14/2016 [facility] Diastolic (mm Hg) 67 07/14/[address] Temperature Oral (F) 97.8 F 07/14/2016 [facility] Heart Rate 61 07/14/2016 [facility] BMI Calculated 31.54 07/13/2016 [facility] Height 167.64 cm 07/13/2016 [facility] Weight 88.636 07/13/2016 [facility] Respitory Rate 17 07/13/2016 [facility] Heart Rate 110 07/13/2016 [facility] Temperature Oral (F) 98.2 F 07/13/2016 [facility] Systolic (mm Hg) 126 07/13/2016 [facility] Diastolic (mm Hg) 89 07/13/[address] Encounters Location Location Encounter Encounter Reason Attending ADM DC Stat us Source Details Type Number For Provider Date [facility] [id number] [facility] 07/13 07/14 Dagoberto [place] /2016 [facility] [id number] Titus Fay 08/22 08/22 Dagoberto [facility] [id number] Mauricio Iheme 02/06 02/06 [place] /2016 [facility] Procedures No Data Provided for This Section Assessment and Plan No Data Provided for This Section Plan of Care No Data Provided for This Section Social History Social History Date Source Social History TypeResponse 02/06/2017 [facility] Substance Abuse Use: Current. Type: Marijuana. Alcohol Current Smoking Status Former smoker; Exposure to Tobacco Smoke None; Cigarette Smoking Last 365 Days No; Reg Smoking Cessation Counseling No Family History No Data Provided for This Section Advance Directives No Data Provided for This Section Functional Status No Data Provided for This Section
--- OUTSIDE RECORDS SUMMARY | 2020-02-12 18:38 | XMS REPORT | Continuity of Care Document ---
:2000 Author Organization [facility] t Address [address] [place] [address] Care Team Providers Name Role Phone Venkatesh Wright Attending Clinician Rohit Fay Attending Clinician Moises Guaman Attending Clinician [phone] Problems Condition Condition Condition Status Onset Resolution Last Treating Co mments Source Name Details Category Date Date Treatment Clinician Date SEIZURE Diagnosis Active 2017-02-19 Me moria 02-06 15:24:00 l SEIZURE 00:00: Dagoberto 00 Active 02/06/[address] Diagnosis Active 2016-08-22 Mem oria SENT-HEAD 08-22 11:14:[address] 00:00: Carney SENT-HEAD 00 PAIN Active 08/22/2016 [facility] ABD PAIN/ Diagnosis Active 2016-07-13 Memoria VOMITTING 07-13 16:12:00 l ABD 00:00: Dagoberto PAIN/ 00 VOMITTING Active 07/13/2016 [facility] Unspecifie Problem 2017-02-09 2017-02-09 Memoria d 02-06 01:26:49 01:26:49 l convulsion 05:00: Jm medina s Unspecifie 00 d convulsion s 02/06/2017 02/09/2017 [facility] Orthostati Problem 2016-2016-08-25 2016-08-25 Memoria c 4-01 01:24:59 01:24:59 l hypotensio 05:00: Jm medina n Orthostati 00 c hypotensio n 08/22/2016 08/25/2016 [facility] Headache Problem 2016-2016-08-25 2016-08-25 Memoria 4-01 01:24:59 01:24:59 l Headache 05:00: Jm n 00 08/22/2016 08/25/2016 [facility] Discharge Problem 2016-2016-07-16 2016-07-16 Memoria Diagnosis: 2- 04:42:07 04:42:07 l Nausea 06:00: Dagoberto vomiting Discharge 00 and Diagnosis: diarrhea Nausea vomiting and diarrhea 7 07/16/2016 [facility] Discharge Problem 2016-2016-07-16 2016-07-16 Memoria Diagnosis: 2- 04:42:07 04:42:07 l Abdominal 06:00: Dagoberto pain, Discharge 00 acute Diagnosis: Abdominal pain, acute 07/13/2016 07/16/2016 [facility] Allergies, Adverse Reactions, Alerts This patient has no known allergies or adverse reactions. Social History Social Habit Start Date Stop Date Quantity Comments Source Social History 2017-02-06 2017-02-06 [facility] 17:20:23 17:20:23 Medications Ordered Filled Start Stop Current Ordering Indication Dosage Frequency Signature Comments Components Source Medication Medication Date Date Medication? Clinician (SIG) Name Name Sodium No 1,000 mL, Memori a Chloride -16 1,000 l 0.9% 16:19: ml/hr, Carney (Bolus) IV 00 Infuse Over: 1 hr, Route: IV, 1,000, Drug form: INJ, ONCE, Priority: STAT, Dosing Weight 86.364 kg, Start date: 02/06/17 11:19:00 CDT, Duration: 1 doses or times, Stop date: 02/06/17 11:19:00 CDT Saline No Notes: Memoria Flush 0.9% 9-16 (Same as: l 16:19: BD Dagoberto 00 Posiflush) ibuprofen No 800 mg = 1 Me moria 800 mg oral 4-01 tab, PO, l tablet 17:24: Q8H, PRN Dagoberto 00 Pain, Take with food, # 30 tab, 0 Refill(s) Sodium 2016- No 1,000 mL, Memori a Chloride 4-01 Infuse l 0.154 16:35: Over: 0.5 Dagoberto MEQ/ML 00 hr, Route: Injectable IV, Drug Solution form: INJ, ONCE, Priority: STAT, Dosing Weight 88.636 kg, Start date: 08/22/16 11:35:00 CDT, Stop date: 08/22/16 11:35:00 CDT Ondansetron Yes 4 mg = 1 Me moria 4 MG 2-21 tab, PO, l Disintegrat 01:55: TID, PRN He rmann ing Tablet 00 Nausea / Vomiting, Dissolve tab under tongue, X 3 day, # 10 tab, 0 Refill(s) Famotidine No Notes: Memor ia 2-20 (Same as: l 23:48: Pepcid) Carney 00 Can be dilute in 5-10cc NS IVP: Slow IV push over at least 2 minutes. GI cocktail No Notes: David kaitlynn 2-20 G.I. l 23:48: Cocktail = Carney 00 antacid with simethicon e 22.5 mL - lidocaine viscous 7.5 mL Ondansetron No Notes: David kaitlynn 2-20 (Same as: l 23:48: Zofran) Dagoberto 00 MEDICATION WASTE Product Size: 4 mg Product Wasted: ___ mg Sodium No 1,000 mL, Memori a Chloride 2-20 1000 l 0.154 23:47: ml/hr, Carney MEQ/ML 00 Infuse Injectable Over: 1 Solution hr, Route: IV, 1,000, Drug form: INJ, ONCE, Priority: STAT, Dosing Weight 88.636 kg, Start date: 07/13/16 17:47:00 [employer], Duration: 1 doses or times, Stop date: 07/13/16 17:47:00 [employer] Vital Signs Vital Name Observation Time Observation Value Comments Source Temperature Oral (F) 2017-02-06 19:10:00 98.3 F [facility] Systolic (mm Hg) 2017-02-06 19:10:00 David rial [place] Diastolic (mm Hg) 2017-02-06 19:10:00 Mem orial [place] Respitory Rate 2017-02-06 19:10:00 Memori al Dagoberto Systolic (mm Hg) 2017-02-06 17:30:00 David rial Dag[place]to Diastolic (mm Hg) 2017-02-06 17:30:00 Mem orial [place] Respitory Rate 2017-02-06 17:30:00 Memori al [place] Height 2017-02-06 15:44:00 167.64 cm [facility] [place] BMI Calculated 2017-02-06 15:44:00 Memori al [place] Weight 2017-02-06 15:44:00 [facility] [place] Heart Rate 2017-02-06 15:44:00 [facility] [place] Temperature Oral (F) 2017-02-06 15:44:00 97.8 F [facility] [place] Respitory Rate 2017-02-06 15:44:00 Memori al [place] Systolic (mm Hg) 2017-02-06 15:44:00 David rial [place] Diastolic (mm Hg) 2017-02-06 15:44:00 Mem orial [place] Heart Rate 2016-08-22 18:06:00 [facility] [place] Respitory Rate 2016-08-22 18:06:00 Memori al [place] Systolic (mm Hg) 2016-08-22 18:06:00 David rial [place] Diastolic (mm Hg) 2016-08-22 18:06:00 Mem orial [place] Temperature Oral (F) 2016-08-22 18:06:00 97.6 F [facility] [place]to Systolic (mm Hg) 2016-08-22 14:58:00 David rial Dagoberto Diastolic (mm Hg) 2016-08-22 14:58:00 Mem orial [place] Heart Rate 2016-08-22 14:58:00 [facility] [place] Respitory Rate 2016-08-22 14:58:00 Memori al [place] BMI Calculated 2016-08-22 14:58:00 Memori al [place] Weight 2016-08-22 14:58:00 [facility] [place] Height 2016-08-22 14:58:00 167.64 cm [facility] [place] Temperature Oral (F) 2016-08-22 14:58:00 97.8 F [facility] [place] Respitory Rate 2016-07-14 02:00:00 Memori al [place] Heart Rate 2016-07-14 02:00:00 [facility] [place] Systolic (mm Hg) 2016-07-14 02:00:00 David rial [place] Diastolic (mm Hg) 2016-07-14 02:00:00 Mem orial [place] Respitory Rate 2016-07-14 01:41:00 Memori al [place]to Systolic (mm Hg) 2016-07-14 01:41:00 David rial Dagoberto Diastolic (mm Hg) 2016-07-14 01:41:00 Mem orial [place] Temperature Oral (F) 2016-07-14 01:41:00 97.8 F [facility] [place] Heart Rate 2016-07-14 01:41:00 [facility] [place] BMI Calculated 2016-07-13 20:47:00 Memori al [place] Height 2016-07-13 20:47:00 167.64 cm [facility] [place] Weight 2016-07-13 20:47:00 [facility] [place] Respitory Rate 2016-07-13 20:47:00 Memori al [place] Heart Rate 2016-07-13 20:47:00 [facility] [place] Temperature Oral (F) 2016-07-13 20:47:00 98.2 F [facility] [place]to Systolic (mm Hg) 2016-07-13 20:47:00 David rial Dagoberto Diastolic (mm Hg) 2016-07-13 20:47:00 Mem orial Dagoberto Procedures This patient has no known procedures. Encounters Start End Encounter Admission Attending Care Care Encounter Source Date/Time Date/Time Type Type Clinicians Facility Department ID 2017-02-06 2017-02-06 [id number] 10:39:00 15:00:00 U 02 2016-08-22 2016-08-22 Outpatient Fay, [place] [id number] 09:56:00 13:17:00 Reeva 01 Rohit 2016-07-13 2016-07-13 Outpatient Guaman, [facility] [id number] 14:38:00 20:00:00 Saw 00 Moises Results Test Description Test Time Test Comments Results Result Sourc e Comments CHEM PANEL 2017-02-06 134 [facility] 16:37:00 [place] CHEM PANEL 2017-02-06 13 [facility] 16:37:00 [place] CHEM PANEL 2017-02-06 48 [facility] 16:37:00 Dagoberto CHEM PANEL 2017-02-06 22 [facility] 16:37:00 [place] CHEM PANEL 2017-02-06 3.3 [facility] 16:37:00 [place]to CHEM PANEL 2017-02-06 0.58 [facility] 16:37:00 [place] CHEM PANEL 2017-02-06 3.7 [facility] 16:37:00 Dagoberto CHEM PANEL 2017-02-06 13 [facility] 16:37:00 Dag[place]to CHEM PANEL 2017-02-06 137 [facility] 16:37:00 [place] CHEM PANEL 2017-02-06 0.3 [facility] 16:37:00 Dag[place]to CHEM PANEL 2017-02-06 105 [facility] 16:37:00 Dag[place]to CHEM PANEL 2017-02-06 8.3 [facility] 16:37:00 [place] CHEM PANEL 2017-02-06 7.5 [facility] 16:37:00 [place] CHEM PANEL 2017-02-06 25 [facility] 16:37:00 [place] CHEM PANEL 2017-02-06 88 [facility] 16:37:00 Dagoberto CHEM PANEL 2017-02-06 22 [facility] 16:37:00 Dagoberto CHEM PANEL 2017-02-06 4.2 [facility] 16:37:00 [place] CHEM PANEL 2017-02-06 10.7 [facility] 16:37:00 [place] CHEM PANEL 2017-02-06 0.8 [facility] 16:37:00 [place] DRUG SCREEN 2017-02-06 Negative [facility] 16:37:00 *NA*(02/06/17 [place] 11:37 AM) DRUG SCREEN 2017-02-06 Negative [facility] 16:37:00 *NA*(02/06/17 Dagoberto 11:37 AM) DRUG SCREEN 2017-02-06 Negative [facility] 16:37:00 *NA*(02/06/17 [place] 11:37 AM) DRUG SCREEN 2017-02-06 Positive [facility] 16:37:00 *ABN*(02/06/17 [place] 11:37 AM) DRUG SCREEN 2017-02-06 Negative [facility] 16:37:00 *NA*(02/06/17 [place] 11:37 AM) DRUG SCREEN 2017-02-06 Negative [facility] 16:37:00 *NA*(02/06/17 [place] 11:37 AM) DRUG SCREEN 2017-02-06 See Note [facility] 16:37:00 (02/06/17 11:37 [place] AM) DRUG SCREEN 2017-02-06 Negative [facility] 16:37:00 *NA*(02/06/17 [place] 11:37 AM) ENDOCRINOLOGY 2017-02-06 Negative [facility] 16:37:00 *NA*(02/06/17 Dagoberto 11:37 AM) HEMATOLOGY 2017-02-06 0.2 [facility] 16:37:00 Dag[place]to HEMATOLOGY 2017-02-06 0.7 [facility] 16:37:00 Dag[place]to HEMATOLOGY 2017-02-06 0.1 [facility] 16:37:00 [place] HEMATOLOGY 2017-02-06 2.9 [facility] 16:37:00 Dagoberto HEMATOLOGY 2017-02-06 7.2 [facility] 16:37:00 Dag[place]to HEMATOLOGY 2017-02-06 5.9 [facility] 16:37:00 [place] HEMATOLOGY 2017-02-06 26.2 [facility] 16:37:00 [place] HEMATOLOGY 2017-02-06 0.9 [facility] 16:37:00 [place] HEMATOLOGY 2017-02-06 1.5 [facility] 16:37:00 Dag[place]to HEMATOLOGY 2017-02-06 65.5 [facility] 16:37:00 Dag[place]to HEMATOLOGY 2017-02-06 0.93 [facility] 16:37:00 Dagoberto HEMATOLOGY 2017-02-06 16:37:00 Test Item Value Reference Range Interpretation Comme nts PT (test code = PT) 12.7 s 12.0-14.7 [facility] OtweyliJTXJCDHBOO8287-23-65 16:37:004.85[facility]ann[facility]OLOGY 2017-02-06 16:37:0012.5[facility] RkxatejESKSWBQQFN5951-52-52 16:37:0016.3[facility] OknyatkDFLSLXCKBD7480-51-10 16:37:0032.4[facility] MuoiwksTQMVCOYZPQ8001-04-07 16:37:0011.5[facility] EktqoozCXIIZKSLCU8458-62-06 16:37:88873Lxfazkvb Dagoberto KJPQUGJPTI4428-98-06 16:37:0079.7[facility] BbofjxhJBCDMEUSEA6347-86-16 16:37:00 38.7[facility] KeqtuhnPBFBGOKJOD4588-95-37 16:37:00 Test Item Value Reference Range Interpretation Comments MCH (test code = MCH) 25.8 pg 27.0-31.0 [facility] PrrxsqoMSWVYEGUOJ3249-50-58 16:37:0011.0[facility]annHEMATOLOGY 2017-02-06 16:37:00 Test Item Value Reference Range Interpretation Comments PTT (test code = PTT) 27.7 s 22.9-35.8 [facility] SGCRH1739-97-44 16:37:001.030[facility] QMVAR9830-38-07 16:37:00Negative (02/06/17 11:37 AM)[facility] EEFFN6769-97-77 16:37:00Large *ABN*(02/06/17 11:37 AM)[facility] YAIBA5037-58-59 16:37:005[facility] XOMYQ6205-15-25 16:37:00 Marked *ABN*(02/06/17 11:37 AM)[facility] MHYAA9298-31-67 16:37:00 5.0[facility] CBNVE9037-70-34 16:37:00Negative (02/06/17 11:37 AM) [facility] WBPIZ3846-72-07 16:37:00Negative *NA*(02/06/17 11:37 AM)[facility]annCHE[facility] EMCAL2450-27-68 15:38:0010[facility]annCHEM PANEL 2016-08-22 15:38:0093[facility]annCHE[facility] VRDCS5718-27-63 15:38:004.0[facility]annCHEM KCAPY6288-21-96 15:38:56449Narytwkq HermannCHEM ECENI3164-09-15 15:38:009.1[facility]annCHE[facility] AHXHS6163-58-88 15:38:40939Npmueqmf [facility]annCHE[facility] CIJOJ2865-22-84 15:38:000.67[facility]annCHE[facility] DIOPJ5299-43-86 15:38:0026 [facility]annCHE[facility] SJHDN0465-17-42 15:38:70142Onmsgxql HermannCHEM PANEL 2016-08-22 15:38:0011.0[facility] DekcemtZFUATMAVEY5025-24-82 15:38:0010.8[facility] IgxypmwGEMLIIAOZW0488-89-07 15:38:26282Srugfkre HcdogvgXIBMVEDTZZ7971-23-55 15:38:0015.2[facility] GgimiklLEEIAXCXRK1820-82-89 15:38:0033.4[facility] IMUCVFSGVV6594-62-19 15:38:00 Test Item Value Reference Range Interpretation Comments MCH (test code = MCH) 27.8 pg 27.0-31.0 [facility] BmrijeeTZMMXLRMPC4523-10-09 15:38:0083.5[facility]annHEMATOLOGY 2016-08-22 15:38:0014.0[facility] DdyzssfRKKFPREHIP3920-09-20 15:38:0041.9[facility] YnlluftBAKGMMKZKB3464-94-56 15:38:005.02[facility] MpytfpbMUXTBFCSGW9144-09-23 15:38:006.9[facility] YturtheOUBTBVRTAY5597-16-82 15:38:0059.3[facility]to UEDRWUILPK8603-15-14 15:38:000.4[facility] MrvdlhpMHAVICFPYZ8999-44-11 15:38:000.1 [facility] RinxjyeKGUWTJFTWE6692-77-77 15:38:000.6[facility]annHEMATOLOGY 2016-08-22 15:38:004.1[facility] IzcfqbwNYMXDVTXYG6060-28-61 15:38:0032.1[facility] WrkorkkOYWXQBTLUZ3144-71-58 15:38:006.1[facility] EvvnxiiQKCRXWEGUA1832-41-47 15:38:002.2[facility] OdyffnkYEPISOZGFN4262-16-66 15:38:001.9[facility] ONTFB8217-04-77 15:38:00Negative *NA*(08/22/16 10:38 AM)[facility] HDMMP6014-84-26 15:38:00Negative (08/22/16 10:38 AM)[facility] FCDSA1141-32-35 15:38:00>182[facility] JGXWJ9225-12-21 15:38:001[facility] TKBTF6888-07-87 15:38:006.0[facility] URINE AND NFHXW5150-64-19 15:38:001.025[facility] EWDUD0843-32-39 15:38:00Slight *ABN*(08/22/16 10:38 AM)[facility] ZIXXW5214-06-29 15:38:00Negative (08/22/16 10:38 AM)[facility] QBHKT2222-64-20 15:38:00Large *ABN*(08/22/16 10:38 AM)[facility] ERUG5965-72-62 15:38:00Negative (08/22/16 10:38 AM)[facility] OZDKZ1338-33-01 00:38:002[facility] GYFAV4473-91-22 00:38:007[facility] URINE AND HZXYP5046-64-17 00:38:00Small *ABN*(07/13/16 6:38 PM)[facility] URINE AND LRAMV9280-45-58 00:38:007[facility] QUKKO0753-00-26 00:38:00Negative (07/13/16 6:38 PM)[facility] GMMNI0254-95-27 00:38:00Negative (07/13/16 6:38 PM)[facility] ACJXE4740-62-47 00:38:00Negative *NA*(07/13/16 6:38 PM)[facility] ARMSG0480-41-93 00:38:006.0[facility] CDQRR0041-88-07 00:38:001.027[facility] NGFAI8867-21-23 00:38:00Marked *ABN*(07/13/16 6:38 PM)[facility] OBMVL6791-32-45 00:38:00Yellow *NA*(07/13/16 6:38 PM)[facility] DYGL8312-51-49 00:38:00Negative (07/13/16 6:38 PM)[facility] CHEM KKZYZ5419-56-80 00:27:90123Blqgzczm HermannCHEM KLLYK2783-47-65 00:27:0042 [facility]annCHEM AGXSN8396-65-99 00:27:48249Xvuoyyoj HermannCHEM PANEL 2016-07-14 00:27:30116Ctpnmfbs HermannCHEM WYHEH0371-61-61 00:27:000.6[facility]annCHEM PWUXV5048-10-60 00:27:0043[facility]annCHEM UWBXA9396-46-93 00:27:0015[facility]annCHEM CRRYQ2380-41-21 00:27:0022[facility]annCHEM QTILX9795-67-35 00:27:003.6[facility]annCHEM YROEB8486-84-52 00:27:008.4 [facility]annCHE[facility] FNIAG5790-01-57 00:27:007.8[facility]annCHEM PANEL 2016-07-14 00:27:0025[facility]annCHEM QMSFJ3943-12-45 00:27:000.63[facility]annCHEM NXUSD3236-53-01 00:27:34981Nujapksd HermannCHEM VSHEF9257-25-35 00:27:003.7[facility]annCHEM EWARC9974-83-03 00:27:0087[facility]annCHEM KUMFE6501-58-03 00:27:61678Inwklozq HermannCHEM YTIWF5850-82-68 00:27:0010 [facility]annCHE[facility] RYIMJ4794-99-78 00:27:004.2[facility]annCHEM PANEL 2016-07-14 00:27:000.9[facility]annCHEM WSWGD4976-66-09 00:27:0013.7[facility]annCHEM ZLZTN8743-39-18 00:27:0016[facility] LzedwgbUOOOOFJSVY8946-87-31 00:27:000.5[facility] SfuzxaaLFLUTLEHGG6459-60-31 00:27:001.8[facility] FRPGYVXKCT2369-53-27 00:27:000.1[facility] AvvydzzFMCSOIRVMV1964-68-48 00:27:00 12.5[facility] RvaojdtQJAHJNQKNR5431-78-20 00:27:0012.0[facility]annHEMATOLOGY 2016-07-14 00:27:000.4[facility] CurtfkjZEJMKHKQWP9262-73-76 00:27:0084.1[facility] UpyvpvcSKYPCELKAB1980-85-64 00:27:003.5[facility] FegjddkEEOLBRDTCW0058-45-26 00:27:0017.0[facility] DjhtufnEYCMBKQYFJ1127-85-06 00:27:73731Vthjjgwq Dagoberto ZPTZLHHYZA7794-91-48 00:27:0010.6[facility] LydxlvrSWPQOSZPVN8647-94-60 00:27:00 5.03[facility] EuqglkgKQQJTGPURZ3729-23-04 00:27:0014.9[facility]annHEMATOLOGY 2016-07-14 00:27:0041.5[facility] JwydmkjPLNCHRRBRH4449-75-00 00:27:0013.7[facility] DxbuqrcUWTNMNUPHO4272-85-71 00:27:0082.5[facility] SfvjoagOGLVQJFYNS2040-54-78 00:27:0033.0[facility] ImqmlihJFVGEPMCBK9640-06-52 00:27:00 Test Item Value Reference Range Interpretation Comments MCH (test code = MCH) 27.2 pg 27.0-31.0 [facility]
[2020-02-12] MEDS ORDERED: DERMABOND SKIN ADHESIVE TOP ONE (19:37)
[2020-02-12] MEDS ORDERED: TETANUS & DIPHTHERIA TOX,ADULT 0.5 ML VIAL ONE (19:37)
--- NOTE | 2020-02-12 19:46 | EDPHYS ---
Physician Documentation [facility] Name: Abi Reynolds Age: 20 yrs Sex: Female : 2000 Arrival Date: 02/12/2020 Time: 18:36 Bed 5 Private MD: ED Physician Pete Reagan HPI: 02/11 19:42 This 20 yrs old Female presents to ER via Ambulatory with complaints of jr8 Finger Injury - Laceration. 19:42 Onset: The symptoms/episode began/occurred acutely, today. The patient has not jr8 experienced similar symptoms in the past. The patient has not recently seen a physician. Patient was cutting paper and lacerated index finger. Could not stop it from bleeding . 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 - Social history:: Smoking status: Reported history of juuling and/or vaping. Patient/guardian denies using tobacco, but has a distant history of tobacco abuse. ROS: 19:42 Eyes: Negative for injury, pain, redness, and discharge, ENT: Negative for injury, jr8 pain, and discharge, Neck: Negative for injury, pain, and swelling, Cardiovascular: Negative for chest pain, palpitations, and edema, Respiratory: Negative for shortness of breath, cough, wheezing, and pleuritic chest pain, Abdomen/GI: Negative for abdominal pain, nausea, vomiting, diarrhea, and constipation, Back: Negative for injury and pain, MS/Extremity: Negative for injury and deformity, Neuro: Negative for headache, weakness, numbness, tingling, and seizure. 19:42 Skin: Positive for laceration(s), of the left hand. Exam: 19:43 Constitutional: This is a well developed, well nourished patient who is awake, alert, jr8 and in no acute distress. Cardiovascular: Regular rate and rhythm with a normal S1 and S2. No gallops, murmurs, or rubs. Normal PMI, no JVD. No pulse deficits. Respiratory: Lungs have equal breath sounds bilaterally, clear to auscultation and percussion. No rales, rhonchi or wheezes noted. No increased work of breathing, no retractions or nasal flaring. MS/ Extremity: Pulses equal, no cyanosis. Neurovascular intact. Full, normal range of motion. Neuro: Awake and alert, GCS 15, oriented to person, place, time, and situation. Cranial nerves II-XII grossly intact. Motor strength 5/5 in all extremities. Sensory grossly intact. Cerebellar exam normal. Normal gait. 19:43 Skin: injury, laceration(s), the wound is approximately 2 cm(s), with a depth of .2 cm(s), of the 2nd digit left hand dorsal aspect without envolvement of nail , that can be described as no foreign body, irregular, with mild bleeding. Vital Signs: 18:57 BP 109 / 70; Pulse 101; Resp 18 S; Temp 97.2(O); Pulse Ox 99% on R/A; Weight 77.11 kg ca1 (R); Height 5 ft. 6 in. (167.64 cm) (R); 18:57 Body Mass Index 27.44 (77.11 kg, 167.64 cm) ca1 Laceration: 19:43 Wound Repair of 2cm ( 0.8in ) partial thickness laceration to left hand. Irregularly jr8 shaped.. Skin/tissue flap noted.. Minimal bleeding noted.. Distal neuro/vascular/tendon intact. Wound prep: Moderate cleansing with hibiclenz, Wound explored moderately. Skin closed with 1 thin layer Adhesive skin closure using staple gun. Patient tolerated well. MDM: 19:08 Patient medically screened. jr8 19:43 Data reviewed: vital signs, nurses notes, and as a result, I will discharge patient. jr8 Data interpreted: Pulse oximetry: on room air is 99 %. Interpretation: normal. Counseling: I had a detailed discussion with the patient and/or guardian regarding: the historical points, exam findings, and any diagnostic results supporting the discharge/admit diagnosis, the need for outpatient follow up, a family practitioner, to return to the emergency department if symptoms worsen or persist or if there are any questions or concerns that arise at home. 02/11 19:35 Order name: Wound Care; Complete Time: 19:36 wh Administered Medications: 19:35 Drug: Tetanus-Diphtheria Toxoid Adult 0.5 ml {Orthopedic Shoes Salesperson: Ryla. Exp: 07/13/2022. Lot #: [id number]. } Route: IM; Site: right deltoid; Disposition: 02/12 06:45 Co-signature as Attending Physician, Pete Reagan MD I agree with the assessment and [facility] plan of care. Disposition: 02/12/20 19:45 Discharged to Home. Impression: Laceration without foreign body of finger without damage to nail. - Condition is Stable. - Discharge Instructions: Laceration Care, Adult. - Medication Reconciliation Form, Thank You Letter, Antibiotic Education, Prescription Opioid Use form. - Follow up: Private Physician; When: As needed; Reason: Wound Recheck, Recheck today's complaints, Continuance of care, Re-evaluation by your physician. - Problem is new. - Symptoms have improved. Signatures: Joselyn Muñoz RN RN bb Varun Ellis PA PA jr8 Mayra Hooks Terrence, MD MD [facility] Radha Arreguin RN RN ca1 Corrections: (The following items were deleted from the chart) 02/11 19:43 19:42 Skin: Positive for laceration(s), of the right hand, jr8 jr8 20:01 19:45 02/12/2020 19:45 Discharged to Home. Impression: Laceration without foreign body bb of finger without damage to nail. Condition is Stable. Forms are Medication Reconciliation Form, Thank You Letter, Antibiotic Education, Prescription Opioid Use. Follow up: Private Physician; When: As needed; Reason: Wound Recheck, Recheck today's complaints, Continuance of care, Re-evaluation by your physician. Problem is new. Symptoms have improved. jr8
--- NOTE | 2020-02-12 19:46 | ER ---
Nurse's Notes [facility] Name: Abi Reynolds Age: 20 yrs Sex: Female : 2000 Arrival Date: 02/12/2020 Time: 18:36 Bed 5 Private MD: Diagnosis: Laceration without foreign body of finger without damage to nail Presentation: 02/11 18:57 Chief complaint: Patient states: Lac on 2nd digit, L hand by a scissor <1hr ago. ca1 Coronavirus screen: Client denies travel out of the [place] in the last 14 days. At this time, the client does not indicate any symptoms associated with coronavirus-19. Ebola Screen: Patient negative for fever greater than or equal to 101.5 degrees Fahrenheit, and additional compatible Ebola Virus Disease symptoms Patient denies exposure to infectious person. Patient denies travel to an Ebola-affected area in the 21 days before illness onset. No symptoms or risks identified at this time. Initial Sepsis Screen: Does the patient meet any 2 criteria? No. Patient's initial sepsis screen is negative. Does the patient have a suspected source of infection? No. Patient's initial sepsis screen is negative. Risk Assessment: Do you want to hurt yourself or someone else? Patient reports no desire to harm self or others. Onset of symptoms was February 12, 2020. 18:57 Method Of Arrival: Ambulatory ca1 18:57 Acuity: MALINA 4 ca1 Triage Assessment: 19:59 Injury Description: Laceration sustained to RIGHT FOREFINGER. 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 - Social history:: Smoking status: Reported history of juuling and/or vaping. Patient/guardian denies using tobacco, but has a distant history of tobacco abuse. Screenin:59 Abuse screen: Denies threats or abuse. Nutritional screening: No deficits noted. bb Tuberculosis screening: No symptoms or risk factors identified. Fall Risk None identified. Assessment: 19:58 General: Appears in no apparent distress. Behavior is calm, cooperative. Pain: Denies bb pain. Neuro: Level of Consciousness is awake, alert, obeys commands, Oriented to person, place, time, situation. Cardiovascular: No deficits noted. Respiratory: Airway is patent Respiratory effort is even, unlabored. GI: No signs and/or symptoms were reported involving the gastrointestinal system. Derm: Wound noted right hand. Musculoskeletal: Circulation, motion, and sensation intact. 20:00 Reassessment: Patient is alert, oriented x 3, equal unlabored respirations, skin bb warm/dry/pink. dermabond intact, bandage to right forefinger in place. Pt verbalized understanding of and agrees to plan of care discharge instructions given pt ambulated with steady gait to exit accompanied by friend. Vital Signs: 18:57 BP 109 / 70; Pulse 101; Resp 18 S; Temp 97.2(O); Pulse Ox 99% on R/A; Weight 77.11 kg ca1 (R); Height 5 ft. 6 in. (167.64 cm) (R); 18:57 Body Mass Index 27.44 (77.11 kg, 167.64 cm) ca1 ED Course: 18:36 Patient arrived in ED. ds1 18:58 Triage completed. ca1 19:00 Arm band placed on right wrist. ca1 19:04 Eduardo Henson RN is Primary Nurse. rv 19:07 Varun Ellis PA is PHCP. jr8 19:07 Pete Reagan MD is Attending Physician. jr8 19:34 Mayra Hooks is Primary Nurse. wh 19:59 Patient has correct armband on for positive identification. bb 20:01 No provider procedures requiring assistance completed. Patient did not have IV access bb during this emergency room visit. Administered Medications: 19:35 Drug: Tetanus-Diphtheria Toxoid Adult 0.5 ml {Statistical Secretary: [employer]. Exp: wh 07/13/2022. Lot #: [id number]. } Route: IM; Site: right deltoid; Outcome: 19:45 Discharge ordered by . jr8 20:01 Discharged to home ambulatory, with friend. bb 20:01 Condition: stable 20:01 Discharge instructions given to patient, Instructed on discharge instructions, follow up and referral plans. wound care, Demonstrated understanding of instructions, follow-up care, wound care. 20:01 Patient left the ED. bb Signatures: Davina Mendoza ds1 Joselyn Muñoz RN RN bb Varun Ellis PA PA jr8 Mayra Hooks Ronaldo, RN RN rv AcRadha gonsalves RN RN ca1 Corrections: (The following items were deleted from the chart) 19:00 19:00 LMP 01/27/2020 ca1 ca1
== END 2020-02-12 20:01 | disposition home or self-care (01) ==
LOC: ER 18:33
PROC: 0JQK0ZZ Repair Left Hand Subcutaneous Tissue and Fascia, Open Approach (ICD-10-PCS; principal; 2020-02-12)
DX: S61.211A Laceration without foreign body of left index finger without damage to nail, initial encounter (principal); W26.9XXA Contact with unspecified sharp object(s), initial encounter; Y93.89 Activity, other specified; Y92.9 Unspecified place or not applicable; Z23 Encounter for immunization
CPT/HCPCS: 90471; 90714; 99283

== ENCOUNTER 2020-02-13 10:04 | Emergency (ER) | payer SELFPAY ==
--- OUTSIDE RECORDS SUMMARY | 2020-02-13 10:06 | XMS REPORT | Continuity of Care Document ---
:2000 Author Organization [employer] Information [facility] Care Team Providers Name Role Phone CDP Unavailable Un available Problems Problem Status Onset [...] oral tablet tab, PO, Q8H, [facility] Pain, Take with food, # [...] Famotidine Notes: (Same Inactive as: Pepcid) 2016 [facility] Can be dilute in 5-10cc NS IVP: Slow IV push over at least 2 minutes. GI cocktail Notes: G.I. Inactive Cocktail = 2016 [facility] antacid with simethicone 22.5 mL - lidocaine viscous 7.5 mL Ondansetron Notes: (Same Inactive as: Zofran) 2016 [facility] MEDICATION WASTE Product Size: 4 mg Product Wasted: ___ mg Sodium Chloride 1,000 mL, Inactive 0.154 MEQ/ML 1000 ml/hr, 2016 [facility] Injectable Infuse Over: Solution 1 hr, Route: IV, 1,000, Drug form: INJ, ONCE, Priority: STAT, Dosing Weight 88.636 kg, Start date: 07/13/16 17:47:00 POLITICAL ANTHROPOLOGIST, Duration: 1 doses or times, Stop date: 07/13/16 17:47:00 POLITICAL ANTHROPOLOGIST Allergies, Adverse Reactions, Alerts No Known Medication Allergies Immunizations No Data Provided for This Section Results Order Name Results Value Reference Date Interpretation Comments Megan rce Range CHEM PANEL eGFR 134 02/06 Result Comment: The [facility] eGFR is calculated using the CKD-EPI formula. [...] PANEL AST 13 0 - 37 02/06 [facility] CHEM PANEL Alk Phos 48 39 - 136 02/06 [facility] CHEM PANEL ALT 22 0 - 65 02/06 [facility] CHEM PANEL Albumin Lvl 3.3 3.5 - 5.0 02/06 [facility] CHEM PANEL Creatinine 0.58 0.50 - 02/06 MH Lvl 1.40 /2016 [facility] CHEM PANEL Potassium 3.7 3.5 - 5.1 02/06 MH Lvl /2016 [facility] CHEM PANEL BUN 13 7 - 22 02/06 [facility] CHEM PANEL Sodium Lvl 137 135 - 145 02/06 [facility] CHEM PANEL Bili Total 0.3 0.2 - 1.3 02/06 [facility] CHEM PANEL Chloride Lvl 105 95 - 109 02/06 [facility] CHEM PANEL Calcium Lvl 8.3 8.5 - 10.5 02/06 [facility] CHEM PANEL Total 7.5 6.4 - 8.4 02/06 [facility] CHEM PANEL CO2 25 24 - 32 02/06 [facility] CHEM PANEL Glucose Lvl 88 70 - 99 02/06 [facility] CHEM PANEL B/C Ratio 22 6 - 25 02/06 [facility] CHEM PANEL Globulin 4.2 2.7 - 4.2 02/06 [facility] CHEM PANEL AGAP 10.7 10.0 - 02/06 MH 20.0 [facility] CHEM PANEL A/G Ratio 0.8 0.7 - 1.6 02/06 [facility] DRUG U Kelly Scr Negative Negative 02/06 [...] Negative Negative 02/06 SCREEN Scr *NA* /2016 [facility] (02/06/17 11:37 AM) DRUG UDS Note See Note 02/06 SCREEN (02/06/17 11:37 AM) /2016 [facility] DRUG U Amph Scr Negative Negative 02/06 SCREEN *NA* [facility] (02/06/17 11:37 AM) ENDOCRINOL S Preg Negative Negative 02/06 OGY *NA* /2016 [facility] (02/06/17 11:37 AM) HEMATOLOGY Eosinophils 0.2 0.0 - 0.5 02/06 MH # /2017 [facility] HEMATOLOGY Monocytes # 0.7 0.0 - 0.8 02/06 [facility] HEMATOLOGY Basophils # 0.1 0.0 - 0.2 02/06 [facility] HEMATOLOGY Lymphocytes 2.9 1.0 - 5.5 02/06 MH # /2016 [facility] HEMATOLOGY Segs-Bands # 7.2 1.5 - 8.1 02/06 [facility] HEMATOLOGY Monocytes 5.9 2.0 - 12.0 02/06 [facility] HEMATOLOGY Lymphocytes 26.2 20.0 - 02/06 MH 40.0 /2016 [facility] HEMATOLOGY Basophils 0.9 0.0 - 1.0 02/06 [facility] HEMATOLOGY Eosinophils 1.5 0.0 - 4.0 02/06 [facility] HEMATOLOGY Segs 65.5 45.0 - 02/06 MH 75.0 /2016 [facility] HEMATOLOGY INR 0.93 0.85 - 02/06 MH 1.17 /2016 [facility] HEMATOLOGY PT 12.7 12.0 - 02/06 MH 14.7 /2016 [facility] HEMATOLOGY RBC 4.85 4.20 - 02/06 MH 5.40 /2016 [facility] HEMATOLOGY Hgb 12.5 12.0 - 02/06 MH 16.0 /2016 [facility] HEMATOLOGY RDW 16.3 11.5 - 02/06 MH 14.5 /2016 [facility] HEMATOLOGY MCHC 32.4 32.0 - 02/06 MH 36.0 /2016 [facility] HEMATOLOGY MPV 11.5 7.4 - 10.4 02/06 [facility] HEMATOLOGY Platelet 228 133 - 450 02/06 [facility] HEMATOLOGY MCV 79.7 80.0 - 02/06 MH 98.0 /2016 [facility] HEMATOLOGY Hct 38.7 36.0 - 02/06 48.0 /2016 [facility] HEMATOLOGY MCH 25.8 27.0 - 02/06 MH 31.0 /2016 [facility] HEMATOLOGY WBC 11.0 3.7 - 10.4 02/06 [facility] HEMATOLOGY PTT 27.7 22.9 - 02/06 MH 35.8 /2016 [facility] URINE AND UA Color Gwen 02/06 STOOL [facility] URINE AND UA <=1.0 0.1 - 1.0 02/06 STOOL Urobilinogen mg/dL /2016 [facility] URINE AND UA Spec Grav 1.030 <=1.030 02/06 STOOL [facility] URINE AND UA Nitrite Negative Negative 02/06 STOOL (02/06/17 11:37 AM) /2016 [facility] URINE AND UA Leuk Est Large Negative 02/06 STOOL *ABN* /2016 [facility] (02/06/17 11:37 AM) URINE AND UA Sq Epi Many /LPF Few /LPF 02/06 STOOL [facility] URINE AND UA WBC 5 0 - 5 02/06 STOOL [facility] URINE AND UA Bacteria Occasional None Seen 02/06 STOOL /HPF /HPF /2016 [facility] URINE AND UA Mucus Few /LPF None Seen 02/06 STOOL /LPF /2016 [facility] URINE AND UA Glucose Negative Negative 02/06 STOOL mg/dL mg/dL [facility] URINE AND UA Turbidity Marked Clear 02/06 STOOL *ABN* /2016 [facility] (02/06/17 11:37 AM) URINE AND UA Protein Negative Negative 02/06 STOOL mg/dL mg/dL [facility] URINE AND UA pH 5.0 5.0 - 8.0 02/06 STOOL [facility] URINE AND UA Ketones Negative Negative 02/06 STOOL mg/dL mg/dL [facility] URINE AND UA Blood Negative Negative 02/06 STOOL (02/06/17 11:37 AM) /2016 [facility] URINE AND UA Bili Negative Negative 02/06 STOOL *NA* /2016 [facility] (02/06/17 11:37 AM) CHEM PANEL BUN 10 7 - 22 08/22 [facility] CHEM PANEL Glucose Lvl 93 70 - 99 08/22 [facility] CHEM PANEL Potassium 4.0 3.5 - 5.1 08/22 Lvl [facility] CHEM PANEL Chloride Lvl 107 95 - 109 08/22 [facility] CHEM PANEL Calcium Lvl 9.1 8.5 - 10.5 08/22 [facility] CHEM PANEL Sodium Lvl 140 135 - 145 08/22 [facility] CHEM PANEL Creatinine 0.67 0.50 - 08/22 MH Lvl 1.40 /2016 [facility] CHEM PANEL CO2 26 24 - 32 08/22 [facility] CHEM PANEL eGFR 129 08/22 Comment: The [facility] eGFR is calculated using the CKD-EPI formula. [...] AGAP 11.0 10.0 - 08/22 MH 20.0 [facility] HEMATOLOGY MPV 10.8 7.4 - 10.4 08/22 [facility] HEMATOLOGY Platelet 196 133 - 450 08/22 [facility] HEMATOLOGY RDW 15.2 11.5 - 08/22 MH 14.5 /2016 [facility] HEMATOLOGY MCHC 33.4 32.0 - 08/22 MH 36.0 /2016 [facility] HEMATOLOGY MCH 27.8 27.0 - 08/22 MH 31.0 /2016 [facility] HEMATOLOGY MCV 83.5 80.0 - 08/22 MH 98.0 /2016 [facility] HEMATOLOGY Hgb 14.0 12.0 - 08/22 MH 16.0 [facility] HEMATOLOGY Hct 41.9 36.0 - 08/22 MH 48.0 /2016 [facility] HEMATOLOGY RBC 5.02 4.20 - 04 MH 5.40 /2016 [facility] HEMATOLOGY WBC 6.9 3.7 - 10.4 08/22 [facility] HEMATOLOGY Segs 59.3 45.0 - 08/22 MH 75.0 /2016 [facility] HEMATOLOGY Monocytes # 0.4 0.0 - 0.8 08/22 /2016 [facility] HEMATOLOGY Eosinophils 0.1 0.0 - 0.5 08/22 MH # /2016 [facility] HEMATOLOGY Basophils 0.6 0.0 - 1.0 08/22 [facility] HEMATOLOGY Segs-Bands # 4.1 1.5 - 8.1 08/22 [facility] HEMATOLOGY Lymphocytes 32.1 20.0 - 08/22 MH 40.0 /2016 [facility] HEMATOLOGY Monocytes 6.1 2.0 - 12.0 08/22 [facility] HEMATOLOGY Lymphocytes 2.2 1.0 - 5.5 08/22 MH # /2016 [facility] HEMATOLOGY Eosinophils 1.9 0.0 - 4.0 08/22 [facility] URINE AND UA Protein 100 mg/dL Negative 08/22 [facility] mg/dL [facility] URINE AND UA Glucose Negative Negative 08/22 [facility] mg/dL mg/dL [facility] URINE AND UA Ketones Negative Negative 08/22 [facility] mg/dL mg/dL [facility] URINE AND UA Bili Negative Negative 08/22 [facility] *NA* /2016 [facility] (08/22/16 10:38 AM) URINE AND UA Leuk [...] Turbidity Slight Clear 08/22 [facility] *ABN* /2016 [facility] (08/22/16 10:38 AM) URINE AND UA Nitrite Negative Negative 08/22 [facility] (08/22/16 10:38 AM) [facility] URINE [facility] UA Blood Large Negative 08/22 [facility] *ABN* /2016 [facility] (08/22/16 10:38 AM) URINE CHEM U Preg [...] Leuk Est Small Negative 07/14 STOOL *ABN* [facility] (07/13/16 6:38 PM) URINE AND UA WBC 7 0 - 5 07/14 [facility] URINE AND UA Nitrite Negative Negative 07/14 [facility] (07/13/16 6:38 PM) [facility] URINE [facility] UA Blood Negative Negative 07/14 [facility] (07/13/16 6:38 PM) [facility] URINE AND UA Glucose Negative Negative 07/14 [facility] mg/dL mg/dL [facility] URINE AND UA Bili Negative Negative 07/14 [facility] *NA* /2016 [facility] (07/13/16 6:38 PM) URINE AND UA Ketones Trace Negative 07/14 [facility] mg/dL mg/dL [facility] URINE AND UA Protein Negative Negative 07/14 [facility] mg/dL mg/dL [facility] URINE AND UA pH 6.0 5.0 - 8.0 07/14 [facility] URINE AND UA Spec Grav 1.027 <=1.030 07/14 [facility] URINE AND UA Turbidity Marked Clear 07/14 STOOL *ABN* [facility] (07/13/16 6:38 PM) URINE AND UA Color Yellow Yellow 07/14 [facility] *NA* /2016 [facility] (07/13/16 6:38 PM) URINE CHEM U Preg Negative Negative 07/14 (07/13/16 6:38 PM) [facility] CHEM PANEL Lipase Lvl 110 73 - 393 07/14 [facility] CHEM PANEL Amylase Lvl 42 25 - 115 07/14 [facility] CHEM PANEL Lipase Lvl 107 73 - 393 07/14 [facility] CHEM PANEL eGFR 131 07/14 [facility] Comment: The [facility] eGFR is calculated using the CKD-EPI formula. [...] Globulin 4.2 2.7 - 4.2 07/14 /2016 [facility] CHEM PANEL A/G Ratio 0.9 0.7 - 1.6 07/14 /2016 [facility] CHEM PANEL AGAP 13.7 10.0 - 07/14 MH 20.0 /2016 [facility] CHEM PANEL B/C Ratio 16 6 - 25 07/14 [facility] HEMATOLOGY Monocytes # 0.5 0.0 - 0.8 07/14 [facility] HEMATOLOGY Lymphocytes 1.8 1.0 - 5.5 07/14 # /2016 [facility] HEMATOLOGY Basophils # 0.1 0.0 - 0.2 07/14 [facility] HEMATOLOGY Segs-Bands # 12.5 1.5 - 8.1 07/14 [facility] HEMATOLOGY Lymphocytes 12.0 20.0 - 07/14 40.0 /2016 [facility] HEMATOLOGY Basophils 0.4 0.0 - 1.0 07/14 [facility] HEMATOLOGY Segs 84.1 45.0 - 07/14 75.0 /2016 [facility] HEMATOLOGY Monocytes 3.5 2.0 - 12.0 07/14 [facility] HEMATOLOGY RDW 17.0 11.5 - 07/14 14.5 [facility] HEMATOLOGY Platelet 212 133 - 450 07/14 [facility] HEMATOLOGY MPV 10.6 7.4 - 10.4 07/14 [facility] HEMATOLOGY RBC 5.03 4.20 - 07/14 MH 5.40 /2016 [facility] HEMATOLOGY WBC 14.9 3.7 - 10.4 07/14 /2016 [facility] HEMATOLOGY Hct 41.5 36.0 - 07/14 48.0 /2016 [facility] HEMATOLOGY Hgb 13.7 12.0 - 07/14 16.0 [facility] HEMATOLOGY MCV 82.5 80.0 - 07/14 98.0 /2017 [facility] HEMATOLOGY MCHC 33.0 32.0 - 07/14 36.0 /2016 [facility] HEMATOLOGY MCH 27.2 27.0 - 07/14 31.0 /2016 [facility] Pathology Reports No Data Provided for This Section Diagnostic Reports Report Value Date Source Brain wo contrast CT Addendum: I have reviewed th is examination and concur with the interpretation. 02/06/[address] [facility] [address] HEAD WITHOUT CONTRAST: HISTORY: New [...] CT EXAM: CT BRAIN WITHOUT CONTRAST 08/22/2016 [facility] DATE: 08/22/2016 10:55 AM CDT INDICATION: [...] may be performed for complete assessment. SL: [id number] Consultation Notes No Data Provided for This Section Discharge Summaries No Data Provided for This Section History and Physicals No Data Provided for This Section Vital Signs Vital Sign Value Date Comments Source Temperature Oral (F) 98.3 F 02/06/2017 [facility] Systolic (mm Hg) 109 02/06/2017 [facility] Diastolic (mm Hg) 58 02/06/[address] [facility] [address] Respitory Rate 21 02/06/2017 [facility] Systolic (mm Hg) 109 [facility] 89 02/06/[address] [facility] [address] Respitory Rate 15 02/06/2017 [facility] Height 167.64 cm 02/06/2017 [facility] BMI Calculated 30.73 02/06/2017 [facility] Weight 86.364 02/06/2017 [facility] Heart Rate 81 02/06/2017 [facility] Temperature Oral (F) 97.8 F 02/06/2017 [facility] Respitory Rate 18 02/06/2017 [facility] Systolic (mm Hg) 128 02/06/2017 [facility] [...] 91 08/22/2016 [facility] Respitory Rate 18 08/22/2016 [facility] BMI Calculated 31.54 08/22/2016 [facility] Weight 88.636 08/22/2016 [facility] Height 167.64 cm 08/22/2016 [facility] Temperature [...] 07/14/2016 [facility] Heart Rate 61 07/14/2016 [facility] BMI Calculated 31.54 07/13/2016 [facility] Height 167.64 cm 07/13/2016 [facility] Weight 88.636 07/13/2016 [facility] Respitory Rate 17 07/13/2016 [facility] Heart Rate 110 07/13/2016 [facility] Temperature Oral (F) 98.2 F 07/13/[facility] Systolic (mm Hg) 126 07/13/[place] [facility] Diastolic (mm Hg) 89 07/13/[address] Encounters Location Location Encounter Encounter Reason Attending ADM DC Stat us Source Details Type Number For Provider [facility] [id number] Saw 07/13 07/14 Dagoberto Guaman /2016 [facility] Emergency [id number] Titus Fay 08/22 08/22 Dagoberto [facility] Emergency [id number] Mauricio Iheme 02/06 02/06 [place] /2016 [facility] Procedures No Data Provided for This Section Assessment and Plan No Data Provided for This Section Plan of Care No Data Provided for This Section Social History Social History Date Source Social History TypeResponse 02/06/2017 [facility] Substance Abuse Use: Current. Type: Marijuana. Alcohol Current Smoking Status Former smoker; Exposure to Tobacco Smoke None; Cigarette Smoking Last 365 Days No; Reg Smoking Cessation Counseling No Family History No Data Provided for This Section Advance Directives No Data Provided for This Section Functional Status No Data Provided for This Section
--- OUTSIDE RECORDS SUMMARY | 2020-02-13 10:07 | XMS REPORT | Continuity of Care Document ---
:2000 Author Organization [facility] t Address [address] [place] [address] Care Team Providers Name Role Phone Venkatesh [...] SENT-HEAD 08-22 11:14:[address] 00:00: [place] SENT-HEAD 00 PAIN Active 08/22/2016 [facility] ABD PAIN/ Diagnosis Active 2016-07-13 Memoria [...] acute Diagnosis: Abdominal pain, acute 07/13/2016 07/16/2016 [facility] Allergies, Adverse Reactions, Alerts This patient has no known allergies or adverse reactions. Social History Social Habit Start Date Stop Date Quantity Comments Source Social History 2017-02-06 2017-02-06 [facility] 17:20:23 17:20:23 Medications Ordered Filled Start Stop Current Ordering Indication Dosage Frequency Signature Comments Components Source Medication Medication Date Date Medication? Clinician (SIG) Name Name Sodium No 1,000 mL, Memori a Chloride -16 1,000 l 0.9% 16:19: ml/hr, [place] (Bolus) IV 00 Infuse Over: 1 hr, [...] ia 2-20 (Same as: l 23:48: Pepcid) [place] 00 Can be dilute in 5-10cc NS IVP: Slow IV push over at least 2 minutes. GI cocktail No Notes: David kaitlynn 2-20 G.I. 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, Duration: 1 doses or times, Stop date: 07/13/16 17:47:00 STOREROOM CLERK Vital Signs Vital Name Observation Time Observation Value Comments Source Temperature Oral (F) 2017-02-06 19:10:00 98.3 F [facility] [place] Systolic (mm Hg) 2017-02-06 19:10:00 David rial [place] Diastolic (mm Hg) 2017-02-06 19:10:00 Mem orial [place] Respitory Rate 2017-02-06 19:10:00 Memori [facility] [place] Systolic (mm Hg) 2017-02-06 17:30:00 David rial [place] Diastolic (mm Hg) 2017-02-06 17:30:00 Mem orial [place] Respitory Rate 2017-02-06 17:30:00 [facility] [place] Height 2017-02-06 15:44:00 167.64 cm [facility] [place] BMI Calculated 2017-02-06 15:44:00 [facility] [place] Weight 2017-02-06 15:44:00 [facility] [place] Heart Rate 2017-02-06 15:44:00 [facility] [place] Temperature Oral (F) 2017-02-06 15:44:00 97.8 F [facility] [place] Respitory Rate 2017-02-06 15:44:00 [facility] [place] Systolic (mm Hg) 2017-02-06 15:44:00 David rial [place] Diastolic (mm Hg) 2017-02-06 15:44:00 Mem orial [place] Heart Rate 2016-08-22 18:06:00 [facility] [place] Respitory Rate 2016-08-22 18:06:00 Memori al [place] Systolic (mm Hg) 2016-08-22 18:06:00 David rial [place] Diastolic (mm Hg) 2016-08-22 18:06:00 Mem [facility] [place] Temperature Oral (F) 2016-08-22 18:06:00 97.6 F [facility] [place] Systolic (mm Hg) 2016-08-22 14:58:00 David rial [place] Diastolic (mm Hg) 2016-08-22 14:58:00 [facility] [place] Heart Rate 2016-08-22 14:58:00 [facility] [place] Respitory Rate 2016-08-22 14:58:00 Memori [facility] [place] BMI Calculated 2016-08-22 14:58:00 [facility] [place] Weight 2016-08-22 14:58:00 [facility] [place] Height 2016-08-22 14:58:00 167.64 cm [facility] [place] Temperature Oral (F) 2016-08-22 14:58:00 97.8 F [facility] [place] Respitory Rate 2016-07-14 02:00:00 [facility] [place] Heart Rate 2016-07-14 02:00:00 [facility] [place] Systolic (mm Hg) 2016-07-14 02:00:00 David rial [place] Diastolic (mm Hg) 2016-07-14 02:00:00 Mem [facility] [place] Respitory Rate 2016-07-14 01:41:00 [facility] [place] Systolic (mm Hg) 2016-07-14 01:41:00 David rial [place] Diastolic (mm Hg) 2016-07-14 01:41:00 Mem [facility] [place] Temperature Oral (F) 2016-07-14 01:41:00 97.8 F [facility] [place] Heart Rate 2016-07-14 01:41:00 [facility] [place] BMI Calculated 2016-07-13 20:47:00 [facility] [place] Height 2016-07-13 20:47:00 167.64 cm [facility] [place] Weight 2016-07-13 20:47:00 [facility] [place] Respitory Rate 2016-07-13 20:47:00 [facility]ori [facility] [place] Heart Rate 2016-07-13 20:47:00 [facility] [place] Temperature Oral (F) 2016-07-13 20:47:00 98.2 F [facility] [place] Systolic (mm Hg) 2016-07-13 20:47:00 David rial [place] Diastolic (mm Hg) 2016-07-13 20:47:00 Mem [facility] [place] Procedures This patient has no known procedures. Encounters Start End Encounter Admission Attending Care Care Encounter Source Date/Time Date/Time Type Type Clinicians Facility Department ID 2017-02-06 2017-02-06 [facility] [id number] 10:39:00 15:00:00 U 02 2016-08-22 2016-08-22 Outpatient Fay, [place] [id number] 09:56:00 13:17:00 Reeva 01 Rohit 2016-07-13 2016-07-13 Outpatient Guaman, [facility] [id number] 14:38:00 20:00:00 Saw 00 Moises Results Test Description Test Time Test Comments Results Result Sourc e Comments CHEM PANEL 2017-02-06 134 [facility] 16:37:00 [place] CHEM PANEL 2017-02-06 13 [facility] 16:37:00 [place] CHEM PANEL 2017-02-06 48 [facility] 16:37:00 [place] CHEM PANEL 2017-02-06 22 [facility] 16:37:00 [place] CHEM PANEL 2017-02-06 3.3 [facility] 16:37:00 [place] CHEM PANEL 2017-02-06 0.58 [facility] 16:37:00 [place] CHEM PANEL 2017-02-06 3.7 [facility] 16:37:00 [place] CHEM PANEL 2017-02-06 13 [facility] 16:37:00 [place] CHEM PANEL 2017-02-06 137 [facility] 16:37:00 [place] CHEM PANEL 2017-02-06 0.3 [facility] 16:37:00 [place] CHEM PANEL 2017-02-06 105 [facility] 16:37:00 [place] CHEM PANEL 2017-02-06 8.3 [facility] 16:37:00 [place] CHEM PANEL 2017-02-06 7.5 [facility] 16:37:00 [place] CHEM PANEL 2017-02-06 25 [facility] 16:37:00 [place] CHEM PANEL 2017-02-06 88 [facility] 16:37:00 [place] CHEM PANEL 2017-02-06 22 [facility] 16:37:00 [place] CHEM PANEL 2017-02-06 4.2 [facility] 16:37:00 [place] CHEM PANEL 2017-02-06 10.7 [facility] 16:37:00 [place] CHEM PANEL 2017-02-06 0.8 [facility] 16:37:00 [place] DRUG SCREEN 2017-02-06 Negative [facility] 16:37:00 *NA*(02/06/17 [place] 11:37 AM) DRUG SCREEN 2017-02-06 Negative [facility] 16:37:00 *NA*(02/06/17 [place] 11:37 AM) DRUG SCREEN 2017-02-06 Negative [facility] 16:37:00 *NA*(02/06/17 [place] 11:37 AM) DRUG SCREEN 2017-02-06 Positive [facility] 16:37:00 *ABN*(02/06/17 [place] 11:37 AM) DRUG SCREEN 2017-02-06 Negative [facility] 16:37:00 *NA*(02/06/17 [place] 11:37 AM) DRUG SCREEN 2017-02-06 Negative [facility] 16:37:00 *NA*(02/06/17 [place] 11:37 AM) DRUG SCREEN 2017-02-06 See Note [facility] 16:37:00 (02/06/17 11:37 [place] AM) DRUG SCREEN 2017-02-06 Negative [facility] 16:37:00 *NA*(02/06/17 [place] 11:37 AM) ENDOCRINOLOGY 2017-02-06 Negative [facility] 16:37:00 *NA*(02/06/17 [place] 11:37 AM) HEMATOLOGY 2017-02-06 0.2 [facility] 16:37:00 [place] HEMATOLOGY 2017-02-06 0.7 [facility] 16:37:00 [place] HEMATOLOGY 2017-02-06 0.1 [facility] 16:37:00 [place] HEMATOLOGY 2017-02-06 2.9 [facility] 16:37:00 [place] HEMATOLOGY 2017-02-06 7.2 [facility] 16:37:00 [place] HEMATOLOGY 2017-02-06 5.9 [facility] 16:37:00 [place] HEMATOLOGY 2017-02-06 26.2 [facility] 16:37:00 [place] HEMATOLOGY 2017-02-06 0.9 [facility] 16:37:00 [place] HEMATOLOGY 2017-02-06 1.5 [facility] 16:37:00 [place] HEMATOLOGY 2017-02-06 65.5 [facility] 16:37:00 [place] HEMATOLOGY 2017-02-06 0.93 [facility] 16:37:00 [place] HEMATOLOGY 2017-02-06 16:37:00 Test Item Value Reference Range Interpretation Comme nts PT (test code = PT) 12.7 s 12.0-14.7 [facility] WotqectITFRHMGQZC0345-42-36 16:37:004.85[facility]ann[facility]OLOGY 2017-02-06 16:37:0012.5[facility] VjybzvgUUUEQFYOXI1696-29-80 16:37:0016.3[facility] WmurspjKMRGXIDKBI8079-46-45 16:37:0032.4[facility] IhkgatuVISTFOFRDY1948-58-99 16:37:0011.5[facility] CjohipnKQNFUJJOFG2880-92-26 16:37:07172Ympecyah [address] BRCIMHIDZH9739-44-79 16:37:0079.7[facility] EidmkvbSQWGLXKEZB5984-64-96 16:37:00 38.7[facility] TxizzbrKZWWUQZAIM1028-86-53 16:37:00 Test Item Value Reference Range Interpretation Comments MCH (test code = MCH) 25.8 pg 27.0-31.0 [facility] QsiuxeeENPBHNKQHT1583-48-40 16:37:0011.0[facility]annHEMATOLOGY 2017-02-06 16:37:00 Test Item Value Reference Range Interpretation Comments PTT (test code = PTT) 27.7 s 22.9-35.8 [facility] [id number] 16:37:001.030[facility] TLWHO0840-87-68 16:37:00Negative (02/06/17 11:37 AM)[facility] TZGWN2452-41-79 16:37:00Large *ABN*(02/06/17 11:37 AM)[facility] UBIVS1138-56-44 16:37:005[facility] ITPTQ5156-86-94 16:37:00 Marked *ABN*(02/06/17 11:37 AM)[facility] HFNPN1222-77-89 16:37:00 5.0[facility] GRFDX3220-93-70 16:37:00Negative (02/06/17 11:37 AM) [facility] PSYLB2197-33-75 16:37:00Negative *NA*(02/06/17 11:37 AM)[facility]ann[facility] QYIGI8370-35-19 15:38:0010[facility]annCHEM PANEL 2016-08-22 15:38:0093[facility]annCHE[facility] XROBW3289-94-20 15:38:004.0[facility]annCHE[facility] VGVJB3598-88-86 15:38:82357Rhodxaey HermannCHEM JHFDB1171-11-38 15:38:009.1[facility]annCHE[facility] PTVMP5005-95-41 15:38:16290Gtdxvfev [facility]annCHE[facility] NLQDV6575-64-70 15:38:000.67[facility]annCHE[facility] MSMAC9749-11-95 15:38:0026 [facility] MZHIG1820-87-89 15:38:37890Gnqmjmpq HermannCHEM PANEL 2016-08-22 15:38:0011.0[facility] QwsdeedRYYVUFWNCY1956-94-15 15:38:0010.8[facility] SxcuszqIXLEIFSHGD2226-40-10 15:38:29688Mofnjvhu OamzhlwQOPRYSMVAA9233-42-26 15:38:0015.2[facility] YmxruifDJUPALSNPT9416-65-01 15:38:0033.4[facility] [place] NTBQIXZCDF9190-42-58 15:38:00 Test Item Value Reference Range Interpretation Comments MCH (test code = MCH) 27.8 pg 27.0-31.0 [facility] WdcxkcvIWZYOUPWBM3857-45-69 15:38:0083.5[facility]annHEMATOLOGY 2016-08-22 15:38:0014.0[facility] SzjxgooGTRPYDPDFR0944-81-79 15:38:0041.9[facility] WjsjxcySQZGGPXVLR2620-77-25 15:38:005.02[facility] KefaokdUQMGWKVGQZ3879-07-37 15:38:006.9[facility] WxgxglgIDVDJQUJJO7779-68-85 15:38:0059.3[facility] ZYYKGLWKGK9867-43-19 15:38:000.4[facility] UfegnxiMRINPBLVOC8513-62-31 15:38:000.1 [facility] AeknuqnHLRTVYRUVD3087-64-50 15:38:000.6[facility]annHEMATOLOGY 2016-08-22 15:38:004.1[facility] FlrjfntWNXIBLZFOO3602-16-06 15:38:0032.1[facility] UwwbqjeMTZSKNOSUQ8109-97-71 15:38:006.1[facility] BojyjnfTFPWPTNPHR0062-27-31 15:38:002.2[facility] VksmmksEXBNSQZEPN8469-74-93 15:38:001.9[facility] HMVRW3570-69-82 15:38:00Negative *NA*(08/22/16 10:38 AM)[facility] OBNYN2016-47-88 15:38:00Negative (08/22/16 10:38 AM)[facility] ATMKW1061-49-38 15:38:00>182[facility] AGDBJ9916-66-05 15:38:001[facility] MBPFH0577-22-24 15:38:006.0[facility] [place] URINE AND EXCAV2966-86-81 15:38:001.025[facility] IMWHG0630-72-94 15:38:00Slight *ABN*(08/22/16 10:38 AM)[facility] RKBMI4595-53-41 15:38:00Negative (08/22/16 10:38 AM)[facility] IKUDE3830-62-99 15:38:00Large *ABN*(08/22/16 10:38 AM)[facility] DKEX5122-18-51 15:38:00Negative (08/22/16 10:38 AM)[facility] VFDWE2102-35-58 00:38:002[facility] NRITB1988-07-07 00:38:007[facility] [place] URINE AND XYTNQ4871-41-59 00:38:00Small *ABN*(07/13/16 6:38 PM)[facility]INE AND RAZCZ9664-25-91 00:38:007[facility] QSIGQ0197-49-02 00:38:00Negative (07/13/16 6:38 PM)[facility] OSRKW2998-64-19 00:38:00Negative (07/13/16 6:38 PM)[facility] HMZBA3225-95-38 00:38:00Negative *NA*(07/13/16 6:38 PM)[facility] MODMY3154-01-20 00:38:006.0[facility] WECCM9295-67-87 00:38:001.027[facility] UWTQE8238-71-64 00:38:00Marked *ABN*(07/13/16 6:38 PM)[facility] HSISD4112-02-51 00:38:00Yellow *NA*(07/13/16 6:38 PM)[facility] TGDU5628-28-73 00:38:00Negative (07/13/16 6:38 PM)[facility] CHEM GLIQV1816-00-47 00:27:31418Zcttruuv HermannCHEM HYEHD5775-77-16 00:27:0042 [facility]annCHE[facility] KZYEZ4405-12-31 00:27:93100Tgqflepi HermannCHEM PANEL 2016-07-14 00:27:38389Trfgqtvz [facility]annCHEM RRBDD2726-05-02 00:27:000.6[facility]annCHE[facility] ZSFLH0611-46-30 00:27:0043[facility]annCHE[facility] BTDKE1471-98-77 00:27:0015[facility]annCHEM CMIOF5659-49-55 00:27:0022[facility]annCHE[facility] TZQCD3904-21-26 00:27:003.6[facility]annCHE[facility] MEQJK2158-38-65 00:27:008.4 [facility]CHE[facility] GYLOC6930-59-50 00:27:007.8[facility]annCHEM PANEL 2016-07-14 00:27:0025[facility]annCHEM KJEDT3787-40-79 00:27:000.63[facility]annCHEM SNNTT5978-13-74 00:27:30814Iovhtpja HermannCHEM KLTOB2762-18-99 00:27:003.7[facility]annCHEM YNVKL5475-43-64 00:27:0087[facility]annCHE[facility] DDWUV0266-43-41 00:27:50972Vmjwwlnq [facility]annCHE[facility] SNIOF8237-61-53 00:27:0010 [facility]annCHE[facility] DVPXY6326-82-33 00:27:004.2[facility]annCHEM PANEL 2016-07-14 00:27:000.9[facility]annCHEM YUOLO5026-67-70 00:27:0013.7[facility]annCHEM MPCDO2199-77-63 00:27:0016[facility] EkufcaeBHNESFPSQU1629-52-08 00:27:000.5[facility] PjeumeuBHFDSEFGRI3639-97-65 00:27:001.8[facility] WMWFMKZIGV0360-66-45 00:27:000.1[facility] KvqsgjvMQCDBKXWSY7232-01-84 00:27:00 12.5[facility] GjiagmuCDRPNKXLOK0243-34-16 00:27:0012.0[facility]annHEMATOLOGY 2016-07-14 00:27:000.4[facility] BemwpkkIILCQMNDMR3179-07-61 00:27:0084.1[facility] QbtydjnNALIRDTJBX8856-47-64 00:27:003.5[facility] CsexvhkUINYOYHEMY3943-97-32 00:27:0017.0[facility] SvxarchMVBEDUJUFV3228-54-88 00:27:32257Xcwhibhu [place] GHRLXQGZOI5949-99-09 00:27:0010.6[facility] GajcimrHIJARAQVCE2540-15-04 00:27:00 5.03[facility] UlnmujyQSBCWKUEZB0033-87-88 00:27:0014.9[facility]annHEMATOLOGY 2016-07-14 00:27:0041.5[facility] XtshkstIGNBUSMIZO8610-98-17 00:27:0013.7[facility] WerydefKPHYTMYNXE9170-27-08 00:27:0082.5[facility] YmeiovaBTXKAZCENY2767-61-58 00:27:0033.0[facility] TsucxfyDSSLWRZBDN1966-67-56 00:27:00 Test Item Value Reference Range Interpretation Comments MCH (test code = MCH) 27.2 pg 27.0-31.0 [facility]
[2020-02-13] MEDS ORDERED: IBUPROFEN 400 MG TAB ONE (10:49)
--- NOTE | 2020-02-13 11:37 | RAD REPORT ---
EXAM DESCRIPTION: RAD - Ankle Right 3 View - 02/13/2020 11:07 am CLINICAL HISTORY: PAIN, fall, bilateral ankle pain COMPARISON: Ankle Left 3 View dated 02/13/2020 FINDINGS: No fracture, dislocation or periosteal reaction. No joint effusion seen. No joint space na rrowing. Lateral and mild anterior soft tissue swelling present. No foreign body. IMPRESSION: Soft tissue swelling without fracture identified.
--- NOTE | 2020-02-13 11:40 | RAD REPORT ---
EXAM DESCRIPTION: RAD - Ankle Left 3 View - 02/13/2020 11:07 am CLINICAL HISTORY: PAIN, fall, twisting injury, bilateral ankle pain COMPARISON: No comparisons FINDINGS: No fracture, dislocation or periosteal reaction. No joint effusion seen. No joint space na rrowing. Lateral and mild anterior soft tissue swelling present. IMPRESSION: Soft tissue swelling around the ankle. No fracture identified.
--- NOTE | 2020-02-13 11:43 | EDPHYS ---
Physician Documentation [facility] Name: Abi Reynolds Age: 20 yrs Sex: Female : 2000 Arrival Date: 02/13/2020 Time: 10:15 Bed 15 Private MD: ED Physician Vincent Perez HPI: 02/12 11:40 This 20 yrs old Female presents to ER via Wheelchair with complaints of Fall kb Injury. 11:40 Details of fall: The patient fell from a height, down approximately 3 stairs. Onset: kb The symptoms/episode began/occurred last night. Associated injuries: The patient sustained left lateral ankle, painful injury, swelling, right ankle, painful injury, swelling. Severity of symptoms: At their worst the symptoms were mild, in the emergency department the symptoms are unchanged. The patient has not experienced similar symptoms in the past. The patient has not recently seen a physician. "I think I broke my ankle." When asked which ankle, pt responded "I don't know maybe both." Reports pain to both ankles and inability to bear weight. . LAYER UP: 12:00 LMP N/A - control method ll1 Historical: - Allergies: 10:30 No Known Allergies; hb - PMHx: 10:30 Anxiety; Depression; PTSD; Seizures; hb - PSHx: 10:30 None; hb - Immunization history:: Adult Immunizations up to date. - Social history:: Smoking status: Patient/guardian denies using tobacco, Stopped _ months ago 1. - Immunization history: Last tetanus immunization: - up to date. ROS: 11:38 Constitutional: Negative for fever, chills, and weight loss, Cardiovascular: Negative kb for chest pain, palpitations, and edema, Respiratory: Negative for shortness of breath, cough, wheezing, and pleuritic chest pain, Abdomen/GI: Negative for abdominal pain, nausea, vomiting, diarrhea, and constipation, Back: Negative for injury and pain, Skin: Negative for injury, rash, and discoloration, Neuro: Negative for headache, weakness, numbness, tingling, and seizure. 11:38 MS/extremity: Positive for injury or acute deformity, pain, swelling, tenderness, of the right ankle and left lateral ankle. Exam: 11:39 Constitutional: This is a well developed, well nourished patient who is awake, alert, kb and in no acute distress. Head/Face: Normocephalic, atraumatic. Chest/axilla: Normal chest wall appearance and motion. Nontender with no deformity. No lesions are appreciated. Cardiovascular: Regular rate and rhythm with a normal S1 and S2. No gallops, murmurs, or rubs. Normal PMI, no JVD. No pulse deficits. Respiratory: Lungs have equal breath sounds bilaterally, clear to auscultation and percussion. No rales, rhonchi or wheezes noted. No increased work of breathing, no retractions or nasal flaring. Abdomen/GI: Soft, non-tender, with normal bowel sounds. No distension or tympany. No guarding or rebound. No evidence of tenderness throughout. Skin: Warm, dry with normal turgor. Normal color with no rashes, no lesions, and no evidence of cellulitis. Neuro: Awake and alert, GCS 15, oriented to person, place, time, and situation. Cranial nerves II-XII grossly intact. Motor strength 5/5 in all extremities. Sensory grossly intact. Cerebellar exam normal. Normal gait. 11:39 Musculoskeletal/extremity: Extremities: grossly normal except: noted in the left lateral ankle: swelling, tenderness, ROM: intact in all extremities, Circulation is intact in all extremities. Sensation intact. Weight bearing: is unable to bear weight. Vital Signs: 10:28 BP 98 / 73; Pulse 72; Resp 16; Temp 97.9; Pulse Ox 100% on R/A; Weight 81.65 kg; Height hb 5 ft. 6 in. (167.64 cm); Pain 9/10; 12:00 BP 98 / 57; Pulse 70; Resp 16; Pulse Ox 100% ; ll1 10:28 Body Mass Index 29.05 (81.65 kg, 167.64 cm) hb Mccarley Coma Score: 10:49 Eye Response: spontaneous(4). Verbal Response: oriented(5). Motor Response: obeys ll1 commands(6). Total: 15. Trauma Score (Adult): 10:48 Eye Response: spontaneous(1); Verbal Response: oriented(1); Motor Response: obeys ll1 commands(2); Systolic BP: > 89 mm Hg(4); Respiratory Rate: 10 to 29 per min(4); Leo Score: 15; Trauma Score: 12 MDM: 10:31 Patient medically screened. kb 11:37 Data reviewed: vital signs, nurses notes. Data interpreted: Pulse oximetry: on room air kb is 100 %. Interpretation: normal. Counseling: I had a detailed discussion with the patient and/or guardian regarding: the historical points, exam findings, and any diagnostic results supporting the discharge/admit diagnosis, radiology results, the need for outpatient follow up, a family practitioner, to return to the emergency department if symptoms worsen or persist or if there are any questions or concerns that arise at home. 02/12 10:36 Order name: Ankle Left 3 View XRAY; Complete Time: 11:42 kb 02/12 10:36 Order name: Ankle Right 3 View XRAY; Complete Time: 11:37 kb Administered Medications: 10:42 Drug: Ibuprofen 800 mg Route: PO; ll1 12:00 Follow up: Response: No adverse reaction; RASS: Alert and Calm (0) ll1 Disposition: 12:26 Co-signature as Attending Physician, Vincent Perez MD. rn Disposition: 02/13/20 11:42 Discharged to Home. Impression: Sprain of ankle. - Condition is Stable. - Discharge Instructions: Ankle Sprain, Tzff-mv-Cuvf. - Prescriptions for Ibuprofen 800 mg Oral Tablet - take 1 tablet by ORAL route every 8 hours As needed take with food; 30 tablet. - Medication Reconciliation Form, Thank You Letter, Antibiotic Education, Prescription Opioid Use form. - Follow up: Emergency Department; When: As needed; Reason: Worsening of condition. Follow up: Private Physician; When: 2 - 3 days; Reason: Recheck today's complaints, Continuance of care, Re-evaluation by your physician. Signatures: Dispatcher [employer] EDDE Wilda Galvez, [employer] SUPERVISOR-C [employer] SUPERVISOR-Ckb Vincent Perez MD MD rn Baxter, Heather, RN RN hb Lewis, Lynsay, RN RN ll1 Corrections: (The following items were deleted from the chart) 12:03 11:42 02/13/2020 11:42 Discharged to Home. Impression: Sprain of ankle. Condition is ll1 Stable. Forms are Medication Reconciliation Form, Thank You Letter, Antibiotic Education, Prescription Opioid Use. Follow up: Emergency Department; When: As needed; Reason: Worsening of condition. Follow up: Private Physician; When: 2 - 3 days; Reason: Recheck today's complaints, Continuance of care, Re-evaluation by your physician. kb
--- NOTE | 2020-02-13 11:43 | ER ---
Nurse's Notes [facility] Name: Abi Reynolds Age: 20 yrs Sex: Female : 2000 Arrival Date: 02/13/2020 Time: 10:15 Bed 15 Private MD: Diagnosis: Sprain of ankle Presentation: 02/12 10:27 Chief complaint: Bilateral ankle pain after fall down 4 stairs last night. NEGATIVE hb LOC. Care prior to arrival: None. 10:27 Acuity: MALINA 4 hb 10:27 Method Of Arrival: Wheelchair hb 10:28 Coronavirus screen: At this time, the client does not indicate any symptoms associated hb with coronavirus-19. Ebola Screen: No symptoms or risks identified at this time. Initial Sepsis Screen: Does the patient meet any 2 criteria? No. Patient's initial sepsis screen is negative. Does the patient have a suspected source of infection? No. Patient's initial sepsis screen is negative. Risk Assessment: Do you want to hurt yourself or someone else? Patient reports no desire to harm self or others. Onset of symptoms was February 13, 2020. 10:49 Mechanism of Injury: Fall. Trauma event details: Injury occurred: February 12, 2020. 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 - Social history:: Smoking status: Patient/guardian denies using tobacco, Stopped _ months ago 1. - Immunization history: Last tetanus immunization: - up to date. Screenin:47 Abuse screen: Denies threats or abuse. Nutritional screening: No deficits noted. ll1 Tuberculosis screening: No symptoms or risk factors identified. Fall Risk Ambulatory Aid- Crutches/Cane/Walker (15 pts). Total Lucia Fall Scale indicates No Risk (0-24 pts). Primary Survey: 10:48 NO uncontrolled hemorrhage observed. A: The patient is alert. Airway: patent. ll1 Breathing/Chest: Respiratory pattern: regular, Respiratory effort: spontaneous, unlabored, Breath sounds: clear, Chest inspection: symmetrical rise and fall of the chest. Circulation: Heart tones present. Pulses: palpable right radial artery, right dorsalis pedis artery, left radial artery and left dorsalis pedis artery. Skin color: pink, Skin temperature: warm. Disability Alert. Exposure/Environment: There is no evidence of uncontrolled external bleeding. Obvious injury(ies) are noted at this time: Bilateral ankle pain. 10:50 Reassessment Airway Airway Patent Breathing/Chest Respiratory pattern Regular ll1 Respiratory effort Spontaneous Breath sounds Clear Chest inspection Symmetrical Circulation Color [employer] Disability Alert. Assessment: 10:40 General: Appears in no apparent distress. Behavior is calm, cooperative. Pain: ll1 Complains of pain in Bilateral ankle pain Quality of pain is described as aching, Pain began 1 day ago. Neuro: No deficits noted. Cardiovascular: No deficits noted. Respiratory: No deficits noted. GI: No deficits noted. Musculoskeletal: Circulation, motion, and sensation intact. Capillary refill < 3 seconds, Swelling present in L lateral ankle Tenderness present in L lateral ankle Reports pain in Both ankles. Injury Description: Bruise. 11:40 Reassessment: Patient and/or family updated on plan of care and expected duration. Pain ll1 level reassessed. Patient is alert, oriented x 3, equal unlabored respirations, skin warm/dry/pink. Vital Signs: 10:28 BP 98 / 73; Pulse 72; Resp 16; Temp 97.9; Pulse Ox 100% on R/A; Weight 81.65 kg; Height hb 5 ft. 6 in. (167.64 cm); Pain 9/10; 12:00 BP 98 / 57; Pulse 70; Resp 16; Pulse Ox 100% ; ll1 10:28 Body Mass Index 29.05 (81.65 kg, 167.64 cm) hb Austin Coma Score: 10:49 Eye Response: spontaneous(4). Verbal Response: oriented(5). Motor Response: obeys ll1 commands(6). Total: 15. Trauma Score (Adult): 10:48 Eye Response: spontaneous(1); Verbal Response: oriented(1); Motor Response: obeys ll1 commands(2); Systolic BP: > 89 mm Hg(4); Respiratory Rate: 10 to 29 per min(4); Austin Score: 15; Trauma Score: 12 ED Course: 10:15 Patient arrived in ED. ds1 10:16 Wilda Galvez FNP-C is [facility] jasmin 10:16 Vincent Perez MD is Attending Physician. kb 10:28 Triage completed. hb 10:30 Arm band placed on. hb 10:33 Portillo Bond, RN is Primary Nurse. ll1 10:49 Patient has correct armband on for positive identification. Bed in low position. Call ll1 light in reach. Side rails up X 1. Adult w/ patient. Cardiac monitoring not applicable on this patient. 10:49 Patient maintains SpO2 saturation greater than 95% on room air. ll1 10:50 Thermoregulation: warm blanket given to patient. ll1 11:07 Ankle Left 3 View XRAY In Process Unspecified. EDMS 11:07 Ankle Right 3 View XRAY In Process Unspecified. EDMS 12:00 No provider procedures requiring assistance completed. Patient did not have IV access ll1 during this emergency room visit. Administered Medications: 10:42 Drug: Ibuprofen 800 mg Route: PO; ll1 12:00 Follow up: Response: No adverse reaction; RASS: Alert and Calm (0) ll1 Intake: 12:00 PO: 50ml; Total: 50ml. ll1 Output: 12:00 Urine: 200ml (Voided); Total: 200ml. ll1 Outcome: 11:42 Discharge ordered by . kb 12:00 Patient's length of stay was not longer than 2 hours. ll1 12:03 Patient left the ED. ll1 12:03 Discharged to home via wheelchair. ll1 12:03 Condition: stable 12:03 Discharge instructions given to patient, Instructed on discharge instructions, follow up and referral plans. medication usage, Demonstrated understanding of instructions, follow-up care, medications, Prescriptions given X 1. Signatures: Dispatcher [employer] EDVT Wilda Galvez FNP-C FNP-Ckb Sanford, Demi ds1 Rosey Dong RN RN Portillo Bond, ARY RN ll1 Corrections: (The following items were deleted from the chart) 18:28 18:28 PO 50, Intake Total 50; Urine 200, (Voided), Output Total 200. ll1 ll1
[2020-02-13 12:08] VITALS: BP 98/73; TEMP 97.9; O2SAT 100
== END 2020-02-13 12:03 | disposition home or self-care (01) ==
LOC: ER 10:04
DX: S93.402A Sprain of unspecified ligament of left ankle, initial encounter (principal); S93.401A Sprain of unspecified ligament of right ankle, initial encounter; M25.571 Pain in right ankle and joints of right foot; W10.9XXA Fall (on) (from) unspecified stairs and steps, initial encounter; Y93.9 Activity, unspecified; Y92.9 Unspecified place or not applicable
CPT/HCPCS: 99284